=== PATIENT | female | born 1940 | race Caucasian/White ===

== ENCOUNTER 2017-03-16 00:07 | Inpatient (IN) | payer MEDICARE, OTHER ==
[2017-03-16] VITALS (23 sets, daily range): BP systolic 53–125; BP diastolic 32–85; PULSE 67–121; RESP 14–20; TEMP 97.7–101.7; O2SAT 92–100
[~2017-03-16] VITALS: Ht 157.5 cm; Wt 69.9 kg
[2017-03-16] MEDS ORDERED: ACETAMINOPHEN 325 MG TAB PO ONE ×2 (00:15)
[2017-03-16] MEDS ORDERED: IBUPROFEN 600 MG TAB PO ONE (00:15)
--- NOTE | 2017-03-16 00:16 | PD ---
HPI Chief Complaint: fever Time Seen by Provider: 00:09 Travel History International Travel<30 days: No Contact w/Intl Traveler<30days: No Traveled to known affect area: No History of Present Illness HPI This is a detention patient sent over for fever. Duration one day. Symptoms severity is moderate. She reports that she's got a cough productive of thick phlegm. Also had some runny nose and congestion. Denies shortness of breath or chest pain or vomiting or diarrhea or abdominal pains. Symptoms have no alleviating factors. PFSH Social History Alcohol Use: No Tobacco Use: No Substance Use: No Allergies-Medications (Allergen,Severity, Reaction): Coded Allergies: cephalexin (Verified Allergy, Unknown, 03/16/17) erythromycin base (Verified Allergy, Unknown, 03/16/17) shellfish derived (Verified Allergy, Unknown, 03/16/17) Reported Meds & Prescriptions Reported Meds & Active Scripts Active Reported Triamcinolone Acetonide (Triamcinolone Acetonide (Topic) 100 % Pow BID Tizanidine (Tizanidine HCl) 2 Mg Cap 2 Mg PO TID Sennosides 8.6 Mg Tab 8.6 Mg PO HS Protonix (Pantoprazole Sodium) 40 Mg Tab 40 Mg PO DAILY Nystatin Topical (Nystatin) 100,000 unit/gm Cream 1 Applic TOPICAL BID [place] (Hydrocodone-Acetaminophen) 10-325 Mg Tab 1 Tab PO Q6H PRN Multiple Vitamins For Women (Multivit with Calcium,Iron,Min) 1 Each Tablet Mirtazapine 15 Mg Tab 15 Mg PO HS Milk of Magnesia Liq (Magnesium Hydroxide) 400 Mg/5 Ml Susp 15 Ml PO DAILY PRN Lac-Hydrin Five (Lactic Acid (Ammonium Lactate)) 5 % Lot Mucus Relief ER (Guaifenesin) 600 Mg Tab 600 Mg PO BID PRN Gabapentin 400 Mg Cap 400 Cap PO HS Fluticasone Nasal [place] 50 Mcg/Act Naspr 50 Mcg EACH NARE BID 50 mcg/spray Ferrous Sulfate 325 Mg (65 Mg Iron) Tablet 325 Mg PO DAILY Enema Disposable (Sodium Phosphates) 19 Gram-7 Gram/118 Ml Daniella Dulcolax Supp (Bisacodyl) 10 Mg Supp 10 Mg RECTAL DAILY PRN Colace (Docusate Sodium) 100 Mg Capsule 100 Mg PO TID Clonidine (Clonidine HCl) 0.1 Mg Tab 0.1 Mg PO TID Magnesium Citrate Liq (Magnesium Citrate) 300 Ml Btl Aspercreme Heat Topical (Menthol Topical) 10 % Gel 1 Applic TOPICAL DIRECTED PRN Albuterol Neb (Albuterol Sulfate) 2.5 Mg/3 Ml Neb 2.5 Mg NEB Q4HR NEB While awake Review of Systems General / Constitutional: Positive: Fever, Chills Eyes: No: Visual changes HENT: Positive: Rhinorrhea, Congestion, No: Headaches Cardiovascular: No: Chest Pain or Discomfort Respiratory: Positive: Cough, No: Shortness of Breath Gastrointestinal: No: Abdominal Pain Genitourinary: No: Dysuria Musculoskeletal: No: Pain Skin: No Rash Neurologic: No: Weakness Psychiatric: No: Depression Endocrine: No: Polydipsia Hematologic/Lymphatic: No: Easy Bruising Physical Exam Narrative GENERAL: Well-nourished, well-developed patient with fever and chills . SKIN: Focused skin assessment reveals no rash and nodules. Skin is Warm and dry. HEAD: Atraumatic. Normocephalic. EYES: Pupils equal and round. No scleral icterus. No injection or drainage. ENT: No nasal bleeding or discharge. Mucous membranes pink and dry . Nares shows rhinorrhea which is thick and yellow NECK: Trachea midline. No JVD. No meningeal signs CARDIOVASCULAR: Regular rate and rhythm. No murmur appreciated. RESPIRATORY: No accessory muscle use. Clear to auscultation. Breath sounds equal bilaterally. GASTROINTESTINAL: Abdomen soft, non-tender, nondistended. Hepatic and splenic margins not palpable. MUSCULOSKELETAL: No obvious deformities. No clubbing. No cyanosis. No edema. NEUROLOGICAL: Awake and alert. No obvious cranial nerve deficits. Motor grossly within normal limits. Normal speech. PSYCHIATRIC: Appropriate mood and affect; insight and judgment normal. Data Data Last Documented VS Vital Signs Date Time Temp Pulse Resp B/P (MAP) Pulse Ox O2 Delivery O2 Flow Rate FiO2 03/16/17 01:40 100.7 108 20 115/57 (76) 98 Room Air Orders Orders Complete Blood Count With Diff (03/16/17 00:09) Comprehensive Metabolic Panel (03/16/17 00:09) Lactic Acid Sepsis Protocol (03/16/17 00:09) Urinalysis - C+S If Indicated (03/16/17 00:09) Influenzae A/B Antigen (03/16/17 00:09) Blood Culture (03/16/17 00:09) Chest, Single Ap (03/16/17 00:09) Ecg Monitoring (03/16/17 00:09) Iv Access Insert/Monitor (03/16/17 00:09) Oximetry (03/16/17 00:09) Acetaminophen (Tylenol) (03/16/17 00:15) Acetaminophen (Tylenol) (03/16/17 00:15) Ibuprofen (Motrin) (03/16/17 00:15) Sodium Chlor 0.9% 1000 Ml Inj (Ns 1000 M (03/16/17 00:15) Urine Culture (03/16/17 01:10) Labs Laboratory Tests Test 03/16/17 00:10 03/16/17 01:10 White Blood Count 6.0 TH/MM3 Red Blood Count 4.21 MIL/MM3 Hemoglobin 12.5 GM/DL Hematocrit 38.6 % Mean Corpuscular Volume 91.7 FL Mean Corpuscular Hemoglobin 29.6 PG Mean Corpuscular Hemoglobin Concent 32.3 % Red Cell Distribution Width 15.1 % Platelet Count 208 TH/MM3 Mean Platelet Volume 7.7 FL Neutrophils (%) (Auto) 94.2 % Lymphocytes (%) (Auto) 3.9 % Monocytes (%) (Auto) 0.7 % Eosinophils (%) (Auto) 1.1 % Basophils (%) (Auto) 0.1 % Neutrophils # (Auto) 5.7 TH/MM3 Lymphocytes # (Auto) 0.2 TH/MM3 Monocytes # (Auto) 0.0 TH/MM3 Eosinophils # (Auto) 0.1 TH/MM3 Basophils # (Auto) 0.0 TH/MM3 CBC Comment DIFF FINAL Differential Comment Blood Urea Nitrogen 48 MG/DL Creatinine 2.47 MG/DL Random Glucose 108 MG/DL Total Protein 7.6 GM/DL Albumin 3.2 GM/DL Calcium Level 8.6 MG/DL Alkaline Phosphatase 168 U/L Aspartate Amino Transf (AST/SGOT) 52 U/L Alanine Aminotransferase (ALT/SGPT) 48 U/L Total Bilirubin 0.3 MG/DL Sodium Level 137 MEQ/L Potassium Level 4.1 MEQ/L Chloride Level 100 MEQ/L Carbon Dioxide Level 24.0 MEQ/L Anion Gap 13 MEQ/L Estimat Glomerular Filtration Rate 19 ML/MIN Lactic Acid Level 3.9 mmol/L Urine Color YELLOW Urine Turbidity CLOUDY Urine pH 7.5 Urine Specific [place] 1.013 Urine Protein 100 mg/dL Urine Glucose (UA) NEG mg/dL Urine Ketones NEG mg/dL Urine Occult Blood MOD Urine Nitrite NEG Urine Bilirubin NEG Urine Urobilinogen LESS THAN 2.0 MG/DL Urine Leukocyte Esterase LARGE Urine RBC 14 /hpf Urine WBC /hpf Urine WBC Clumps MANY Urine Squamous Epithelial Cells 1 /hpf Urine Transitional Epithelial Cells <1 /hpf Urine Renal Epithelial Cells <1 /hpf Urine Bacteria MANY /hpf Microscopic Urinalysis Comment CATH-CULTURE IND MDM Medical Decision Making Medical Screen Exam Complete: Yes Emergency Medical Condition: Yes Medical Record Reviewed: Yes Differential Diagnosis Pneumonia, sepsis, URI, UTI Narrative Course I have reviewed the patient's electronic medical record. Patient has chronic indwelling Nagy catheter for urinary retention IV placed 2 blood culture sets obtained I gave her Tylenol and Motrin for fever CBC is normal Metabolic profile is reviewed LFTs are normal Urinalysis shows innumerable inflammatory cells and bacteria Lactate is quite elevated at 3.9 I reviewed her chest x-ray shows no infiltrate Influenza swab is negative I gave her 1 L normal saline IV bolus Giving her a second liter normal saline IV bolus. She looks very dry on exam Patient meets criteria for severe sepsis due to UTI with indwelling catheter. Starting her on some IV antibiotics. Will discuss with for admission Critical Care Narrative Aggregate critical care time was 36 minutes. Time to perform other separately billable procedures was not included in the critical care time. My time did not include minutes spent treating any other patients simultaneously or on activities that did not directly contribute to the patient's treatment. The services I provided to this patient were to treat and/or prevent clinically significant deterioration that could result in: Cardiopulmonary arrest, septic shock I provided critical care services requiring my management, as noted below: Chart data review, documentation time, medication orders and management, vital sign assessments/reviewing monitor data, ordering and reviewing lab tests, ordering and interpreting/reviewing x-rays and diagnostic studies, care of the patient and discussion of the patient with the admitting physicians. Sepsis Criteria SIRS Criteria (2 or more): Temp > 100.9 or < 96.8, Heart rate over 90 Sepsis Criteria (SIRS+source): Infect source susp/known Severe Sepsis (+one): Lactate >2 Criteria Outcome: Meets severe sepsis criteria Diagnosis Primary Impression: Severe sepsis Additional Impressions: Bronchitis UTI (urinary tract infection) Qualified Codes: T83.511A - Infection and inflammatory reaction due to indwelling urethral catheter, initial encounter; N39.0 - Urinary tract infection , site not specified Admitting Information Admitting Physician Requests: it Valeriy Phillips MD Mar 16, 2017 00:16
[2017-03-16 00:52] LABS: AUTOMATED NEUTROPHIL # 5.7 TH/MM3 (1.8-7.7); BASOPHIL % 0.1 % (0.0-2.0); EOSINOPHIL # 0.1 TH/MM3 (0-0.4); EOSINOPHIL % 1.1 % (0.0-4.0); HEMATOCRIT 38.6 % (35.0-46.0); HEMO FLAGS DIFF FINAL; LYMPH % 3.9 % (9.0-44.0); LYMPHOCYTE # 0.2 TH/MM3 (1.0-4.8); MEAN CELL VOLUME 91.7 FL (80.0-100.0); MEAN CORPUSCULAR HEMOGLOBIN 29.6 PG (27.0-34.0); MEAN CORPUSCULAR HGB CONC 32.3 % (32.0-36.0); MONO % 0.7 % (0.0-8.0); NEUT % 94.2 % (16.0-70.0); PLATELET COUNT 208 TH/MM3 (150-450); RED BLOOD COUNT 4.21 MIL/MM3 (4.00-5.30); RED CELL DISTRIBUTION WIDTH 15.1 % (11.6-17.2)
[2017-03-16] MEDS: SODIUM CHLOR 0.9% 1000 ML INJ 1,000 ML IV SCH ×13 (00:58→23:53)
--- NOTE | 2017-03-16 01:03 | RADRPT ---
EXAM DATE/TIME: 03/16/2017 00:41 [facility] COMPARISON: No previous studies available for comparison. INDICATIONS : New onset of fever and nausea. MEDICAL HISTORY : None. SURGICAL HISTORY : None. ENCOUNTER: Initial ACUITY: 1 day PAIN SCORE: 0/10 LOCATION: Bilateral chest FINDINGS: A single view of the chest demonstrates the lungs to be symmetrically aerated without evidence of mas s, infiltrate or effusion. The cardiomediastinal contours are unremarkable. Osseous structures are intact. CONCLUSION: No acute disease. Keith Ahuja MD on March 16, 2017 at 1:00 Board Certified Radiologist. This report was verified electronically.
[2017-03-16 01:09] LABS: ALT (GPT) 48 U/L (10-53); ANION GAP 13 MEQ/L (5-15); AST (GOT) 52 U/L (15-37); BLOOD UREA NITROGEN 48 MG/DL (7-18); CHLORIDE 100 MEQ/L (98-107); GLOMERULAR FILTRATION RATE 19 ML/MIN (>89); POTASSIUM 4.1 MEQ/L (3.5-5.1); SODIUM (NA) 137 MEQ/L (136-145)
[2017-03-16 01:11] LABS: ALKALINE PHOSPHATASE 168 U/L (45-117); TOTAL BILIRUBIN ADULT 0.3 MG/DL (0.2-1.0)
[2017-03-16] MEDS ORDERED: SENN8.6T81 PO (01:29)
[2017-03-16] MEDS ORDERED: ENEMENE5 (01:29)
[2017-03-16] MEDS ORDERED: DULC10SU3 RECTAL (01:29)
[2017-03-16] MEDS ORDERED: GUAI600T11 PO (01:29)
[2017-03-16] MEDS ORDERED: PROT40TA PO (01:29)
[2017-03-16] MEDS ORDERED: COLA100C PO (01:29)
[2017-03-16] MEDS ORDERED: TIZA2CAP3 PO (01:29)
[2017-03-16] MEDS ORDERED: MILKSUS PO (01:29)
[2017-03-16] MEDS ORDERED: MIRTA15 PO (01:29)
[2017-03-16] MEDS ORDERED: FLUT50SP EACH NARE (01:29)
[2017-03-16] MEDS ORDERED: GABA400C5 PO (01:29)
[2017-03-16] MEDS ORDERED: CLON0.1T PO (01:29)
[2017-03-16] MEDS ORDERED: MULT-177 (01:29)
[2017-03-16] MEDS ORDERED: MAGNSOL (01:29)
[2017-03-16] MEDS ORDERED: FERR325T8 PO (01:29)
[2017-03-16] MEDS ORDERED: NYST15T TOPICAL (01:29)
[2017-03-16] MEDS ORDERED: ASPE10GE TOPICAL (01:29)
[2017-03-16] MEDS ORDERED: ALBU0.08 NEB (01:29)
[2017-03-16] MEDS ORDERED: HYDR-3366 PO (01:29)
[2017-03-16] MEDS ORDERED: LAC-LOT2 (01:29)
[2017-03-16] MEDS ORDERED: TRIAPOW (01:29)
[2017-03-16 01:32] LABS: BACTERIA, URINE MANY /hpf; BLOOD, URINE MOD (NEG); COMMENT (UR) CATH-CULTURE IND; CULTURE IF INDICATED CATH CULTURE IND; GLUCOSE,URINE NEG (NEG); KETONE, URINE NEG (NEG); NITRITE,URINE NEG (NEG); PH, URINE 7.5 (5.0-8.5); RENAL EPITHELIAL CELLS <1 /hpf; SQUAMOUS EPITHELIAL CELL URINE 1 /hpf (0-5); TRANSITIONAL EPI CELLS, URINE <1 /hpf; URINE COLOR YELLOW (YELLW/STRAW)
[2017-03-16] MEDS ORDERED: GENTAMICIN INJ 325 MG in SODIUM CHLORIDE 0.9% INJ 100 ML IV ONE (02:00)
[2017-03-16] MEDS ORDERED: NALOXONE HCL 0.4 MG/ML AMP IV PRN (02:15)
[2017-03-16] MEDS ORDERED: SODIUM CHLORIDE 0.9% FLUSH 10 ML FLUSH IV FLUSH PRN (02:15)
[2017-03-16 02:44] LABS: LACTIC ACID GHOST NOT REPORTABLE
--- NOTE | 2017-03-16 04:22 | HHI.HP ---
[facility] Janes Sibley MD Admission Diagnosis severe sepsis from UTI Diagnoses: Chief Complaint: fever and lethargy Travel History International Travel<30 Days: No Contact w/Intl Traveler <30 Da: No Traveled to Known Affected Are: No Sepsis Criteria SIRS Criteria (2 or more): Temp > 100.9 or < 96.8, Heart rate over 90 Sepsis Criteria (SIRS+source): Infect source susp/known Severe Sepsis (+one): Lactate >2 Criteria Outcome: Meets severe sepsis criteria History of Present Illness Written by JIMY Howell acting as scribe for [Jonna] on 03/16/17 at 04: 20. 76 y/o female with a history of gerd, anemia, HTN, depression, hypothyroid, and urinary retention with a chronic catheter was brought to the ED from a SNF for fever. Patient states she started vomiting today, and does not know the last time her catheter was changed. Patient is lethargic and ROS is difficult to assess. She denies any chest pain or sob. She grimaces when abdomen is palpitated. She is very diaphoretic at this time. Most of patients history is obtained from long-term documentation. Review of Systems ROS Limitations: Other (Lethargic) Past Family Social History Past Medical History Gerd Anemia HTN Urinary retention Depression Hypothyroid Past Surgical History Left hip repair Reported Medications Reported Meds & Active Scripts Active Reported Triamcinolone Acetonide (Triamcinolone Acetonide (Topic) 100 % Pow BID Tizanidine (Tizanidine HCl) 2 Mg Cap 2 Mg PO TID Sennosides 8.6 Mg Tab 8.6 Mg PO HS Protonix (Pantoprazole Sodium) 40 Mg Tab 40 Mg PO DAILY Nystatin Topical (Nystatin) 100,000 unit/gm Cream 1 Applic TOPICAL BID [place] (Hydrocodone-Acetaminophen) 10-325 Mg Tab 1 Tab PO Q6H PRN Multiple Vitamins For Women (Multivit with Calcium,Iron,Min) 1 Each Tablet Mirtazapine 15 Mg Tab 15 Mg PO HS Milk of Magnesia Liq (Magnesium Hydroxide) 400 Mg/5 Ml Susp 15 Ml PO DAILY PRN Lac-Hydrin Five (Lactic Acid (Ammonium Lactate)) 5 % Lot Mucus Relief ER (Guaifenesin) 600 Mg Tab 600 Mg PO BID PRN Gabapentin 400 Mg Cap 400 Cap PO HS Fluticasone Nasal [place] 50 Mcg/Act Naspr 50 Mcg EACH NARE BID 50 mcg/spray Ferrous Sulfate 325 Mg (65 Mg Iron) Tablet 325 Mg PO DAILY Enema Disposable (Sodium Phosphates) 19 Gram-7 Gram/118 Ml Daniella Dulcolax Supp (Bisacodyl) 10 Mg Supp 10 Mg RECTAL DAILY PRN Colace (Docusate Sodium) 100 Mg Capsule 100 Mg PO TID Clonidine (Clonidine HCl) 0.1 Mg Tab 0.1 Mg PO TID Magnesium Citrate Liq (Magnesium Citrate) 300 Ml Btl Aspercreme Heat Topical (Menthol Topical) 10 % Gel 1 Applic TOPICAL DIRECTED PRN Albuterol Neb (Albuterol Sulfate) 2.5 Mg/3 Ml Neb 2.5 Mg NEB Q4HR NEB While awake Allergies: Coded Allergies: cephalexin (Verified Allergy, Unknown, 03/16/17) erythromycin base (Verified Allergy, Unknown, 03/16/17) shellfish derived (Verified Allergy, Unknown, 03/16/17) Active Ordered Medications Current Medications Medications (Trade) Dose Ordered Sig/Marni Route Start Time Stop Time Status Last Admin Sodium Chloride 1,000 ml @ 999 mls/hr Q1H1M IV 03/16/17 00:15 03/16/17 00:58 (NS Flush) 2 ml UNSCH PRN IV FLUSH 03/16/17 02:15 (NS Flush) 2 ml BID IV FLUSH 03/16/17 09:00 (Narcan Inj) 0.4 mg UNSCH PRN IV 03/16/17 02:15 Levofloxacin/ Dextrose 150 ml @ 100 mls/hr Q24H IV 03/16/17 09:00 Sodium Chloride 1,000 ml @ 100 mls/hr Q10H IV 03/16/17 04:30 Family History Family history is unknown Social History Patient does not smoke, drink or use illicit drugs. Physical Exam Vital Signs Vital Signs Date Time Temp Pulse Resp B/P (MAP) Pulse Ox O2 Delivery O2 Flow Rate FiO2 03/16/17 03:35 106 19 118/62 (80) 97 Room Air 03/16/17 01:40 100.7 108 20 115/57 (76) 98 Room Air 03/16/17 00:59 106 19 98 Room Air 03/16/17 00:11 101.7 121 20 124/84 (97) 93 03/16/17 00:10 20 93 Room Air Physical Exam GENERAL: This is a well-nourished, well-developed patient, in no apparent distress. SKIN: Diaphoretic HEAD: Atraumatic. Normocephalic. EYES: Pupils equal round and reactive. ENT: Nose without bleeding, purulent drainage or septal hematoma. Airway patent. NECK: Trachea midline. No JVD or lymphadenopathy. Supple, nontender, no meningeal signs. CARDIOVASCULAR: Regular rate and rhythm with a systolic murmurs, no gallops, or rubs. RESPIRATORY: Clear to auscultation. Breath sounds equal bilaterally. No wheezes , rales, or rhonchi. GASTROINTESTINAL: Abdomen soft, tender, nondistended. No hepato-splenomegaly, or palpable masses. No guarding. MUSCULOSKELETAL: Extremities without clubbing, cyanosis, or edema. No joint tenderness, effusion, or edema noted. No calf tenderness. NEUROLOGICAL: Sleepy and intermittently alert. Motor and sensory grossly within normal limits. Normal speech. Laboratory Laboratory Tests Test 03/16/17 00:10 03/16/17 01:10 03/16/17 03:00 White Blood Count 6.0 Red Blood Count 4.21 Hemoglobin 12.5 Hematocrit 38.6 Mean Corpuscular Volume 91.7 Mean Corpuscular Hemoglobin 29.6 Mean Corpuscular Hemoglobin Concent 32.3 Red Cell Distribution Width 15.1 Platelet Count 208 Mean Platelet Volume 7.7 Neutrophils (%) (Auto) 94.2 Lymphocytes (%) (Auto) 3.9 Monocytes (%) (Auto) 0.7 Eosinophils (%) (Auto) 1.1 Basophils (%) (Auto) 0.1 Neutrophils # (Auto) 5.7 Lymphocytes # (Auto) 0.2 Monocytes # (Auto) 0.0 Eosinophils # (Auto) 0.1 Basophils # (Auto) 0.0 CBC Comment DIFF FINAL Differential Comment Blood Urea Nitrogen 48 Creatinine 2.47 Random Glucose 108 Total Protein 7.6 Albumin 3.2 Calcium Level 8.6 Alkaline Phosphatase 168 Aspartate Amino Transf (AST/SGOT) 52 Alanine Aminotransferase (ALT/SGPT) 48 Total Bilirubin 0.3 Sodium Level 137 Potassium Level 4.1 Chloride Level 100 Carbon Dioxide Level 24.0 Anion Gap 13 Estimat Glomerular Filtration Rate 19 Lactic Acid Level 3.9 2.4 Urine Color YELLOW Urine Turbidity CLOUDY Urine pH 7.5 Urine Specific [place] 1.013 Urine Protein 100 Urine Glucose (UA) NEG Urine Ketones NEG Urine Occult Blood MOD Urine Nitrite NEG Urine Bilirubin NEG Urine Urobilinogen LESS THAN 2.0 Urine Leukocyte Esterase LARGE Urine RBC 14 Urine WBC Urine WBC Clumps MANY Urine Squamous Epithelial Cells 1 Urine Transitional Epithelial Cells <1 Urine Renal Epithelial Cells <1 Urine Bacteria MANY Microscopic Urinalysis Comment CATH-CULTURE IND Date/Time Source Procedure Growth Status 03/16/17 00:30 Blood Peripheral Aerobic Blood Culture Pending Received 03/16/17 00:30 Blood Peripheral Anaerobic Blood Culture Pending Received 03/16/17 00:20 Nasal Washing Influenza Types A,B Antigen (TRUDI) - Final NEGATIVE FOR FLU A AND B ANTIGEN.... Complete 03/16/17 01:10 Urine Catheterized Urine Urine Culture Pending Received Result Diagram: 03/16/17 0010 03/16/17 0010 Imaging Last Impressions Chest X-Ray 03/16/17 0009 Signed Impressions: Service Date/Time: February 00:41 - CONCLUSION: No acute disease. MD Destin Salgadoi VTE Risk Assessment Caprini VTE Risk Assessment: Mod/High Risk (score >= 2) Caprini Risk Assessment Model Point Value = 1 Point Value = 2 Point Value = 3 Point Value = 5 Age 41-60 Minor surgery BMI > 25 kg/m2 Swollen legs Varicose veins or History of unexplained or recurrent spontaneous Oral contraceptives or hormone replacement Sepsis (< 1 month) Serious lung disease, including pneumonia (< 1 month) Abnormal pulmonary function Acute myocardial infarction Congestive heart failure (< 1 month) History of inflammatory bowel disease Medical patient at bed rest Age 61-74 Arthroscopic surgery Major open surgery (> 45 min) Laparoscopic surgery (> 45 min) Malignancy Confined to bed (> 72 hours) Immobilizing plaster cast Central venous access Age >= 75 History of VTE Family history of VTE Factor V Leiden Prothrombin [id number] Lupus anticoagulant Anticardiolipin antibodies Elevated serum homocysteine Heparin-induced thrombocytopenia Other congenital or acquired thrombophilia Stroke (< 1 month) Elective arthroplasty Hip, pelvis, or leg fracture Acute spinal cord injury (< 1 month) Prophylaxis Regimen Total Risk Factor Score Risk Level Prophylaxis Regimen 0-1 Low Early ambulation 2 Moderate Order ONE of the following: *Sequential Compression Device (SCD) *Heparin 5000 units SQ BID 3-4 Higher Order ONE of the following medications: *Heparin 5000 units SQ TID *Enoxaparin/Lovenox 40 mg SQ daily (WT < 150 kg, CrCl > 30 mL/min) *Enoxaparin/Lovenox 30 mg SQ daily (WT < 150 kg, CrCl > 10-29 mL/min) *Enoxaparin/Lovenox 30 mg SQ BID (WT < 150 kg, CrCl > 30 mL/min) AND/OR *Sequential Compression Device (SCD) 5 or more Highest Order ONE of the following medications: *Heparin 5000 units SQ TID (Preferred with Epidurals) *Enoxaparin/Lovenox 40 mg SQ daily (WT < 150 kg, CrCl > 30 mL/min) *Enoxaparin/Lovenox 30 mg SQ daily (WT < 150 kg, CrCl > 10-29 mL/min) *Enoxaparin/Lovenox 30 mg SQ BID (WT < 150 kg, CrCl > 30 mL/min) AND *Sequential Compression Device (SCD) Assessment and Plan Problem List: (1) Severe sepsis ICD Code: A41.9 - Sepsis, unspecified organism; R65.20 - Severe sepsis without septic shock Status: Acute (2) Bronchitis ICD Code: J40 - Bronchitis, not specified as acute or chronic Status: Acute (3) UTI (urinary tract infection) ICD Code: N39.0 - Urinary tract infection, site not specified Status: Acute Assessment and Plan 76 y/o female with a history of gerd, anemia, HTN, depression, hypothyroid, and urinary retention with a chronic catheter was brought to the ED from a SNF for fever. Severe sepsis, HR 121, T Max 101.7, lactic acid 3.9, suspected due to UTI from chronic indwelling catheter Chest x ray reviewed and is unremarkable -IV antibiotics vancomycin, and Zosyn -2 L bolus given in ED -Trend lactic acid -IVF for hydration -Blood culture and urine culture pending Acute Kidney injury, creatine 2.4, unknown baseline, suspected dehydration -Cont IVF as above -Trend BMP Bronchitis, patient with cough Nasal washing negative for flu -Atrovent scheduled and PRN HTN, chronic -Cont home medication Catapres, monitor vitals DVT prophylaxis: SCDs and Heparin This note was transcribed by scribe [Brianna Robbins]. I, Dr. Bala Coyle personally performed the history, physical exam, and medical decision making; and confirmed the accuracy of the information in the transcribed note. Authenticated by Dr. Bala Coyle on 03/16/17 at 04:20. Discussed Condition With Patient, RN and Ed physician Physician Certification 2 Midnight Certification Type: Admission for Inpatient Services Order for Inpatient Services The services are ordered in accordance with Medicare regulations or non- Medicare payer requirements, as applicable. In the case of services not specified as inpatient-only, they are appropriately provided as inpatient services in accordance with the 2-midnight benchmark. Estimated LOS (days): 3 days is the estimated time the patient will need to remain in the hospital, assuming treatment plan goals are met and no additional complications. Post-Hospital Plan: SNF Problem Qualifiers (1) UTI (urinary tract infection): Qualified Codes: T83.511A - Infection and inflammatory reaction due to indwelling urethral catheter, initial encounter; N39.0 - Urinary tract infection , site not specified Brianna Robbins Mar 16, 2017 04:22 Bala Coyle MD Mar 17, 2017 09:21
[2017-03-16] MEDS ORDERED: RESP: IPRATROPIUM 0.5 MG/2.5 ML NEB NEB PRN (04:30)
[2017-03-16] MEDS ORDERED: Vancomycin Consult Pharmacy 1 EA OTHER SCH (04:45)
[2017-03-16] MEDS ORDERED: PIPERACIL-TAZO 4.5 GM PREMIX 100 ML IV SCH (04:45)
[2017-03-16] MEDS ORDERED: VANCOMYCIN 1,000 MG/NS 250 ML IV ONE ×2 (05:00)
[2017-03-16] MEDS: HEPARIN SODIUM - SQ 10,000 UNITS/ML VIAL SQ SCH ×3 (06:15→21:54)
[2017-03-16] MEDS: RESP: IPRATROPIUM 0.5 MG/2.5 ML NEB NEB SCH ×2 (08:38→22:47)
[2017-03-16] MEDS: PANTOPRAZOLE SOD 40 MG DELAYED RELEASE TAB PO SCH (09:00)
[2017-03-16] MEDS ORDERED: cloNIDine HCL 0.1 MG TAB PO SCH (09:00)
[2017-03-16] MEDS: FERROUS SULFATE 325 MG (65 MG ELEMENTAL IRON) TAB PO SCH (09:00)
[2017-03-16] MEDS: DOCUSATE SODIUM 100 MG CAP PO SCH ×3 (09:00→18:00)
[2017-03-16] MEDS: LEVOFLOXACIN 750 MG PREMIX INJ 150 ML IV SCH (09:43)
[2017-03-16] MEDS: SODIUM CHLORIDE 0.9% FLUSH 10 ML FLUSH IV FLUSH SCH ×2 (09:43→21:53)
--- NOTE | 2017-03-16 09:53 | HHI.PR ---
Subjective Remarks Follow-up UTI, sepsis. Patient is sleeping, but awakens and answers questions briefly before falling asleep again. Objective Vitals Vital Signs Date Time Temp Pulse Resp B/P (MAP) Pulse Ox O2 Delivery O2 Flow Rate FiO2 03/16/17 09:42 84/64 (71) 03/16/17 09:00 85 03/16/17 08:38 92 Nasal Cannula 4.00 03/16/17 08:00 97.7 91 14 89/51 (64) 03/16/17 07:00 88 03/16/17 05:00 98.1 98 18 125/78 (94) 94 03/16/17 04:19 03/16/17 03:35 106 19 118/62 (80) 97 Room Air 03/16/17 01:40 100.7 108 20 115/57 (76) 98 Room Air 03/16/17 00:59 106 19 98 Room Air 03/16/17 00:11 101.7 121 20 124/84 (97) 93 03/16/17 00:10 20 93 Room Air I/O 03/15/17 03/15/17 03/15/17 03/16/17 03/16/17 03/16/17 07:00 15:00 23:00 07:00 15:00 23:00 Intake Total 0 ml Balance 0 ml Intake Oral 0 ml Result Diagram: 03/16/17 0010 03/16/17 0010 Imaging Last Impressions Chest X-Ray 03/16/17 0009 Signed Impressions: Service Date/Time: February 00:41 - CONCLUSION: No acute disease. Keith Ahuja MD Objective Remarks General: Elderly female in no acute distress. Heart: Regular rate and rhythm. No murmur. Lungs: Clear to auscultation bilaterally. No wheezes, rales, or rhonchi. Breathing is nonlabored. Abdomen: Soft, nontender, nondistended. Extremities: No lower extremity edema. Psych: Sleeping. Awakens to verbal stimuli, but falls asleep again quickly. Procedures None Urinary Catheter: Yes Assessment to: Continue Mccarty insert reason: Obstruction/Retention Vascular Central Line Catheter: No A/P Problem List: (1) Severe sepsis ICD Code: A41.9 - Sepsis, unspecified organism; R65.20 - Severe sepsis without septic shock Status: Acute (2) Bronchitis ICD Code: J40 - Bronchitis, not specified as acute or chronic Status: Acute (3) UTI (urinary tract infection) ICD Code: N39.0 - Urinary tract infection, site not specified Status: Acute (4) Urinary retention ICD Code: R33.9 - Retention of urine, unspecified Assessment and Plan 1. Severe sepsis: Patient presented with tachycardia, fever, elevated lactic acid. Source suspected to be UTI. Patient has chronic indwelling Mccarty catheter. Continue IV antibiotics. Serum lactic acid trending down. Continue IV fluids. Blood and urine cultures are pending. Consult infectious disease. Replace mccarty catheter. 2. Acute kidney injury: Continue IV fluids. Repeat labs. 3. Bronchitis: Influenza negative. Atrovent scheduled and as needed. 4. Hypertension: Chronic. Continue clonidine. 5. DVT prophylaxis: SCDs, heparin. Problem Qualifiers (1) UTI (urinary tract infection): Qualified Codes: T83.511A - Infection and inflammatory reaction due to indwelling urethral catheter, initial encounter; N39.0 - Urinary tract infection , site not specified Valeriy Monique MD Mar 16, 2017 09:53
[2017-03-16 12:31] LABS: AUTOMATED NEUTROPHIL # 20.5 TH/MM3 (1.8-7.7); EOSINOPHIL % 0.1 % (0.0-4.0); HEMATOCRIT 33.5 % (35.0-46.0); HEMO FLAGS DIFF FINAL; LYMPH % 2.9 % (9.0-44.0); LYMPHOCYTE # 0.7 TH/MM3 (1.0-4.8); MEAN CELL VOLUME 92.5 FL (80.0-100.0); MEAN CORPUSCULAR HEMOGLOBIN 29.5 PG (27.0-34.0); MEAN CORPUSCULAR HGB CONC 31.9 % (32.0-36.0); MONO % 5.5 % (0.0-8.0); NEUT % 91.5 % (16.0-70.0); PLATELET COUNT 204 TH/MM3 (150-450); RED BLOOD COUNT 3.62 MIL/MM3 (4.00-5.30); RED CELL DISTRIBUTION WIDTH 15.8 % (11.6-17.2); WHITE BLOOD COUNT 22.4 TH/MM3 (4.0-11.0)
[2017-03-16 12:54] LABS: BICARBONATE 22.9 MEQ/L (21.0-32.0); POTASSIUM 3.9 MEQ/L (3.5-5.1)
--- NOTE | 2017-03-16 14:20 | PD.CONS ---
[facility] Service Critical Care Medicine Consult Requested By Dr. Monique Reason for Consult hypotension Primary Care Physician Janes Sibley MD History of Present Illness This is a 76-year-old female with a history of urinary retention with chronic Nagy catheter who was brought in on 03/15 from her care home facility with fever. She was per report lethargic in the emergency department. She was admitted to the hospital with a presumptive diagnosis of catheter associated urinary tract infection from her outside facility. In the emergency department she was given a dose of Zosyn IV, gentamicin IV, vancomycin IV. She was admitted in the hospitalist team placed her on vancomycin and Levaquin. Despite optimal therapy, she continued to be altered and became more hypotensive throughout the morning. She was rapid response for persistent hypotension and transferred to the intensive care unit for closer monitoring and management of her now presumed septic shock. Critical care medicine is consulted to evaluate and manage her shock as well as her multiorgan dysfunction including acute kidney injury and metabolic encephalopathy. Unfortunately, the patient is to encephalopathic to answer questions and no additional history can be obtained from the patient. Review of Systems ROS Limitations: Clinical Condition, Altered Mental Status Past Family Social History Allergies: Coded Allergies: cephalexin (Verified Allergy, Unknown, 03/16/17) erythromycin base (Verified Allergy, Unknown, 03/16/17) shellfish derived (Verified Allergy, Unknown, 03/16/17) Past Medical History Gerd Anemia HTN Urinary retention Depression Hypothyroid Past Surgical History Left hip repair Reported Medications Triamcinolone Acetonide (Triamcinolone Acetonide (Topic) 100 % Pow BID Tizanidine (Tizanidine HCl) 2 Mg Cap 2 Mg PO TID Sennosides 8.6 Mg Tab 8.6 Mg PO HS Protonix (Pantoprazole Sodium) 40 Mg Tab 40 Mg PO DAILY Nystatin Topical (Nystatin) 100,000 unit/gm Cream 1 Applic TOPICAL BID [place] (Hydrocodone-Acetaminophen) 10-325 Mg Tab 1 Tab PO Q6H PRN Multiple Vitamins For Women (Multivit with Calcium,Iron,Min) 1 Each Tablet Mirtazapine 15 Mg Tab 15 Mg PO HS Milk of Magnesia Liq (Magnesium Hydroxide) 400 Mg/5 Ml Susp 15 Ml PO DAILY PRN Lac-Hydrin Five (Lactic Acid (Ammonium Lactate)) 5 % Lot Mucus Relief ER (Guaifenesin) 600 Mg Tab 600 Mg PO BID PRN Gabapentin 400 Mg Cap 400 Cap PO HS Fluticasone Nasal [place] 50 Mcg/Act Naspr 50 Mcg EACH NARE BID 50 mcg/spray Ferrous Sulfate 325 Mg (65 Mg Iron) Tablet 325 Mg PO DAILY Enema Disposable (Sodium Phosphates) 19 Gram-7 Gram/118 Ml Daniella Dulcolax Supp (Bisacodyl) 10 Mg Supp 10 Mg RECTAL DAILY PRN Colace (Docusate Sodium) 100 Mg Capsule 100 Mg PO TID Clonidine (Clonidine HCl) 0.1 Mg Tab 0.1 Mg PO TID Magnesium Citrate Liq (Magnesium Citrate) 300 Ml Btl Aspercreme Heat Topical (Menthol Topical) 10 % Gel 1 Applic TOPICAL DIRECTED PRN Albuterol Neb (Albuterol Sulfate) 2.5 Mg/3 Ml Neb 2.5 Mg NEB Q4HR NEB While awake Active Ordered Medications See MAR Family History Unknown and unobtainable due to the clinical condition of the patient. Unlikely to be contributory to her acute illness Social History Patient does not smoke, drink or use illicit drugs. Physical Exam Vital Signs Vital Signs Date Time Temp Pulse Resp B/P (MAP) Pulse Ox O2 Delivery O2 Flow Rate FiO2 03/16/17 12:00 82 03/16/17 11:00 88 03/16/17 10:00 89 03/16/17 09:42 84/64 (71) 03/16/17 09:00 85 03/16/17 08:38 92 Nasal Cannula 4.00 03/16/17 08:00 97.7 91 14 89/51 (64) 03/16/17 07:00 88 03/16/17 05:00 98.1 98 18 125/78 (94) 94 03/16/17 04:19 03/16/17 03:35 106 19 118/62 (80) 97 Room Air 03/16/17 01:40 100.7 108 20 115/57 (76) 98 Room Air 03/16/17 00:59 106 19 98 Room Air 03/16/17 00:11 101.7 121 20 124/84 (97) 93 03/16/17 00:10 20 93 Room Air Physical Exam GENERAL: Elderly female, lying in bed, critically ill, somnolent HEENT: Normocephalic. Atraumatic. Pupils equal, round, reactive, conjugate. Mucous membranes are dry NECK: Trachea is midline. There is no JVD. CHEST: Equal chest rise. Clear to auscultation. On nasal cannula oxygen CARDIOVASCULAR: Normal rate, regular rhythm. Heart rate in the 80s. Sinus by telemetry. ABDOMEN: Soft, nontender, nondistended. No guarding. MUSCULOSKELETAL: Pulses 2+. No peripheral edema. GENITOURINARY: Outside facility Nagy catheter in place with cloudy urine with large amount of sediment in it NEUROLOGICAL: RASS -2. Awakens. Follows commands weakly. Not oriented. Moves all extremities. Nonfocal. Laboratory Laboratory Tests Test 03/16/17 00:10 03/16/17 01:10 03/16/17 03:00 03/16/17 11:39 White Blood Count 6.0 22.4 Red Blood Count 4.21 3.62 Hemoglobin 12.5 10.7 Hematocrit 38.6 33.5 Mean Corpuscular Volume 91.7 92.5 Mean Corpuscular Hemoglobin 29.6 29.5 Mean Corpuscular Hemoglobin Concent 32.3 31.9 Red Cell Distribution Width 15.1 15.8 Platelet Count 208 204 Mean Platelet Volume 7.7 8.3 Neutrophils (%) (Auto) 94.2 91.5 Lymphocytes (%) (Auto) 3.9 2.9 Monocytes (%) (Auto) 0.7 5.5 Eosinophils (%) (Auto) 1.1 0.1 Basophils (%) (Auto) 0.1 0.0 Neutrophils # (Auto) 5.7 20.5 Lymphocytes # (Auto) 0.2 0.7 Monocytes # (Auto) 0.0 1.2 Eosinophils # (Auto) 0.1 0.0 Basophils # (Auto) 0.0 0.0 CBC Comment DIFF FINAL DIFF FINAL Differential Comment Blood Urea Nitrogen 48 52 Creatinine 2.47 2.53 Random Glucose 108 84 Total Protein 7.6 Albumin 3.2 Calcium Level 8.6 8.0 Alkaline Phosphatase 168 Aspartate Amino Transf (AST/SGOT) 52 Alanine Aminotransferase (ALT/SGPT) 48 Total Bilirubin 0.3 Sodium Level 137 139 Potassium Level 4.1 3.9 Chloride Level 100 105 Carbon Dioxide Level 24.0 22.9 Anion Gap 13 11 Estimat Glomerular Filtration Rate 19 18 Lactic Acid Level 3.9 2.4 Urine Color YELLOW Urine Turbidity CLOUDY Urine pH 7.5 Urine Specific [place] 1.013 Urine Protein 100 Urine Glucose (UA) NEG Urine Ketones NEG Urine Occult Blood MOD Urine Nitrite NEG Urine Bilirubin NEG Urine Urobilinogen LESS THAN 2.0 Urine Leukocyte Esterase LARGE Urine RBC 14 Urine WBC Urine WBC Clumps MANY Urine Squamous Epithelial Cells 1 Urine Transitional Epithelial Cells <1 Urine Renal Epithelial Cells <1 Urine Bacteria MANY Microscopic Urinalysis Comment CATH-CULTURE IND Date/Time Source Procedure Growth Status 03/16/17 00:30 Blood Peripheral Aerobic Blood Culture Pending Received 03/16/17 00:30 Blood Peripheral Anaerobic Blood Culture Pending Received 03/16/17 00:20 Nasal Washing Influenza Types A,B Antigen (TRUDI) - Final NEGATIVE FOR FLU A AND B ANTIGEN.... Complete 03/16/17 01:10 Urine Catheterized Urine Urine Culture Pending Received Result Diagram: 03/16/17 1139 03/16/17 1139 Imaging Last Impressions Chest X-Ray 03/16/17 0009 Signed Impressions: Service Date/Time: , March 16, 2017 00:41 - CONCLUSION: No acute disease. Keith Ahuja MD Assessment and Plan Assessment and Plan Assessment: 76 year old female with history of urinary retention now presents with Septic shock secondary to outside facility catheter associated urinary tract infection. Agree with transfer to ICU as her hypotension is worrisome. Will continue ivf resuscitation. Patient has a history of cephalosporin allergy , so we will proceed with broad spectrum abx coverage to cover health-care associated bacteria, to include Vancomycin, Levaquin, Aztreonam, and Flagyl. Await urine culture results. may require vasopressors. currently protecting airway, although would have high concern for possible decompensation requiring intubation. critically ill at this time. Plan by systems: Neurologic: Metabolic encephalopathy - secondary to septic shock - avoid long-acting sedating meds - hold tizanidine Respiratory: Atelectasis - aggressive pulmonary toilet - wean o2 by il for goal spo2 > 90% Cardiovascular: Septic Shock - continue mivf @ 100cc/hr - NS bolus - trend lactates - watch uop closely - if hypotension does not rapidly resolve with additional resuscitation, will need vasopressors Renal: Acute kidney injury - secondary to septic shock - watch uop closely - ivf as above. -- Strict I/Os FEN/GI: Lactic acidosis Acute protein calorie malnutrition- moderate - NPO while in shock - swallow evaluation given altered mental status - trend lactates - mivf Heme/ID: Urinary tract infection Septic shock - f/u cultures - Vanc, Levaquin, Aztreonam, Flagyl - ID consult. Endocrine: Hyperglycemia of critical illness -- SSI, medium scale, every 6 Prophylaxis: GI Prophylaxis Protonix DVT Prophylaxis -- SCDs Subcutaneous heparin Lines: Peripheral IVs. May require central access We'll replace Nagy catheter Dispo: Admit to ICU. Remains critical illness This patient remains critically ill with one or more organ systems which are or may become a threat to life. I have spent in excess of 40 minutes discontinuously in the care and management of this patient. This time is exclusive of procedures, and includes, but is not limited to, evaluation of the patient, review of the medical record, discussions with family, consultants, nursing staff, or respiratory therapy, and documentation in the medical record. Tevin Mckeon MD Mar 16, 2017 14:20
[2017-03-16] MEDS ORDERED: AZTREONAM INJ 1,000 MG in SODIUM CHLORIDE 0.9% INJ 100 ML IV SCH (14:30)
[2017-03-16] MEDS ORDERED: MAGNESIUM OXIDE 400 MG TAB PO PRN (15:00)
[2017-03-16] MEDS ORDERED: POTASSIUM PHOSPHATE MONOBASIC 500 MG TAB PO PRN (15:00)
[2017-03-16] MEDS ORDERED: MAGNESIUM SULFATE INJ 4 GM in SODIUM CHLORIDE 0.9% INJ 92 ML IV PRN (15:00)
[2017-03-16] MEDS ORDERED: POTASSIUM PHOSPHATE MONOBASIC 500 MG TAB PO/TUBE PRN (15:00)
[2017-03-16] MEDS ORDERED: POTASSIUM PHOSPHATE INJ 30 MMOL in SODIUM CHLOR 0.9% 250 ML INJ 250 ML IV PRN (15:00)
[2017-03-16] MEDS ORDERED: MAGNESIUM SULFATE INJ 2 GM in SODIUM CHLORIDE 0.9% INJ 96 ML IV PRN (15:00)
[2017-03-16] MEDS ORDERED: SODIUM PHOSPHATE INJ 30 MMOL in SODIUM CHLOR 0.9% 250 ML INJ 240 ML IV PRN (15:00)
[2017-03-16] MEDS ORDERED: POTASSIUM CHLOR 40 MEQ PREMIX 100 ML IV PRN ×2 (15:00)
[2017-03-16] MEDS ORDERED: POTASSIUM CHLOR 20 MEQ PREMIX 100 ML IV PRN ×2 (15:00)
[2017-03-16] MEDS ORDERED: DEXTROSE 50% IN WATER 50 ML VIAL(D50) IV PUSH PRN (15:00)
--- NOTE | 2017-03-16 16:35 | PD.CONS ---
HPI Service Nephrology Consult Requested By Reason for Consult Acute Renal failure Primary Care Physician Janes Sibley MD History of Present Illness This is a 76 y/o [facility] with fever, suspected UTI. She has chronic indwelling Mccarty for urinary retention and neurogenic bladder. Earlier today she became hypotensive and was transferred to [facility]. Her blood pressure was as low a 50s systolic. Creatinine on arrival was 2.47, is 2.53 currently. Her WBC have increased from normal to 22K. She has received IVF, BP has improved. PMH listed below. She has been placed on antibiotics. Her BC are positive for GNR. She is a full code. Of note she informs us that she was admitted earlier this year at [facility] and required one dialysis treatment for renal failure, has not followed with nephrology since. (Erin Kam) Review of Systems Constitutional: COMPLAINS OF: Fatigue, Fever Cardiovascular: DENIES: Chest pain, Palpitations Gastrointestinal: COMPLAINS OF: Abdominal pain, DENIES: Constipation Musculoskeletal: DENIES: Joint pain (Erin Kam) Past Family Social History Allergies: Coded Allergies: cephalexin (Verified Allergy, Unknown, 03/16/17) erythromycin base (Verified Allergy, Unknown, 03/16/17) shellfish derived (Verified Allergy, Unknown, 03/16/17) Past Medical History Gerd Anemia HTN Urinary retention with chronic mccarty Depression Hypothyroid Bedbound with foot drop Hx WHIT in Jul or Aug 2016 needing HD x 1 Past Surgical History Left hip repair Reported Medications Triamcinolone Acetonide (Triamcinolone Acetonide (Topic) 100 % Pow BID Tizanidine (Tizanidine HCl) 2 Mg Cap 2 Mg PO TID Sennosides 8.6 Mg Tab 8.6 Mg PO HS Protonix (Pantoprazole Sodium) 40 Mg Tab 40 Mg PO DAILY Nystatin Topical (Nystatin) 100,000 unit/gm Cream 1 Applic TOPICAL BID [place] (Hydrocodone-Acetaminophen) 10-325 Mg Tab 1 Tab PO Q6H PRN Multiple Vitamins For Women (Multivit with Calcium,Iron,Min) 1 Each Tablet Mirtazapine 15 Mg Tab 15 Mg PO HS Milk of Magnesia Liq (Magnesium Hydroxide) 400 Mg/5 Ml Susp 15 Ml PO DAILY PRN Lac-Hydrin Five (Lactic Acid (Ammonium Lactate)) 5 % Lot Mucus Relief ER (Guaifenesin) 600 Mg Tab 600 Mg PO BID PRN Gabapentin 400 Mg Cap 400 Cap PO HS Fluticasone Nasal [place] 50 Mcg/Act Naspr 50 Mcg EACH NARE BID 50 mcg/spray Ferrous Sulfate 325 Mg (65 Mg Iron) Tablet 325 Mg PO DAILY Enema Disposable (Sodium Phosphates) 19 Gram-7 Gram/118 Ml Daniella Dulcolax Supp (Bisacodyl) 10 Mg Supp 10 Mg RECTAL DAILY PRN Colace (Docusate Sodium) 100 Mg Capsule 100 Mg PO TID Clonidine (Clonidine HCl) 0.1 Mg Tab 0.1 Mg PO TID Magnesium Citrate Liq (Magnesium Citrate) 300 Ml Btl Aspercreme Heat Topical (Menthol Topical) 10 % Gel 1 Applic TOPICAL DIRECTED PRN Albuterol Neb (Albuterol Sulfate) 2.5 Mg/3 Ml Neb 2.5 Mg NEB Q4HR NEB While awake Active Ordered Medications Current Medications Medications (Trade) Dose Ordered Sig/Marni Route Start Time Stop Time Status Last Admin (NS Flush) 2 ml UNSCH PRN IV FLUSH 03/16/17 02:15 (NS Flush) 2 ml BID IV FLUSH 03/16/17 09:00 03/16/17 09:43 (Narcan Inj) 0.4 mg UNSCH PRN IV 03/16/17 02:15 Levofloxacin/ Dextrose 150 ml @ 100 mls/hr Q24H IV 03/16/17 09:00 03/16/17 09:43 Sodium Chloride 1,000 ml @ 100 mls/hr Q10H IV 03/16/17 04:30 03/16/17 06:15 (Atrovent Neb) 0.5 mg Q6HR NEB NEB 03/16/17 10:00 03/16/17 08:38 (Atrovent Neb) 0.5 mg Q2HR NEB PRN NEB 03/16/17 04:30 (Colace) 100 mg TID PO 03/16/17 09:00 (Ferrous Sulfate) 325 mg DAILY PO 03/16/17 09:00 ([place] 10-325 Mg) 1 tab Q6H PRN PO 03/16/17 04:45 (Protonix) 40 mg DAILY PO 03/16/17 09:00 Pharmacy Profile Note 0 ml @ 0 mls/hr UNSCH OTHER 03/16/17 04:45 Piperacillin Sod/ Tazobactam Sod 100 ml @ 200 mls/hr Q6H IV 03/16/17 04:45 UNV (Heparin Inj) 5,000 units Q8HR SQ 03/16/17 06:00 03/16/17 06:15 Metronidazole 100 ml @ 100 mls/hr Q6H IV 03/16/17 14:30 UNV (Mag-Ox) 800 mg UNSCH PRN PO 03/16/17 15:00 UNV Magnesium Sulfate 4 gm/Sodium Chloride 100 ml @ 50 mls/hr UNSCH PRN IV 03/16/17 15:00 Magnesium Sulfate 2 gm/Sodium Chloride 100 ml @ 50 mls/hr UNSCH PRN IV 03/16/17 15:00 UNV Potassium Chloride 100 ml @ 50 mls/hr Q2H PRN IV 03/16/17 15:00 UNV Potassium Chloride 100 ml @ 50 mls/hr Q2H PRN IV 03/16/17 15:00 UNV Potassium Chloride 100 ml @ 50 mls/hr Q2H PRN IV 03/16/17 15:00 UNV Potassium Chloride 100 ml @ 25 mls/hr UNSCH PRN IV 03/16/17 15:00 UNV (K-Phos) 2,000 mg Q4H PRN PO 03/16/17 15:00 UNV (K-Phos) 2,000 mg UNSCH PRN PO/TUBE 03/16/17 15:00 UNV Potassium Phosphate 30 mmol/ Sodium Chloride 260 ml @ 42 mls/hr UNSCH PRN IV 03/16/17 15:00 UNV Sodium Phosphate 30 mmol/Sodium Chloride 250 ml @ 42 mls/hr UNSCH PRN IV 03/16/17 15:00 UNV (D50w (Vial) Inj) 25 ml UNSCH PRN IV PUSH 03/16/17 15:00 UNV (NovoLIN R SUPPLEMENTAL SCALE) 1 Q6HR SQ 03/16/17 18:00 UNV Aztreonam 1000 mg/ Sodium Chloride 100 ml @ 200 mls/hr Q8H IV 03/16/17 17:00 Family History unable to obtain Social History resides in nursing facility (Erin Kam) Physical Exam Vital Signs Vital Signs Date Time Temp Pulse Resp B/P (MAP) Pulse Ox O2 Delivery O2 Flow Rate FiO2 03/16/17 15:00 86 03/16/17 13:00 72 03/16/17 12:00 97.7 67 20 53/32 (39) 03/16/17 12:00 82 03/16/17 11:00 88 03/16/17 10:00 89 03/16/17 09:42 84/64 (71) 03/16/17 09:00 85 03/16/17 08:38 92 Nasal Cannula 4.00 03/16/17 08:00 97.7 91 14 89/51 (64) 03/16/17 07:00 88 03/16/17 05:00 98.1 98 18 125/78 (94) 94 03/16/17 04:19 03/16/17 03:35 106 19 118/62 (80) 97 Room Air 03/16/17 01:40 100.7 108 20 115/57 (76) 98 Room Air 03/16/17 00:59 106 19 98 Room Air 03/16/17 00:11 101.7 121 20 124/84 (97) 93 03/16/17 00:10 20 93 Room Air Physical Exam Young appearing female patient awake, alert/oriented x 3 S1/S2, RRR lungs clear abd soft, non tender extremities without edema; she has foot drop bilaterally mccarty in place, no sediment Laboratory Laboratory Tests Test 03/16/17 00:10 03/16/17 01:10 03/16/17 03:00 03/16/17 11:39 White Blood Count 6.0 22.4 Red Blood Count 4.21 3.62 Hemoglobin 12.5 10.7 Hematocrit 38.6 33.5 Mean Corpuscular Volume 91.7 92.5 Mean Corpuscular Hemoglobin 29.6 29.5 Mean Corpuscular Hemoglobin Concent 32.3 31.9 Red Cell Distribution Width 15.1 15.8 Platelet Count 208 204 Mean Platelet Volume 7.7 8.3 Neutrophils (%) (Auto) 94.2 91.5 Lymphocytes (%) (Auto) 3.9 2.9 Monocytes (%) (Auto) 0.7 5.5 Eosinophils (%) (Auto) 1.1 0.1 Basophils (%) (Auto) 0.1 0.0 Neutrophils # (Auto) 5.7 20.5 Lymphocytes # (Auto) 0.2 0.7 Monocytes # (Auto) 0.0 1.2 Eosinophils # (Auto) 0.1 0.0 Basophils # (Auto) 0.0 0.0 CBC Comment DIFF FINAL DIFF FINAL Differential Comment Blood Urea Nitrogen 48 52 Creatinine 2.47 2.53 Random Glucose 108 84 Total Protein 7.6 Albumin 3.2 Calcium Level 8.6 8.0 Alkaline Phosphatase 168 Aspartate Amino Transf (AST/SGOT) 52 Alanine Aminotransferase (ALT/SGPT) 48 Total Bilirubin 0.3 Sodium Level 137 139 Potassium Level 4.1 3.9 Chloride Level 100 105 Carbon Dioxide Level 24.0 22.9 Anion Gap 13 11 Estimat Glomerular Filtration Rate 19 18 Lactic Acid Level 3.9 2.4 Urine Color YELLOW Urine Turbidity CLOUDY Urine pH 7.5 Urine Specific [place] 1.013 Urine Protein 100 Urine Glucose (UA) NEG Urine Ketones NEG Urine Occult Blood MOD Urine Nitrite NEG Urine Bilirubin NEG Urine Urobilinogen LESS THAN 2.0 Urine Leukocyte Esterase LARGE Urine RBC 14 Urine WBC Urine WBC Clumps MANY Urine Squamous Epithelial Cells 1 Urine Transitional Epithelial Cells <1 Urine Renal Epithelial Cells <1 Urine Bacteria MANY Microscopic Urinalysis Comment CATH-CULTURE IND Date/Time Source Procedure Growth Status 03/16/17 00:30 Blood Peripheral Aerobic Blood Culture - Preliminary Gram Negative Jake Resulted 03/16/17 00:30 Anaerobic Blood Culture - Preliminary Gram Negative Jake Resulted 03/16/17 00:20 Nasal Washing Influenza Types A,B Antigen (TRUDI) - Final NEGATIVE FOR FLU A AND B ANTIGEN.... Complete 03/16/17 01:10 Urine Catheterized Urine Urine Culture Pending Received (Erin Kam) Result Diagram: 03/16/17 1139 03/16/17 1139 Imaging Last 72 hours Impressions Chest X-Ray 03/16/17 0009 Signed Impressions: Service Date/Time: February 00:41 - CONCLUSION: No acute disease. Keith Ahuja MD (Erin Kam) Assessment and Plan Problem List: (1) Acute renal failure ICD Codes: N17.9 - Acute kidney failure, unspecified Plan: No baseline labs for comparison WHIT likely due to septic shock (hypotension, decreased renal perfusion); may have progressed to ATN at this time her BP has improved continue IVF, use vasopressors if needed antibiotics as below to treat urosepsis monitor urine output, she is making some urine repeat labs in AM avoid nephrotoxins, she was given a dose of Ibuprofen (2) Severe sepsis ICD Codes: A41.9 - Sepsis, unspecified organism; R65.20 - Severe sepsis without septic shock Status: Acute Plan: BC + x 4, GNR, source UTI given levaquin and gentamicin, ordered aztreonam, vancomycin, ID to be consulted continue supportive care (Erin Kam) Assessment and Plan patient was seen and examined. Agree with above assessment and plan. WHIT due to sepsis, hypotension. Continue fluids and monitor. (Sloan Chau MD) Erin Kam Mar 16, 2017 16:34 Sloan Chau MD Mar 17, 2017 15:00
[2017-03-16] MEDS: AZTREONAM INJ 1,000 MG in SODIUM CHLORIDE 0.9% INJ 100 ML IV SCH (17:16)
[2017-03-16] MEDS: metroNIDAZOLE 500 MG INJ 100 ML IV SCH ×2 (17:52→22:12)
--- NOTE | 2017-03-16 17:56 | PD.ID.CON ---
History of Present Illness Service ID Consult Requested By Dr Villar Reason for Consult sepsis Primary Care Physician Janes Sibley MD Diagnoses: History of Present Illness 76 yo female with inability to walk 2/2 degerative joint disease , group home resident She has indwelling mccarty since September and she presents from her group home with fever and lethargy yday. She deterioraated this am, became obtunded, diffucult to arouse and her BP was noted to be in 60/40s She was transfereed to ICU, fluid resuscitated and her mccarty was changed Very abnorm,al UA with innumerable WBC Blood clx are 4/4 + bottles with GNR She is on broad spectruma bx (azactam, flagyl, levaquin, vancomycin) Pt wa fluid resuscitated and she is now fully awake and normotensive She has lactic acisodsis of 3.9 on presentation Review of Systems Constitutional: COMPLAINS OF: Fever, Chills Genitourinary: COMPLAINS OF: Urinary incontinence Musculoskeletal: COMPLAINS OF: Back pain Neurologic: COMPLAINS OF: Abnormal gait, Poor Balance Except as stated in HPI: all other systems reviewed are Neg Past Family Social History Allergies: Coded Allergies: cephalexin (Verified Allergy, Unknown, 03/16/17) erythromycin base (Verified Allergy, Unknown, 03/16/17) shellfish derived (Verified Allergy, Unknown, 03/16/17) Past Medical History Gerd Anemia HTN Urinary retention Depression Hypothyroid Past Surgical History Left hip repair Active Ordered Medications Medications where reviewed in EMR Antibiotics Include: azactam, flagyl, levaquine , vancomycin Family History reviewed non contributry Social History No Tobacco. No ETOH. No Illicit Drugs. Physical Exam Vital Signs Vital Signs Date Time Temp Pulse Resp B/P (MAP) Pulse Ox O2 Delivery O2 Flow Rate FiO2 03/16/17 16:49 100 Nasal Cannula 3.00 03/16/17 15:00 86 03/16/17 13:00 72 03/16/17 12:00 97.7 67 20 53/32 (39) 03/16/17 12:00 82 03/16/17 11:00 88 03/16/17 10:00 89 03/16/17 09:42 84/64 (71) 03/16/17 09:00 85 03/16/17 08:38 92 Nasal Cannula 4.00 03/16/17 08:00 97.7 91 14 89/51 (64) 03/16/17 07:00 88 03/16/17 05:00 98.1 98 18 125/78 (94) 94 03/16/17 04:19 03/16/17 03:35 106 19 118/62 (80) 97 Room Air 03/16/17 01:40 100.7 108 20 115/57 (76) 98 Room Air 03/16/17 00:59 106 19 98 Room Air 03/16/17 00:11 101.7 121 20 124/84 (97) 93 03/16/17 00:10 20 93 Room Air Physical Exam CONSTITUTIONAL/GENERAL: This is an adequately nourished patient, in no apparent distress. TUBES/LINES/DRAINS: SKIN: No jaundice, rashes, or lesions. Skin temperature appropriate. Not diaphoretic. HEAD: Atraumatic. Normocephalic. EYES: Pupils equal and round and reactive. Extraocular motions intact. No scleral icterus. No injection or drainage. Fundi not examined. ENT: Hearing grossly normal. Nose without bleeding or purulent drainage. Oral mucosae moist without visible erythema, exudates, masses, or lesions. NECK: Trachea midline. Supple, nontender. No palpable thyroid enlargement or nodularity. CARDIOVASCULAR: Regular rate and rhythm with harsh 1-2 /5 holosystolic murmur on the base, no gallops, or rubs. No JVD. Peripheral pulses symmetric. RESPIRATORY/CHEST: Symmetric, unlabored respirations. Clear to auscultation. Breath sounds equal bilaterally. No wheezes, rales, or rhonchi. GASTROINTESTINAL: Abdomen soft, quite tender, to palpation LLQ mildly distended. No hepato-splenomegaly, or palpable masses. No guarding. Bowel sounds present. GENITOURINARY: Without palpable bladder distension. Mccarty catheter in place with clear yellow urine MUSCULOSKELETAL: Extremities without clubbing, cyanosis, or edema. No joint tenderness or effusion noted. No calf tenderness. No mottling or clubbing. LYMPHATICS: No palpable cervical or supraclavicular adenopathy. NEUROLOGICAL: Awake and alert. Motor and sensory grossly within normal limits. Follows commands. Clear speech. Moves all extremities. PSYCHIATRIC: No obvious anxiety/depression. no apparent hallucinations or other psychotic thought process. Laboratory Laboratory Tests Test 03/16/17 00:10 03/16/17 01:10 03/16/17 03:00 03/16/17 11:39 White Blood Count 6.0 22.4 Red Blood Count 4.21 3.62 Hemoglobin 12.5 10.7 Hematocrit 38.6 33.5 Mean Corpuscular Volume 91.7 92.5 Mean Corpuscular Hemoglobin 29.6 29.5 Mean Corpuscular Hemoglobin Concent 32.3 31.9 Red Cell Distribution Width 15.1 15.8 Platelet Count 208 204 Mean Platelet Volume 7.7 8.3 Neutrophils (%) (Auto) 94.2 91.5 Lymphocytes (%) (Auto) 3.9 2.9 Monocytes (%) (Auto) 0.7 5.5 Eosinophils (%) (Auto) 1.1 0.1 Basophils (%) (Auto) 0.1 0.0 Neutrophils # (Auto) 5.7 20.5 Lymphocytes # (Auto) 0.2 0.7 Monocytes # (Auto) 0.0 1.2 Eosinophils # (Auto) 0.1 0.0 Basophils # (Auto) 0.0 0.0 CBC Comment DIFF FINAL DIFF FINAL Differential Comment Blood Urea Nitrogen 48 52 Creatinine 2.47 2.53 Random Glucose 108 84 Total Protein 7.6 Albumin 3.2 Calcium Level 8.6 8.0 Alkaline Phosphatase 168 Aspartate Amino Transf (AST/SGOT) 52 Alanine Aminotransferase (ALT/SGPT) 48 Total Bilirubin 0.3 Sodium Level 137 139 Potassium Level 4.1 3.9 Chloride Level 100 105 Carbon Dioxide Level 24.0 22.9 Anion Gap 13 11 Estimat Glomerular Filtration Rate 19 18 Lactic Acid Level 3.9 2.4 Urine Color YELLOW Urine Turbidity CLOUDY Urine pH 7.5 Urine Specific [place] 1.013 Urine Protein 100 Urine Glucose (UA) NEG Urine Ketones NEG Urine Occult Blood MOD Urine Nitrite NEG Urine Bilirubin NEG Urine Urobilinogen LESS THAN 2.0 Urine Leukocyte Esterase LARGE Urine RBC 14 Urine WBC Urine WBC Clumps MANY Urine Squamous Epithelial Cells 1 Urine Transitional Epithelial Cells <1 Urine Renal Epithelial Cells <1 Urine Bacteria MANY Microscopic Urinalysis Comment CATH-CULTURE IND Date/Time Source Procedure Growth Status 03/16/17 00:30 Blood Peripheral Aerobic Blood Culture - Preliminary Gram Negative Jake Resulted 03/16/17 00:30 Anaerobic Blood Culture - Preliminary Gram Negative Jake Resulted 03/16/17 00:20 Nasal Washing Influenza Types A,B Antigen (TRUDI) - Final NEGATIVE FOR FLU A AND B ANTIGEN.... Complete 03/16/17 01:10 Urine Catheterized Urine Urine Culture Pending Received Result Diagram: 03/16/17 1139 03/16/17 1139 Imaging Last Impressions Chest X-Ray 03/16/17 0009 Signed Impressions: Service Date/Time: , March 16, 2017 00:41 - CONCLUSION: No acute disease. Keith Ahuja MD Assessment and Plan Assessment and Plan Sepsis, Klebsiella vs GI - WBC> 20K, temp 101.7, lactic acidosis LLQ pain Hypotension 2/2 sepsis Leukocytosis 2/2 sepsis ARF -cont azactam, levaquin - cont flagyl for now ' - dc vancomycin - CT A/P (abd pain) Discussed Condition With Dr Jian De La Fuente,Anna Patel MD Mar 16, 2017 17:56
[2017-03-16] MEDS: INSULIN NovoLIN REGULAR SUPPLEMENTAL SCALE SQ SCH ×2 (18:00→23:52)
[2017-03-16] MEDS ORDERED: DIATRIZOATE MEGLUM/DIATRIZOATE SOD 9 ML CUP PO ONE (19:30)
[2017-03-16 20:58] LABS: BACTERIA, URINE MANY /hpf; BLOOD, URINE SMALL (NEG); GLUCOSE,URINE NEG (NEG); KETONE, URINE NEG (NEG); NITRITE,URINE NEG (NEG); URINE COLOR LIGHT-YELLOW (YELLW/STRAW)
[2017-03-16 20:59] LABS: COMMENT (UR) CATH-CULTURE IND; CULTURE IF INDICATED CATH CULTURE IND
[2017-03-16] MEDS ORDERED: CHLORHEXIDINE GLUCONATE 2 % 1 PACK (2 CLOTHS)(extra cloths) TOPICAL PRN (21:15)
[2017-03-16] MEDS: ACETAMINOPHEN/HYDROcodone 325 MG/10 MG TAB PO PRN (22:13)
--- NOTE | 2017-03-16 22:15 | RADRPT ---
EXAM DATE/TIME: 03/16/2017 20:38 [facility] COMPARISON: No previous studies available for comparison. INDICATIONS : Patient complains of left lower quadrant pain. ORAL CONTRAST: Prescribed oral contrast ingested. RADIATION DOSE: 14.40 CTDIvol (mGy) MEDICAL HISTORY : Renal calculi. Hypertension. Hyperthyroidism. SURGICAL HISTORY : None. ENCOUNTER: Initial ACUITY: 1 day PAIN SCALE: 3/10 LOCATION: Left lower quadrant TECHNIQUE: Volumetric scanning of the abdomen and pelvis was performed. Using automated exposure control and adjustment of the mA and/or kV according to patient size, radiation dose was kept as low as reasonably achievable to obtain optimal diagnostic quality images. DICOM format image data is av ailable electronically for review and comparison. FINDINGS: There are calcifications in the central collecting systems of the kidneys bilaterally. There is atrophy of the right kidney. The calcifications on the right side do extend into the renal pelvis. Significant dilatation of the right collecting system is not seen. There is some fullness of the left collecting system and left proximal ureter. There are two stones seen at the left upper ureter/UPJ region, the larger more distal stone measures 1 cm in diameter. The smaller more proximal stone measures 3 mm in diameter. A more distal ureteral stone is not seen. The right kidney has a s taghorn type of appearance. The right kidney demonstrates generalized atrophy measuring approximatel y 5 cm in length. The spleen, liver, and adrenal glands are normal. There is generalized atrophy of the pancreas. Ath erosclerotic calcifications are seen throughout the arterial system. No aneurysm is seen. There is a moderate amount of stool seen throughout the colon. There are colonic diverticula particu larly in the sigmoid region. Significant inflammatory change is not clearly seen. There is a small am ount of fluid in the left paracolic gutter region. The small bowel appears mildly distended measurin g up to 3.5 cm. A transition point to suggest obstruction is not clearly seen. There is a 1.5 cm area of calcification seen at the left side of the uterus likely related to a calci fied leiomyoma. A Nagy catheter is seen in the urinary bladder. The urinary bladder is decompresse d. There is degenerative change in the lumbar spine. There is chronic change at the proximal femurs chris aterally with fracturing and remodeling of the femoral heads and remodeling of the acetabular region. This is a longstanding issue. There is an area of consolidation seen at the left lower lobe. There is some atelectasis seen at the lung bases bilaterally. CONCLUSION: 1. Numerous calcifications seen in the kidneys bilaterally. On the left side there are calcification s seen at the left UPJ/proximal ureter concerning for some obstruction at the left collecting system. 2. Generalized atrophy at the right kidney with a prominent staghorn calculus seen at the right renal collecting system. 3. A moderate amount of stool seen throughout the colon. There are colonic diverticula. 4. Mild distension of much of the small bowel measuring up to 3.5 cm. This is nonspecific. 5. Normal free fluid in the left paracolic gutter region. The cause of this is not clearly identifie d. 6. Chronic change at the proximal femur and hip regions bilaterally. This is a longstanding issue. 7. Left lower lobe consolidation/pneumonia. Remberto Ashford MD on March 16, 2017 at 21:46 Board Certified Radiologist. This report was verified electronically.
[2017-03-17] VITALS (31 sets, daily range): BP systolic 84–165; BP diastolic 50–76; PULSE 83–105; RESP 14–30; TEMP 98.1–99.7; O2SAT 91–98
[2017-03-17] MEDS: AZTREONAM INJ 1,000 MG in SODIUM CHLORIDE 0.9% INJ 100 ML IV SCH ×3 (00:39→16:58)
[2017-03-17] MEDS: CHLORHEXIDINE GLUCONATE 2 % 1 PACK (2 CLOTHS)(taper/protocol) TOPICAL SCH (00:39)
[2017-03-17] MEDS ORDERED: SODIUM CHLOR 0.9% 1000 ML INJ 1,000 ML IV ONE ×2 (01:15)
[2017-03-17] MEDS ORDERED: NOREPINEPHRINE-DEXTROSE DRIP 250 ML IV PRN (02:30)
[2017-03-17] MEDS ORDERED: HYDROmorphone HCL PF 1 MG/ML VIAL IV PUSH ONE (02:30)
[2017-03-17] MEDS ORDERED: TERBUTALINE INJ 1 MG/ML AMP SQ PRN (02:30)
--- NOTE | 2017-03-17 03:07 | RADRPT ---
EXAM DATE/TIME: 03/17/2017 02:24 [facility] COMPARISON: CHEST SINGLE AP, March 16, 2017, 0:41. INDICATIONS : Central line placement MEDICAL HISTORY : None. SURGICAL HISTORY : None. ENCOUNTER: Subsequent ACUITY: 1 day PAIN SCORE: Non-responsive. LOCATION: Bilateral chest FINDINGS: Portable AP view of the chest demonstrates a normal-sized cardiac silhouette. Left IJ central line di stal tip is in the SVC near the cavoatrial junction. No pneumothorax is identified. There is atelecta sis at the left lung base. CONCLUSION: Left IJ central line distal tip in the SVC. No pneumothorax is visualized. Remberto Cooper MD on March 17, 2017 at 3:04 Board Certified Radiologist. This report was verified electronically.
[2017-03-17] MEDS: RESP: IPRATROPIUM 0.5 MG/2.5 ML NEB NEB SCH ×4 (03:45→21:00)
[2017-03-17 04:08] LABS: AUTOMATED NEUTROPHIL # 14.7 TH/MM3 (1.8-7.7); BASOPHIL % 0.2 % (0.0-2.0); EOSINOPHIL # 0.2 TH/MM3 (0-0.4); EOSINOPHIL % 1.3 % (0.0-4.0); HEMATOCRIT 26.1 % (35.0-46.0); HEMO FLAGS DIFF FINAL; LYMPH % 4.6 % (9.0-44.0); LYMPHOCYTE # 0.8 TH/MM3 (1.0-4.8); MEAN CELL VOLUME 92.7 FL (80.0-100.0); MEAN CORPUSCULAR HEMOGLOBIN 30.2 PG (27.0-34.0); MEAN CORPUSCULAR HGB CONC 32.5 % (32.0-36.0); NEUT % 89.9 % (16.0-70.0); PLATELET COUNT 138 TH/MM3 (150-450); RED BLOOD COUNT 2.82 MIL/MM3 (4.00-5.30); RED CELL DISTRIBUTION WIDTH 15.5 % (11.6-17.2); WHITE BLOOD COUNT 16.3 TH/MM3 (4.0-11.0)
--- NOTE | 2017-03-17 04:14 | PD.PROCEDR ---
Procedure Note Procedure Central line placement A time-out was completed verifying correct patient, procedure, site, positioning , and special equipment if applicable. The patient was placed in a dependent position appropriate for central line placement based on the vein to be cannulated. The patients right neck was prepped and draped in sterile fashion. 1% Lidocaine was used to anesthetize the surrounding skin area. A triple lumen 9 -M[place] Cordis catheter was introduced into the the internal jugular vein using the Seldinger technique and under ultrasound guidance. The catheter was threaded smoothly over the guide wire and appropriate blood return was obtained. Each lumen of the catheter was evacuated of air and flushed with sterile saline. The catheter was then sutured in place to the skin and a sterile dressing applied. Perfusion to the extremity distal to the point of catheter insertion was checked and found to be adequate. Estimated Blood Loss: 1ml The patient tolerated the procedure well and there were no complications. Regan Galvez MD Mar 17, 2017 4:14 am
[2017-03-17 04:42] LABS: BICARBONATE 22.3 MEQ/L (21.0-32.0); POTASSIUM 4.1 MEQ/L (3.5-5.1)
[2017-03-17] MEDS: metroNIDAZOLE 500 MG INJ 100 ML IV SCH ×4 (05:17→21:59)
[2017-03-17] MEDS: HEPARIN SODIUM - SQ 10,000 UNITS/ML VIAL SQ SCH ×3 (05:17→21:57)
[2017-03-17] MEDS: INSULIN NovoLIN REGULAR SUPPLEMENTAL SCALE SQ SCH ×3 (05:18→17:01)
--- NOTE | 2017-03-17 07:33 | HHI.CCPN ---
Subjective Remarks/Hospital Course This is a 76-year-old female with a history of urinary retention with chronic Nagy catheter who was brought in on 03/15 from her long term facility with fever. She was per report lethargic in the emergency department. She was admitted to the hospital with a presumptive diagnosis of catheter associated urinary tract infection from her outside facility. In the emergency department she was given a dose of Zosyn IV, gentamicin IV, vancomycin IV. She was admitted in the hospitalist team placed her on vancomycin and Levaquin. Despite optimal therapy, she continued to be altered and became more hypotensive throughout the morning. She was rapid response for persistent hypotension and transferred to the intensive care unit for closer monitoring and management of her now presumed septic shock. Critical care medicine is consulted to evaluate and manage her shock as well as her multiorgan dysfunction including acute kidney injury and metabolic encephalopathy. Unfortunately, the patient is to encephalopathic to answer questions and no additional history can be obtained from the patient. 03/17 Patient is lying in bed in NAD. Afebrile. Objective Vital Signs Date Time Temp Pulse Resp B/P (MAP) Pulse Ox O2 Delivery O2 Flow Rate FiO2 03/17/17 06:00 91 03/17/17 04:00 98.4 21 90/53 (65) 95 03/17/17 01:02 Venturi Mask 6.00 35 Intake and Output 03/17/17 03/17/17 03/18/17 08:00 16:00 00:00 Intake Total 3329 ml Output Total 2000 ml Balance 1329 ml Result Diagram: 03/17/17 0350 03/17/17 0350 Other Results Laboratory Tests Test 03/16/17 11:39 03/16/17 14:15 03/16/17 14:30 03/17/17 03:50 White Blood Count 22.4 TH/MM3 16.3 TH/MM3 Red Blood Count 3.62 MIL/MM3 2.82 MIL/MM3 Hemoglobin 10.7 GM/DL 8.5 GM/DL Hematocrit 33.5 % 26.1 % Mean Corpuscular Volume 92.5 FL 92.7 FL Mean Corpuscular Hemoglobin 29.5 PG 30.2 PG Mean Corpuscular Hemoglobin Concent 31.9 % 32.5 % Red Cell Distribution Width 15.8 % 15.5 % Platelet Count 204 TH/MM3 138 TH/MM3 Mean Platelet Volume 8.3 FL 8.3 FL Neutrophils (%) (Auto) 91.5 % 89.9 % Lymphocytes (%) (Auto) 2.9 % 4.6 % Monocytes (%) (Auto) 5.5 % 4.0 % Eosinophils (%) (Auto) 0.1 % 1.3 % Basophils (%) (Auto) 0.0 % 0.2 % Neutrophils # (Auto) 20.5 TH/MM3 14.7 TH/MM3 Lymphocytes # (Auto) 0.7 TH/MM3 0.8 TH/MM3 Monocytes # (Auto) 1.2 TH/MM3 0.7 TH/MM3 Eosinophils # (Auto) 0.0 TH/MM3 0.2 TH/MM3 Basophils # (Auto) 0.0 TH/MM3 0.0 TH/MM3 CBC Comment DIFF FINAL DIFF FINAL Differential Comment Blood Urea Nitrogen 52 MG/DL 49 MG/DL Creatinine 2.53 MG/DL 2.13 MG/DL Random Glucose 84 MG/DL 91 MG/DL Calcium Level 8.0 MG/DL 7.2 MG/DL Sodium Level 139 MEQ/L 140 MEQ/L Potassium Level 3.9 MEQ/L 4.1 MEQ/L Chloride Level 105 MEQ/L 110 MEQ/L Carbon Dioxide Level 22.9 MEQ/L 22.3 MEQ/L Anion Gap 11 MEQ/L 8 MEQ/L Estimat Glomerular Filtration Rate 18 ML/MIN 23 ML/MIN Nasal Screen MRSA (PCR) MRSA NOT DETECTED Urine Color LIGHT-YELLOW Urine Turbidity HAZY Urine pH 6.0 Urine Specific [place] 1.007 Urine Protein TRACE mg/dL Urine Glucose (UA) NEG mg/dL Urine Ketones NEG mg/dL Urine Occult Blood SMALL Urine Nitrite NEG Urine Bilirubin NEG Urine Urobilinogen LESS THAN 2.0 MG/DL Urine Leukocyte Esterase LARGE Urine RBC 6 /hpf Urine WBC 63 /hpf Urine Amorphous Sediment RARE Urine Bacteria MANY /hpf Microscopic Urinalysis Comment CATH-CULTURE IND Total Protein 5.6 GM/DL Protein Corrected Calcium 8.0 MG/DL Imaging Last Impressions Chest X-Ray 03/17/17 0000 Signed Impressions: Service Date/Time: Friday, March 17, 2017 02:24 - CONCLUSION: Left IJ central line distal tip in the SVC. No pneumothorax is visualized. Remberto Cooper MD Abdomen/Pelvis CT 03/16/17 0000 Signed Impressions: Service Date/Time: February 20:38 - CONCLUSION: 1. Numerous calcifications seen in the kidneys bilaterally. On the left side there are calcifications seen at the left UPJ/proximal ureter concerning for some obstruction at the left collecting system. 2. Generalized atrophy at the right kidney with a prominent staghorn calculus seen at the right renal collecting system. 3. A moderate amount of stool seen throughout the colon. There are colonic diverticula. 4. Mild distension of much of the small bowel measuring up to 3.5 cm. This is nonspecific. 5. Normal free fluid in the left paracolic gutter region. The cause of this is not clearly identified. 6. Chronic change at the proximal femur and hip regions bilaterally. This is a longstanding issue. 7. Left lower lobe consolidation/pneumonia. Remberto Ashford MD Objective Remarks GENERAL: Patient is lying in bed in NAD SKIN: Warm and dry. HEAD: Normocephalic. EYES: No scleral icterus. No injection or drainage. NECK: Supple, trachea midline. No JVD or lymphadenopathy. CARDIOVASCULAR: Regular rate and rhythm without murmurs, gallops, or rubs. RESPIRATORY: Breath sounds equal bilaterally. No accessory muscle use. GASTROINTESTINAL: Abdomen soft, non-tender, nondistended. MUSCULOSKELETAL: No cyanosis, or edema. Neuro: Awake and alert Procedures None A/P Assessment and Plan 1)Resp Insuff 2)Gram negative bacteremia 3)UTI 4)Leucocytosis 5)Metabolic encephalopathy..improved 6)Acute kidney injury 7)Lactic acidosis 8)Acute protein calorie malnutrition- moderate 9)Hyperglycemia of critical illness 10)Calcifications left UPJ/ureter Neuro: Awake and alert Pulm: Continue with oxygen keep sat >92% Bronchodilators CV: Monitor HR and BP keep MAP>65mmHg Serial lactic acid monitoring, continue with IVF NS@100ml/hr, Given 4L crystalloids : Monitor renal function, I/O's, avoid nephrotoxins Cr: 2.1 today from 2.53, UOP: 2360ml. Urology eval Renal is following, continue with NS@100ml/hr GI: On PO diet ID: Continue with abx ( Aztreonam, Levaquin, Flagyl) Monitor for signs of infections ( Fever, WBC) WBC is trending down BC 03/16 GCP 4 bottles, check BC x sets today, follow up on urine cx. ID is following Heme: Monitor CBC, on FESO4 325 mg daily Endo: SSI with accuchecks GI/DVT prophylaxis - on Protonix and Heparin SQ respectively Lines: Left IJ CVP placed 03/17 Level 3 Mike Mae MD Mar 17, 2017 07:33
[2017-03-17] MEDS: DOCUSATE SODIUM 100 MG CAP PO SCH ×3 (07:54→16:15)
[2017-03-17] MEDS: FERROUS SULFATE 325 MG (65 MG ELEMENTAL IRON) TAB PO SCH (07:54)
[2017-03-17] MEDS: SODIUM CHLORIDE 0.9% FLUSH 10 ML FLUSH IV FLUSH SCH (07:55)
[2017-03-17] MEDS: PANTOPRAZOLE SOD 40 MG DELAYED RELEASE TAB PO SCH (07:55)
[2017-03-17] MEDS: ACETAMINOPHEN/HYDROcodone 325 MG/10 MG TAB PO PRN ×2 (07:59→17:38)
[2017-03-17 08:17] LABS: AUTOMATED NEUTROPHIL # 13.7 TH/MM3 (1.8-7.7); BASOPHIL % 0.3 % (0.0-2.0); EOSINOPHIL # 0.3 TH/MM3 (0-0.4); HEMATOCRIT 26.8 % (35.0-46.0); HEMO FLAGS DIFF FINAL; LYMPH % 4.1 % (9.0-44.0); LYMPHOCYTE # 0.6 TH/MM3 (1.0-4.8); MEAN CELL VOLUME 92.6 FL (80.0-100.0); MEAN CORPUSCULAR HEMOGLOBIN 30.1 PG (27.0-34.0); MEAN CORPUSCULAR HGB CONC 32.5 % (32.0-36.0); NEUT % 89.6 % (16.0-70.0); PLATELET COUNT 147 TH/MM3 (150-450); RED BLOOD COUNT 2.89 MIL/MM3 (4.00-5.30); RED CELL DISTRIBUTION WIDTH 15.8 % (11.6-17.2); WHITE BLOOD COUNT 15.3 TH/MM3 (4.0-11.0)
[2017-03-17] MEDS: LEVOFLOXACIN 750 MG PREMIX INJ 150 ML IV SCH (08:28)
--- NOTE | 2017-03-17 10:01 | PD.CONS ---
HPI Service Urology Consult Requested By Reason for Consult Obstructing left ureteral calculi Primary Care Physician Janes Sibley MD Diagnosis: (1) Severe sepsis ICD Code: A41.9 - Sepsis, unspecified organism; R65.20 - Severe sepsis without septic shock (2) Bronchitis ICD Code: J40 - Bronchitis, not specified as acute or chronic (3) UTI (urinary tract infection) ICD Code: N39.0 - Urinary tract infection, site not specified (4) Urinary retention ICD Code: R33.9 - Retention of urine, unspecified History of Present Illness 76-year-old female with history chronic urinary retention managed with indwelling Nagy who was transferred from her halfway facility to the emergency room for fever and altered mental status. During the course of patient's workup a CT scan of the abdomen and pelvis was performed that demonstrated left hydronephrosis secondary to obstructing left proximal ureteral calculi measuring 10 mm and 3 mm respectively. Also noted were multiple left renal calculi and an atrophic right kidney containing a staghorn calculus. At the time of consultation, the patient was more coherent and she described pain involving the left midabdomen. She denies a history of any right sided flank pain. She denies a history of prior knowledge of renal calculi in the past. She denies knowledge of having a shrunken atrophic right kidney. Review of Systems ROS Limitations: Altered Mental Status Except as stated in HPI: all other systems reviewed are Neg Past Family Social History Past Medical History Hypertension Anemia GERD Hypothyroidism Chronic urinary retention Depression Past Surgical History Status post left hip repair Reported Medications Refer to EMR Allergies: Coded Allergies: cephalexin (Verified Allergy, Unknown, 03/16/17) erythromycin base (Verified Allergy, Unknown, 03/16/17) shellfish derived (Verified Allergy, Unknown, 03/16/17) Active Ordered Medications Refer to EMR Family History Family history is unknown Social History No history tobacco, alcohol or illicit drug use Physical Exam Vital Signs Date Time Temp Pulse Resp B/P (MAP) Pulse Ox O2 Delivery O2 Flow Rate FiO2 03/17/17 07:34 96 Nasal Cannula 1.00 03/17/17 06:00 91 03/17/17 04:00 86 03/17/17 04:00 98.4 86 21 90/53 (65) 95 03/17/17 02:00 91 03/17/17 01:02 96 Venturi Mask 6.00 35 03/17/17 00:00 83 03/17/17 00:00 98.1 83 18 84/50 (61) 98 03/16/17 22:47 96 Nasal Cannula 2.00 03/16/17 22:00 91 03/16/17 20:00 98.5 86 19 125/85 (98) 97 03/16/17 20:00 85 03/16/17 19:00 90 03/16/17 18:00 79 03/16/17 17:00 80 03/16/17 16:49 100 Nasal Cannula 3.00 03/16/17 16:00 83 03/16/17 16:00 98.5 83 15 117/57 (77) 99 03/16/17 15:00 86 03/16/17 13:00 72 03/16/17 12:00 97.7 67 20 53/32 (39) 03/16/17 12:00 82 03/16/17 11:00 88 Physical Exam GENERAL: This is a well-nourished, well-developed patient, in no apparent distress. SKIN: No rashes, ecchymoses or lesions. Cool and dry. HEAD: Atraumatic. Normocephalic. No temporal or scalp tenderness. EYES: Pupils equal round and reactive. Extraocular motions intact. No scleral icterus. No injection or drainage. ENT: Nose without bleeding, purulent drainage or septal hematoma. Throat without erythema, tonsillar hypertrophy or exudate. Uvula midline. Airway patent. NECK: Trachea midline. No JVD or lymphadenopathy. Supple, nontender, no meningeal signs. GASTROINTESTINAL: Abdomen soft, non-tender, nondistended. No hepato-splenomegaly , or palpable masses. No guarding. GENITOURINARY: No CVA tenderness. Indwelling Nagy draining cloudy yellow urine. MUSCULOSKELETAL: Extremities without clubbing, cyanosis, or edema. No joint tenderness, effusion, or edema noted. No calf tenderness. Negative Homans sign bilaterally. NEUROLOGICAL: Awake and alert. Cranial nerves II through XII intact. Motor and sensory grossly within normal limits. Five out of 5 muscle strength in all muscle groups. Normal speech. Lab results reviewed: Yes Laboratory Tests Test 03/16/17 11:39 03/16/17 14:15 03/16/17 14:30 03/17/17 03:50 White Blood Count 22.4 16.3 Red Blood Count 3.62 2.82 Hemoglobin 10.7 8.5 Hematocrit 33.5 26.1 Mean Corpuscular Volume 92.5 92.7 Mean Corpuscular Hemoglobin 29.5 30.2 Mean Corpuscular Hemoglobin Concent 31.9 32.5 Red Cell Distribution Width 15.8 15.5 Platelet Count 204 138 Mean Platelet Volume 8.3 8.3 Neutrophils (%) (Auto) 91.5 89.9 Lymphocytes (%) (Auto) 2.9 4.6 Monocytes (%) (Auto) 5.5 4.0 Eosinophils (%) (Auto) 0.1 1.3 Basophils (%) (Auto) 0.0 0.2 Neutrophils # (Auto) 20.5 14.7 Lymphocytes # (Auto) 0.7 0.8 Monocytes # (Auto) 1.2 0.7 Eosinophils # (Auto) 0.0 0.2 Basophils # (Auto) 0.0 0.0 CBC Comment DIFF FINAL DIFF FINAL Differential Comment Blood Urea Nitrogen 52 49 Creatinine 2.53 2.13 Random Glucose 84 91 Calcium Level 8.0 7.2 Sodium Level 139 140 Potassium Level 3.9 4.1 Chloride Level 105 110 Carbon Dioxide Level 22.9 22.3 Anion Gap 11 8 Estimat Glomerular Filtration Rate 18 23 Nasal Screen MRSA (PCR) MRSA NOT DETECTED Urine Color LIGHT-YELLOW Urine Turbidity HAZY Urine pH 6.0 Urine Specific [place] 1.007 Urine Protein TRACE Urine Glucose (UA) NEG Urine Ketones NEG Urine Occult Blood SMALL Urine Nitrite NEG Urine Bilirubin NEG Urine Urobilinogen LESS THAN 2.0 Urine Leukocyte Esterase LARGE Urine RBC 6 Urine WBC 63 Urine Amorphous Sediment RARE Urine Bacteria MANY Microscopic Urinalysis Comment CATH-CULTURE IND Total Protein 5.6 Protein Corrected Calcium 8.0 Test 03/17/17 07:51 White Blood Count 15.3 Red Blood Count 2.89 Hemoglobin 8.7 Hematocrit 26.8 Mean Corpuscular Volume 92.6 Mean Corpuscular Hemoglobin 30.1 Mean Corpuscular Hemoglobin Concent 32.5 Red Cell Distribution Width 15.8 Platelet Count 147 Mean Platelet Volume 7.9 Neutrophils (%) (Auto) 89.6 Lymphocytes (%) (Auto) 4.1 Monocytes (%) (Auto) 4.0 Eosinophils (%) (Auto) 2.0 Basophils (%) (Auto) 0.3 Neutrophils # (Auto) 13.7 Lymphocytes # (Auto) 0.6 Monocytes # (Auto) 0.6 Eosinophils # (Auto) 0.3 Basophils # (Auto) 0.0 CBC Comment DIFF FINAL Differential Comment Lactic Acid Level 0.7 Date/Time Source Procedure Growth Status 03/16/17 00:30 Blood Peripheral Aerobic Blood Culture - Preliminary Gram Negative Jake Resulted 03/16/17 00:30 Anaerobic Blood Culture - Preliminary Gram Negative Jake Resulted 03/16/17 00:20 Nasal Washing Influenza Types A,B Antigen (TRUDI) - Final NEGATIVE FOR FLU A AND B ANTIGEN.... Complete 03/16/17 14:30 Urine Catheterized Urine Urine Culture Pending Received Result Diagram: 03/17/17 0751 03/17/17 0350 Personally reviewed images: Yes Imaging Last Impressions Chest X-Ray 03/17/17 0000 Signed Impressions: Service Date/Time: Friday, March 17, 2017 02:24 - CONCLUSION: Left IJ central line distal tip in the SVC. No pneumothorax is visualized. Remberto Cooper MD Abdomen/Pelvis CT 03/16/17 0000 Signed Impressions: Service Date/Time: February 20:38 - CONCLUSION: 1. Numerous calcifications seen in the kidneys bilaterally. On the left side there are calcifications seen at the left UPJ/proximal ureter concerning for some obstruction at the left collecting system. 2. Generalized atrophy at the right kidney with a prominent staghorn calculus seen at the right renal collecting system. 3. A moderate amount of stool seen throughout the colon. There are colonic diverticula. 4. Mild distension of much of the small bowel measuring up to 3.5 cm. This is nonspecific. 5. Normal free fluid in the left paracolic gutter region. The cause of this is not clearly identified. 6. Chronic change at the proximal femur and hip regions bilaterally. This is a longstanding issue. 7. Left lower lobe consolidation/pneumonia. Remberto Ashford MD Assessment and Plan Assessment and Plan Urologic impression: #1 obstructing left proximal ureteral calculi causing left hydronephrosis #2 multiple left renal calculi #3 atrophic right kidney containing staghorn calculus #4 recent development of ordered mental status related to urosepsis secondary to left sided obstructive uropathy Plan: #[address] patient on nothing by mouth except meds #2 tentatively scheduled for cystoscopy with left manager application development stent placement later today #3 will eventually require outpatient shockwave lithotripsy of the multiple left sided calculi #4 will manage atrophic right kidney containing staghorn calculus conservatively Problem Qualifiers (1) UTI (urinary tract infection): Qualified Codes: T83.511A - Infection and inflammatory reaction due to indwelling urethral catheter, initial encounter; N39.0 - Urinary tract infection , site not specified Christiano Marquez MD Mar 17, 2017 10:01
[2017-03-17] MEDS: SODIUM CHLOR 0.9% 1000 ML INJ 1,000 ML IV SCH (10:30)
--- NOTE | 2017-03-17 10:34 | HHI.NPPN ---
Subjective Renal Failure: Chronic, Acute Interval History Awake, alert. Did not sleep much last night. Renal function is better. Imaging shows obstructing caliculi on left. She has been evaluated by urology and due for cystoscopy today. (Erin Kam) Review of Systems General Constitutional: Fatigue (Erin Kam) Objective Data Data Vital Signs Date Time Temp Pulse Resp B/P (MAP) Pulse Ox O2 Delivery O2 Flow Rate FiO2 03/17/17 07:34 96 Nasal Cannula 1.00 03/17/17 06:00 91 03/17/17 04:00 86 03/17/17 04:00 98.4 86 21 90/53 (65) 95 03/17/17 02:00 91 03/17/17 01:02 96 Venturi Mask 6.00 35 03/17/17 00:00 83 03/17/17 00:00 98.1 83 18 84/50 (61) 98 03/16/17 22:47 96 Nasal Cannula 2.00 03/16/17 22:00 91 03/16/17 20:00 98.5 86 19 125/85 (98) 97 03/16/17 20:00 85 03/16/17 19:00 90 03/16/17 18:00 79 03/16/17 17:00 80 03/16/17 16:49 100 Nasal Cannula 3.00 03/16/17 16:00 83 03/16/17 16:00 98.5 83 15 117/57 (77) 99 03/16/17 15:00 86 03/16/17 13:00 72 03/16/17 12:00 97.7 67 20 53/32 (39) 03/16/17 12:00 82 03/16/17 11:00 88 (Erin Kam) -: 03/17/17 0751 03/17/17 0350 Microbiology 03/16/17 Urine Culture, Received Pending Imaging Last 72 hours Impressions Chest X-Ray 03/17/17 0000 Signed Impressions: Service Date/Time: Friday, March 17, 2017 02:24 - CONCLUSION: Left IJ central line distal tip in the SVC. No pneumothorax is visualized. Remberto Cooper MD Chest X-Ray 03/16/17 0009 Signed Impressions: Service Date/Time: February 00:41 - CONCLUSION: No acute disease. Keith Ahuja MD Abdomen/Pelvis CT 03/16/17 0000 Signed Impressions: Service Date/Time: February 20:38 - CONCLUSION: 1. Numerous calcifications seen in the kidneys bilaterally. On the left side there are calcifications seen at the left UPJ/proximal ureter concerning for some obstruction at the left collecting system. 2. Generalized atrophy at the right kidney with a prominent staghorn calculus seen at the right renal collecting system. 3. A moderate amount of stool seen throughout the colon. There are colonic diverticula. 4. Mild distension of much of the small bowel measuring up to 3.5 cm. This is nonspecific. 5. Normal free fluid in the left paracolic gutter region. The cause of this is not clearly identified. 6. Chronic change at the proximal femur and hip regions bilaterally. This is a longstanding issue. 7. Left lower lobe consolidation/pneumonia. Remberto Ashford MD Tubes & Lines: Nagy Tubes & Lines Comment TLC left IJ (Negin,Erin B. DRYWALL INSTALLER) Physical Exam General Appearance: Well Developed, Well Nourished, No Acute Distress, Comfortable (NeginErin B. DRYWALL INSTALLER) Eyes Eye Exam: Pupils Equal (NeginErin B. DRYWALL INSTALLER) Throat Throat Exam: Oral Mucosa Annabella & Moist (NeginErin B. DRYWALL INSTALLER) Pulmonary Resp Exam: Clear Bilaterally, Breath Sounds Equal (NeginErin B. DRYWALL INSTALLER) Cardiology CV Exam: Regular, Normal Sinus Rhythm (NeginErin B. DRYWALL INSTALLER) Gastrointestinal/Abdomen GI Exam: Soft, Non-Tender (NeginErin B. DRYWALL INSTALLER) Genitourinary Exam: Clear Urine (NeginErin B. DRYWALL INSTALLER) Musculoskeletal MS Exam: Joints Intact, Atrophy, Unable to Ambulate MS Remarks foot drop bilaterally (NeginErin B. DRYWALL INSTALLER) Integumentary Skin Exam: Clear, Warm, Dry, Intact (NeginErin B. DRYWALL INSTALLER) Extremeties Extremities Exam: No Edema, Pedal Pulses Palpable (NeginErin B. DRYWALL INSTALLER) Neurologic Neuro Exam: Alert, Awake, Oriented, Speech Clear, Moving All Extremities (Erin Kam) Psychiatric Psych Exam: Appropriate Responses (Erin Kam) Assessment/Plan Discussed Condition With: Patient Assessment Summary: WHIT/Acute Renal Failure Problem List: (1) Acute renal failure ICD Codes: N17.9 - Acute kidney failure, unspecified Plan: No baseline labs for comparison WHIT likely due to septic shock (hypotension, decreased renal perfusion); may have progressed to ATN she also has left side occluding renal stones; urology has evaluated and due for cystoscopy today at this time her BP has improved without pressor support continue IVF, NS @ 100 cc/hr oral intake encouraged antibiotics as below to treat urosepsis monitor urine output, she is non oliguric daily renal panel avoid nephrotoxins, she was given a dose of Ibuprofen (2) Severe sepsis ICD Codes: A41.9 - Sepsis, unspecified organism; R65.20 - Severe sepsis without septic shock Status: Acute Plan: BC + x 4, GNR, source UTI ([place]) has been evaluated by ID on Flagyl, Azactam, Levaquin ; given gentamicin, and vancomycin but they were not continued continue supportive care (Erin Kam) Problem List: (1) Acute renal failure ICD Codes: N17.9 - Acute kidney failure, unspecified Plan: No baseline labs for comparison WHIT likely due to septic shock (hypotension, decreased renal perfusion); may have progressed to ATN she also has left side occluding renal stones; urology has evaluated and due for cystoscopy today at this time her BP has improved without pressor support continue IVF, NS @ 100 cc/hr oral intake encouraged antibiotics as below to treat urosepsis monitor urine output, she is non oliguric daily renal panel avoid nephrotoxins, she was given a dose of Ibuprofen (2) Severe sepsis ICD Codes: A41.9 - Sepsis, unspecified organism; R65.20 - Severe sepsis without septic shock Status: Acute Plan: BC + x 4, GNR, source UTI ([place]) has been evaluated by ID on Flagyl, Azactam, Levaquin ; given gentamicin, and vancomycin but they were not continued continue supportive care Plan patient was seen and examined. Agree with above assessment and plan. WHIT due to sepsis, hypotension as well as obstruction from stone. (left side). Has a staghorn calculus on the right. (Sloan Chau MD) Erin Kam Mar 17, 2017 10:34 Sloan Chau MD Mar 17, 2017 15:08
[2017-03-17] MEDS ORDERED: PROPOFOL 200 MG/20 ML AMP IV ONE (12:00)
[2017-03-17] MEDS ORDERED: PHENYLEPH/NS 1000 MCG/10 ML SYR IV ONE (12:00)
[2017-03-17] MEDS ORDERED: NEOSTIGMINE 3 MG/3 ML SYR IV ONE (12:00)
[2017-03-17] MEDS ORDERED: ONDANSETRON HCL 4 MG/2 ML VIAL IV PUSH ONE (12:00)
--- NOTE | 2017-03-17 15:50 | PD.OP ---
Operative Report Date of Surgery: Mar 17, 2017 Preoperative Diagnosis: (1) Hydronephrosis, left (2) Ureteral calculus, left Postoperative Diagnosis: (1) Hydronephrosis, left (2) Ureteral calculus, left Procedure: Cystoscopy and insertion of manager terminal left ureteral stent Anesthesia: General Surgeon: Christiano Marquez Social Work Faculty Member(s): None Operation and Findings: Indication for procedure: Case of a pleasant 76-year-old female with left hydronephrosis secondary to obstructing left proximal ureteral stones who presents now for cystoscopy and left stent insertion. Operative procedure in detail: Patient was brought to the operating suite and placed supine on the OR table. She was then placed under general anesthesia. She was then repositioned in the dorsal lithotomy position and prepped and draped in normal sterile fashion. After appropriate timeout was undertaken I proceeded with cystoscopic evaluation utilizing the rigid cystoscope with the 20 Persian sheath and the 30 lens. Both right and left ureteral orifices were in correct anatomic position. No reflux of urine was noted from either ureteral orifice. I next proceeded with placing a sensor 0.035 wire up the patient's left ureter and was able to negotiated around the proximal ureteral stones under fluoroscopic guidance and further advance the wire into the left renal pelvis. I then placed a optimal group home 6 Persian / 24 cm double-J stent over the wire under both fluoroscopic and cystoscopic guidance without difficulty. Once the stent was in proper position the trailing string was removed. A 16 Persian 10 cc Nagy catheter was next placed and connected to gravity drainage. The patient tolerated the procedures without complications and was transferred to the PACU in satisfactory condition. Christiano Marquez MD Mar 17, 2017 15:50
[2017-03-17] MEDS ORDERED: MEPERIDINE HCL 25 MG/ML VIAL ONE (16:01)
[2017-03-17] MEDS ORDERED: DO NOT ADM ANY ANTICOAGULANT DRUGS PRN (16:04)
[2017-03-17] MEDS ORDERED: *LABETALOL HCL 100 MG/20 ML VIAL PERIprocedural Use ONLY ONE (16:34)
[2017-03-18] VITALS (21 sets, daily range): BP systolic 127–201; BP diastolic 58–95; PULSE 83–100; RESP 14–22; TEMP 98.4–99.5; O2SAT 92–98
[2017-03-18] MEDS: AZTREONAM INJ 1,000 MG in SODIUM CHLORIDE 0.9% INJ 100 ML IV SCH ×3 (00:28→17:52)
[2017-03-18] MEDS: RESP: IPRATROPIUM 0.5 MG/2.5 ML NEB NEB SCH ×4 (03:34→20:54)
[2017-03-18] MEDS: CHLORHEXIDINE GLUCONATE 2 % 1 PACK (2 CLOTHS)(taper/protocol) TOPICAL SCH (04:00)
[2017-03-18 05:32] LABS: AUTOMATED NEUTROPHIL # 11.4 TH/MM3 (1.8-7.7); BASOPHIL # 0.1 TH/MM3 (0-0.2); BASOPHIL % 0.5 % (0.0-2.0); EOSINOPHIL # 0.2 TH/MM3 (0-0.4); EOSINOPHIL % 1.5 % (0.0-4.0); HEMATOCRIT 25.4 % (35.0-46.0); HEMO FLAGS DIFF FINAL; LYMPH % 6.5 % (9.0-44.0); LYMPHOCYTE # 0.9 TH/MM3 (1.0-4.8); MEAN CELL VOLUME 93.9 FL (80.0-100.0); MEAN CORPUSCULAR HEMOGLOBIN 30.4 PG (27.0-34.0); MEAN CORPUSCULAR HGB CONC 32.4 % (32.0-36.0); MONO % 4.1 % (0.0-8.0); NEUT % 87.4 % (16.0-70.0); PLATELET COUNT 156 TH/MM3 (150-450); RED BLOOD COUNT 2.71 MIL/MM3 (4.00-5.30); RED CELL DISTRIBUTION WIDTH 15.7 % (11.6-17.2); WHITE BLOOD COUNT 13.1 TH/MM3 (4.0-11.0)
[2017-03-18] MEDS: INSULIN NovoLIN REGULAR SUPPLEMENTAL SCALE SQ SCH ×4 (06:00→17:54)
[2017-03-18] MEDS: metroNIDAZOLE 500 MG INJ 100 ML IV SCH ×2 (06:09→09:56)
[2017-03-18] MEDS: HEPARIN SODIUM - SQ 10,000 UNITS/ML VIAL SQ SCH ×3 (06:10→22:57)
[2017-03-18 07:02] LABS: CALCIUM-PROTEIN CORRECTED 7.7 MG/DL (8.5-10.1); POTASSIUM 4.1 MEQ/L (3.5-5.1); TOTAL BILIRUBIN ADULT 0.2 MG/DL (0.2-1.0)
--- NOTE | 2017-03-18 08:58 | HHI.CCPN ---
Subjective Remarks/Hospital Course This is a 76-year-old female with a history of urinary retention with chronic Nagy catheter who was brought in on 03/15 from her residential facility with fever. She was per report lethargic in the emergency department. She was admitted to the hospital with a presumptive diagnosis of catheter associated urinary tract infection from her outside facility. In the emergency department she was given a dose of Zosyn IV, gentamicin IV, vancomycin IV. She was admitted in the hospitalist team placed her on vancomycin and Levaquin. Despite optimal therapy, she continued to be altered and became more hypotensive throughout the morning. She was rapid response for persistent hypotension and transferred to the intensive care unit for closer monitoring and management of her now presumed septic shock. Critical care medicine is consulted to evaluate and manage her shock as well as her multiorgan dysfunction including acute kidney injury and metabolic encephalopathy. Unfortunately, the patient is to encephalopathic to answer questions and no additional history can be obtained from the patient. 03/17 Patient is lying in bed in NAD. Afebrile. 03/18 No events overnight. Awake and alert. s/p cystoscopy and left ureteral stent placement yesterday. Afebrile. Objective Vital Signs Date Time Temp Pulse Resp B/P (MAP) Pulse Ox O2 Delivery O2 Flow Rate FiO2 03/18/17 04:00 90 03/18/17 03:34 98 Nasal Cannula 2.00 03/18/17 01:30 15 03/18/17 01:00 127/58 (81) 03/18/17 00:00 99.5 03/17/17 01:02 35 Intake and Output 03/18/17 03/18/17 03/19/17 08:00 16:00 00:00 Intake Total 240 ml Output Total 1550 ml Balance -1310 ml Result Diagram: 03/18/17 0420 03/18/17 0420 Other Results Laboratory Tests Test 03/18/17 04:20 White Blood Count 13.1 TH/MM3 Red Blood Count 2.71 MIL/MM3 Hemoglobin 8.2 GM/DL Hematocrit 25.4 % Mean Corpuscular Volume 93.9 FL Mean Corpuscular Hemoglobin 30.4 PG Mean Corpuscular Hemoglobin Concent 32.4 % Red Cell Distribution Width 15.7 % Platelet Count 156 TH/MM3 Mean Platelet Volume 8.7 FL Neutrophils (%) (Auto) 87.4 % Lymphocytes (%) (Auto) 6.5 % Monocytes (%) (Auto) 4.1 % Eosinophils (%) (Auto) 1.5 % Basophils (%) (Auto) 0.5 % Neutrophils # (Auto) 11.4 TH/MM3 Lymphocytes # (Auto) 0.9 TH/MM3 Monocytes # (Auto) 0.5 TH/MM3 Eosinophils # (Auto) 0.2 TH/MM3 Basophils # (Auto) 0.1 TH/MM3 CBC Comment DIFF FINAL Differential Comment Blood Urea Nitrogen 43 MG/DL Creatinine 2.26 MG/DL Random Glucose 86 MG/DL Total Protein 5.7 GM/DL Albumin 2.1 GM/DL Calcium Level 7.0 MG/DL Alkaline Phosphatase 131 U/L Aspartate Amino Transf (AST/SGOT) 13 U/L Alanine Aminotransferase (ALT/SGPT) 18 U/L Total Bilirubin 0.2 MG/DL Sodium Level 146 MEQ/L Potassium Level 4.1 MEQ/L Chloride Level 115 MEQ/L Carbon Dioxide Level 20.0 MEQ/L Anion Gap 11 MEQ/L Estimat Glomerular Filtration Rate 21 ML/MIN Protein Corrected Calcium 7.7 MG/DL Imaging Last Impressions Chest X-Ray 03/17/17 0000 Signed Impressions: Service Date/Time: Friday, March 17, 2017 02:24 - CONCLUSION: Left IJ central line distal tip in the SVC. No pneumothorax is visualized. Remberto Cooper MD Abdomen/Pelvis CT 03/16/17 0000 Signed Impressions: Service Date/Time: February 20:38 - CONCLUSION: 1. Numerous calcifications seen in the kidneys bilaterally. On the left side there are calcifications seen at the left UPJ/proximal ureter concerning for some obstruction at the left collecting system. 2. Generalized atrophy at the right kidney with a prominent staghorn calculus seen at the right renal collecting system. 3. A moderate amount of stool seen throughout the colon. There are colonic diverticula. 4. Mild distension of much of the small bowel measuring up to 3.5 cm. This is nonspecific. 5. Normal free fluid in the left paracolic gutter region. The cause of this is not clearly identified. 6. Chronic change at the proximal femur and hip regions bilaterally. This is a longstanding issue. 7. Left lower lobe consolidation/pneumonia. Remberto Ashford MD Objective Remarks GENERAL: Patient is lying in bed in NAD SKIN: Warm and dry. HEAD: Normocephalic. EYES: No scleral icterus. No injection or drainage. NECK: Supple, trachea midline. No JVD or lymphadenopathy. CARDIOVASCULAR: Regular rate and rhythm without murmurs, gallops, or rubs. RESPIRATORY: Breath sounds equal bilaterally. No accessory muscle use. GASTROINTESTINAL: Abdomen soft, non-tender, nondistended. MUSCULOSKELETAL: No cyanosis, or edema. Neuro: Awake and alert Procedures None A/P Assessment and Plan 1)Resp Insuff 2)Gram negative bacteremia 3)UTI- Pseudomonas 4)Leucocytosis 5)Metabolic encephalopathy..improved 6)Acute kidney injury 7)Lactic acidosis- Resolved 8)Acute protein calorie malnutrition- moderate 9)Hyperglycemia of critical illness 10)Calcifications left UPJ/ureter Neuro: Awake and alert Pulm: Continue with oxygen keep sat >92% Bronchodilators CV: Monitor HR and BP keep MAP>65mmHg Lactic acid cleared 0.7 on 03/17 : Monitor renal function, I/O's, avoid nephrotoxins Cr: 2.26 today, UOP: 3500 ml. Renal is following, change IVF 1/2NS@75ml/hr s/p cystoscopy and left ureteral stent placement 03/17 GI: On PO diet ID: Continue with abx ( Aztreonam, Levaquin, Flagyl) Monitor for signs of infections ( Fever, WBC) WBC is trending down BC 03/16 GNR, BC 03/17: NGTD UC 03/16: GNR, pseudomonas ID is following Heme: Monitor CBC, on FESO4 325 mg daily Endo: SSI with accuchecks GI/DVT prophylaxis - on Protonix and Heparin SQ respectively Lines: Left IJ CVP placed 03/17, Will sign off and transfer care to [facility] Level 3 Mike Mae MD Mar 18, 2017 08:58
[2017-03-18] MEDS: SODIUM CHLOR 0.45% 1000 ML INJ 1,000 ML IV SCH (09:18)
[2017-03-18] MEDS: DOCUSATE SODIUM 100 MG CAP PO SCH ×3 (09:19→17:52)
[2017-03-18] MEDS: PANTOPRAZOLE SOD 40 MG DELAYED RELEASE TAB PO SCH (09:19)
[2017-03-18] MEDS: FERROUS SULFATE 325 MG (65 MG ELEMENTAL IRON) TAB PO SCH (09:19)
[2017-03-18] MEDS: SODIUM CHLORIDE 0.9% FLUSH 10 ML FLUSH IV FLUSH SCH ×2 (09:20→22:58)
[2017-03-18] MEDS: ACETAMINOPHEN/HYDROcodone 325 MG/10 MG TAB PO PRN ×2 (09:56→23:09)
--- NOTE | 2017-03-18 09:56 | EKG ---
Date Performed: 03/17/2017 Time Performed: 14:49:42 PTAGE: 76 years EKG: Sinus rhythm ANTEROSEPTAL MYOCARDIAL INFARCTION , OF INDETERMINATE AGE ABNORMAL ECG NO PREVIOUS TRACING DOCTOR: Chris Potter Interpretating Date/Time 03/18/2017 09:54:31
--- NOTE | 2017-03-18 13:02 | HHI.IDPN ---
Subjective Subjective Remarks CT showed obstructive stone in L ureter sp Cystoscopy and insertion of long term care administrator left ureteral stent on 03/[address] Marquez doing well afebrile creatinine slighlty improved Antibiotics azzactam levaqiuinw Allergies: Coded Allergies: cephalexin (Verified Allergy, Unknown, 03/16/17) erythromycin base (Verified Allergy, Unknown, 03/16/17) shellfish derived (Verified Allergy, Unknown, 03/16/17) Objective . Vital Signs Date Time Temp Pulse Resp B/P (MAP) Pulse Ox O2 Delivery O2 Flow Rate FiO2 03/18/17 10:56 16 03/18/17 10:15 94 03/18/17 10:00 100 03/18/17 08:00 98.9 93 22 165/80 (108) 98 03/18/17 08:00 93 03/18/17 04:00 90 03/18/17 03:34 98 Nasal Cannula 2.00 03/18/17 02:00 91 03/18/17 01:30 92 15 96 03/18/17 01:15 95 19 97 03/18/17 01:00 94 18 127/58 (81) 96 03/18/17 00:45 92 17 97 03/18/17 00:30 91 17 97 03/18/17 00:23 95 14 136/61 (86) 97 03/18/17 00:15 95 14 97 03/18/17 00:00 98 22 96 03/18/17 00:00 99.5 03/18/17 00:00 98 03/17/17 23:45 96 19 03/17/17 23:30 96 18 95 03/17/17 23:15 99 20 96 03/17/17 23:00 101 21 158/70 (99) 96 03/17/17 22:45 97 20 95 03/17/17 22:30 96 15 95 03/17/17 22:15 98 16 95 03/17/17 22:00 99 03/17/17 22:00 99 16 147/74 (98) 96 03/17/17 21:45 97 15 95 03/17/17 21:30 97 15 95 03/17/17 21:15 98 14 96 03/17/17 21:09 105 19 130/61 (84) 96 03/17/17 21:00 101 26 96 03/17/17 20:45 97 30 96 03/17/17 20:30 98 20 96 03/17/17 20:15 96 22 165/70 (101) 96 03/17/17 20:00 98 03/17/17 20:00 99.7 21 03/17/17 19:45 95 15 95 03/17/17 19:30 97 19 95 03/17/17 19:15 94 15 96 03/17/17 18:00 97 03/17/17 17:00 87 03/17/17 17:00 98.8 87 18 139/76 (97) 96 03/17/17 16:40 97.4 95 14 153/74 (100) 96 Nasal Cannula 2 03/17/17 16:30 113 14 196/101 (132) 96 Nasal Cannula 2 03/17/17 16:15 118 14 155/86 (109) 96 Nasal Cannula 2 03/17/17 16:02 97.4 127 14 118/89 (99) 96 Nasal Cannula 4 03/17/17 14:00 90 03/18/17 03/18/17 03/19/17 15:00 23:00 07:00 Intake Total 100 ml Balance 100 ml IV Total 100 ml . Laboratory Tests Test 03/17/17 03:50 03/17/17 07:51 03/18/17 04:20 White Blood Count 16.3 TH/MM3 15.3 TH/MM3 13.1 TH/MM3 Red Blood Count 2.82 MIL/MM3 2.89 MIL/MM3 2.71 MIL/MM3 Hemoglobin 8.5 GM/DL 8.7 GM/DL 8.2 GM/DL Hematocrit 26.1 % 26.8 % 25.4 % Mean Corpuscular Volume 92.7 FL 92.6 FL 93.9 FL Mean Corpuscular Hemoglobin 30.2 PG 30.1 PG 30.4 PG Mean Corpuscular Hemoglobin Concent 32.5 % 32.5 % 32.4 % Red Cell Distribution Width 15.5 % 15.8 % 15.7 % Platelet Count 138 TH/MM3 147 TH/MM3 156 TH/MM3 Mean Platelet Volume 8.3 FL 7.9 FL 8.7 FL Neutrophils (%) (Auto) 89.9 % 89.6 % 87.4 % Lymphocytes (%) (Auto) 4.6 % 4.1 % 6.5 % Monocytes (%) (Auto) 4.0 % 4.0 % 4.1 % Eosinophils (%) (Auto) 1.3 % 2.0 % 1.5 % Basophils (%) (Auto) 0.2 % 0.3 % 0.5 % Neutrophils # (Auto) 14.7 TH/MM3 13.7 TH/MM3 11.4 TH/MM3 Lymphocytes # (Auto) 0.8 TH/MM3 0.6 TH/MM3 0.9 TH/MM3 Monocytes # (Auto) 0.7 TH/MM3 0.6 TH/MM3 0.5 TH/MM3 Eosinophils # (Auto) 0.2 TH/MM3 0.3 TH/MM3 0.2 TH/MM3 Basophils # (Auto) 0.0 TH/MM3 0.0 TH/MM3 0.1 TH/MM3 CBC Comment DIFF FINAL DIFF FINAL DIFF FINAL Differential Comment Laboratory Tests Test 03/17/17 03:50 03/17/17 07:51 03/18/17 04:20 Blood Urea Nitrogen 49 MG/DL 43 MG/DL Creatinine 2.13 MG/DL 2.26 MG/DL Random Glucose 91 MG/DL 86 MG/DL Total Protein 5.6 GM/DL 5.7 GM/DL Calcium Level 7.2 MG/DL 7.0 MG/DL Sodium Level 140 MEQ/L 146 MEQ/L Potassium Level 4.1 MEQ/L 4.1 MEQ/L Chloride Level 110 MEQ/L 115 MEQ/L Carbon Dioxide Level 22.3 MEQ/L 20.0 MEQ/L Anion Gap 8 MEQ/L 11 MEQ/L Estimat Glomerular Filtration Rate 23 ML/MIN 21 ML/MIN Protein Corrected Calcium 8.0 MG/DL 7.7 MG/DL Lactic Acid Level 0.7 mmol/L Albumin 2.1 GM/DL Alkaline Phosphatase 131 U/L Aspartate Amino Transf (AST/SGOT) 13 U/L Alanine Aminotransferase (ALT/SGPT) 18 U/L Total Bilirubin 0.2 MG/DL Microbiology Date/Time Source Procedure Growth Status 03/17/17 10:46 Blood Peripheral Aerobic Blood Culture - Preliminary NO GROWTH IN 1 DAY Resulted 03/17/17 10:46 Blood Peripheral Anaerobic Blood Culture - Preliminary NO GROWTH IN 1 DAY Resulted 03/17/17 10:42 Blood Peripheral Aerobic Blood Culture - Preliminary NO GROWTH IN 1 DAY Resulted 03/17/17 10:42 Blood Peripheral Anaerobic Blood Culture - Preliminary NO GROWTH IN 1 DAY Resulted 8/31/17 00:30 Blood Peripheral Aerobic Blood Culture - Final Escherichia Coli Complete 03/16/17 00:30 Anaerobic Blood Culture - Final Escherichia Coli Complete 03/16/17 00:10 Blood Peripheral Aerobic Blood Culture - Final Escherichia Coli Complete 03/16/17 00:10 Anaerobic Blood Culture - Final Escherichia Coli Complete 03/16/17 00:20 Nasal Washing Influenza Types A,B Antigen (TRUDI) - Final NEGATIVE FOR FLU A AND B ANTIGEN.... Complete 03/16/17 14:30 Urine Catheterized Urine Urine Culture - Final NO GROWTH IN 48 HOURS. Complete 03/16/17 01:10 Urine Catheterized Urine Urine Culture - Preliminary Pseudomonas Aeruginosa Gram Negative Jake Resulted Imaging Last Impressions Chest X-Ray 03/17/17 0000 Signed Impressions: Service Date/Time: Friday, March 17, 2017 02:24 - CONCLUSION: Left IJ central line distal tip in the SVC. No pneumothorax is visualized. Remberto Cooper MD Abdomen/Pelvis CT 03/16/17 0000 Signed Impressions: Service Date/Time: February 20:38 - CONCLUSION: 1. Numerous calcifications seen in the kidneys bilaterally. On the left side there are calcifications seen at the left UPJ/proximal ureter concerning for some obstruction at the left collecting system. 2. Generalized atrophy at the right kidney with a prominent staghorn calculus seen at the right renal collecting system. 3. A moderate amount of stool seen throughout the colon. There are colonic diverticula. 4. Mild distension of much of the small bowel measuring up to 3.5 cm. This is nonspecific. 5. Normal free fluid in the left paracolic gutter region. The cause of this is not clearly identified. 6. Chronic change at the proximal femur and hip regions bilaterally. This is a longstanding issue. 7. Left lower lobe consolidation/pneumonia. Remberto Ashford MD Physical Exam CONSTITUTIONAL/GENERAL: This is an adequately nourished patient, in no apparent distress. TUBES/LINES/DRAINS: SKIN: No jaundice, rashes, or lesions. CARDIOVASCULAR: Regular rate and rhythm with harsh 1-2 /5 holosystolic murmur on the base, no gallops, or rubs. No JVD. Peripheral pulses symmetric. RESPIRATORY/CHEST: Symmetric, unlabored respirations. Clear to auscultation. Breath sounds equal bilaterally. No wheezes, rales, or rhonchi. GASTROINTESTINAL: Abdomen soft, less tender to palpation LLQ mildly distended. No hepato-splenomegaly, or palpable masses. No guarding. Bowel sounds present. GENITOURINARY: Without palpable bladder distension. Nagy catheter in place with clear yellow urine MUSCULOSKELETAL: Extremities without clubbing, cyanosis, or edema. NEUROLOGICAL: Awake and alert. Non focal PSYCHIATRIC: No obvious anxiety/depression. no apparent hallucinations or other psychotic thought process. Assessment & Plan Remarks (1) Hydronephrosis, left (2) Ureteral calculus, left sp Cystoscopy and insertion of long term care administrator left ureteral stent UTI , complicated in the settings of obstruction Kleb pneumo. PSAE in urine Sepsis, Klebsiella 2/2 UTI R levaquine vs GI - WBC> 20K, temp 101.7, lactic acidosis Hypotension 2/2 sepsis -resolved Leukocytosis 2/2 sepsis - improving ARF slightly better -cont azactam, dc levaquin dc Anna Lennon MD Mar 18, 2017 13:02
--- NOTE | 2017-03-18 13:32 | HHI.NPPN ---
Subjective Renal Failure: Chronic, Acute History of Present Illness 76 y/[facility] with fever, suspected UTI. She has chronic indwelling Nagy for urinary retention and neurogenic bladder. Earlier today she became hypotensive and was transferred to [facility]. Her blood pressure was as low a 50s systolic. Creatinine on arrival was 2.47. Additional Remarks Patient is alert, no SOB, on room air. Review of Systems General Constitutional: Fatigue Objective Data Data 03/18/17 03/19/17 19:00 07:00 Intake Total 100 ml Balance 100 ml IV Total 100 ml Vital Signs Date Time Temp Pulse Resp B/P (MAP) Pulse Ox O2 Delivery O2 Flow Rate FiO2 03/18/17 12:00 88 03/18/17 10:56 16 03/18/17 10:15 94 03/18/17 10:00 100 03/18/17 08:00 98.9 93 22 165/80 (108) 98 03/18/17 08:00 93 03/18/17 04:00 90 03/18/17 03:34 98 Nasal Cannula 2.00 03/18/17 02:00 91 03/18/17 01:30 92 15 96 03/18/17 01:15 95 19 97 03/18/17 01:00 94 18 127/58 (81) 96 03/18/17 00:45 92 17 97 03/18/17 00:30 91 17 97 03/18/17 00:23 95 14 136/61 (86) 97 03/18/17 00:15 95 14 97 03/18/17 00:00 98 22 96 03/18/17 00:00 99.5 03/18/17 00:00 98 03/17/17 23:45 96 19 03/17/17 23:30 96 18 95 03/17/17 23:15 99 20 96 03/17/17 23:00 101 21 158/70 (99) 96 03/17/17 22:45 97 20 95 03/17/17 22:30 96 15 95 03/17/17 22:15 98 16 95 03/17/17 22:00 99 03/17/17 22:00 99 16 147/74 (98) 96 03/17/17 21:45 97 15 95 03/17/17 21:30 97 15 95 03/17/17 21:15 98 14 96 03/17/17 21:09 105 19 130/61 (84) 96 03/17/17 21:00 101 26 96 03/17/17 20:45 97 30 96 03/17/17 20:30 98 20 96 03/17/17 20:15 96 22 165/70 (101) 96 03/17/17 20:00 98 03/17/17 20:00 99.7 21 03/17/17 19:45 95 15 95 03/17/17 19:30 97 19 95 03/17/17 19:15 94 15 96 03/17/17 18:00 97 03/17/17 17:00 87 03/17/17 17:00 98.8 87 18 139/76 (97) 96 03/17/17 16:40 97.4 95 14 153/74 (100) 96 Nasal Cannula 2 03/17/17 16:30 113 14 196/101 (132) 96 Nasal Cannula 2 03/17/17 16:15 118 14 155/86 (109) 96 Nasal Cannula 2 03/17/17 16:02 97.4 127 14 118/89 (99) 96 Nasal Cannula 4 03/17/17 14:00 90 -: 03/18/17 0420 03/18/17 0420 Tubes & Lines: Nagy Tubes & Lines Comment TLC left IJ Physical Exam General Appearance: Well Nourished, No Acute Distress, Comfortable Eyes Eye Exam: Pupils Equal Throat Throat Exam: Oral Mucosa [place] & Moist Pulmonary Resp Exam: Clear Bilaterally, Breath Sounds Equal Cardiology CV Exam: Regular, Normal Sinus Rhythm Gastrointestinal/Abdomen GI Exam: Soft, Non-Tender Genitourinary Exam: Clear Urine Musculoskeletal MS Exam: Joints Intact, Atrophy, Unable to Ambulate Integumentary Skin Exam: Clear, Warm, Dry, Intact Extremeties Extremities Exam: Trace Edema Neurologic Neuro Exam: Alert, Awake, Oriented, Speech Clear Psychiatric Psych Exam: Appropriate Responses Assessment/Plan Discussed Condition With: Patient Assessment Summary: WHIT/Acute Renal Failure Problem List: (1) Acute renal failure ICD Codes: N17.9 - Acute kidney failure, unspecified Plan: No baseline labs for comparison WHIT likely due to septic shock (hypotension, decreased renal perfusion); may have progressed to ATN she also has left side occluding renal stones; urology has evaluated and due for cystoscopy today at this time her BP has improved without pressor support continue IVF, NS @ 100 cc/hr oral intake encouraged antibiotics as below to treat urosepsis monitor urine output, she is non oliguric avoid nephrotoxins. Creatinine is slightly increased, now 2.2. Continue antibiotics and IVF. (2) Severe sepsis ICD Codes: A41.9 - Sepsis, unspecified organism; R65.20 - Severe sepsis without septic shock Status: Acute Plan: BC + x 4, GNR, source UTI ([place]) has been evaluated by ID on Flagyl, Azactam, Levaquin ; given gentamicin, and vancomycin but they were not continued continue supportive care Jackie Gamboa MD Mar 18, 2017 13:32
[2017-03-19] VITALS (14 sets, daily range): BP systolic 129–180; BP diastolic 76–106; PULSE 74–100; RESP 17–24; TEMP 97.6–99.1; O2SAT 92–98
[2017-03-19] MEDS: AZTREONAM INJ 1,000 MG in SODIUM CHLORIDE 0.9% INJ 100 ML IV SCH ×3 (01:14→16:11)
[2017-03-19] MEDS: METOPROLOL TARTRATE 25 MG TAB PO SCH ×3 (01:14→21:15)
[2017-03-19] MEDS: RESP: IPRATROPIUM 0.5 MG/2.5 ML NEB NEB SCH ×4 (03:39→20:21)
[2017-03-19] MEDS: CHLORHEXIDINE GLUCONATE 2 % 1 PACK (2 CLOTHS)(taper/protocol) TOPICAL SCH (04:00)
[2017-03-19 05:02] LABS: AUTOMATED NEUTROPHIL # 6.9 TH/MM3 (1.8-7.7); BASOPHIL % 0.4 % (0.0-2.0); EOSINOPHIL # 0.4 TH/MM3 (0-0.4); EOSINOPHIL % 4.5 % (0.0-4.0); HEMATOCRIT 26.7 % (35.0-46.0); HEMO FLAGS DIFF FINAL; LYMPH % 10.4 % (9.0-44.0); LYMPHOCYTE # 0.9 TH/MM3 (1.0-4.8); MEAN CELL VOLUME 93.6 FL (80.0-100.0); MEAN CORPUSCULAR HEMOGLOBIN 30.2 PG (27.0-34.0); MEAN CORPUSCULAR HGB CONC 32.3 % (32.0-36.0); MONO % 5.1 % (0.0-8.0); NEUT % 79.6 % (16.0-70.0); PLATELET COUNT 154 TH/MM3 (150-450); RED BLOOD COUNT 2.85 MIL/MM3 (4.00-5.30); RED CELL DISTRIBUTION WIDTH 15.6 % (11.6-17.2); WHITE BLOOD COUNT 8.7 TH/MM3 (4.0-11.0)
[2017-03-19 05:31] LABS: BICARBONATE 22.9 MEQ/L (21.0-32.0); POTASSIUM 4.2 MEQ/L (3.5-5.1)
[2017-03-19] MEDS: INSULIN NovoLIN REGULAR SUPPLEMENTAL SCALE SQ SCH ×4 (06:00→18:00)
[2017-03-19] MEDS: SODIUM CHLOR 0.45% 1000 ML INJ 1,000 ML IV SCH ×2 (06:35→10:57)
[2017-03-19] MEDS: HEPARIN SODIUM - SQ 10,000 UNITS/ML VIAL SQ SCH ×3 (06:35→21:15)
[2017-03-19] MEDS: PANTOPRAZOLE SOD 40 MG DELAYED RELEASE TAB PO SCH (09:00)
[2017-03-19] MEDS: SODIUM CHLORIDE 0.9% FLUSH 10 ML FLUSH IV FLUSH SCH (09:00)
[2017-03-19] MEDS ORDERED: LEVOFLOXACIN 500 MG PREMIX INJ 100 ML IV SCH (09:00)
[2017-03-19] MEDS: FERROUS SULFATE 325 MG (65 MG ELEMENTAL IRON) TAB PO SCH (09:00)
[2017-03-19] MEDS: DOCUSATE SODIUM 100 MG CAP PO SCH ×3 (09:00→18:20)
--- NOTE | 2017-03-19 09:09 | HHI.PR ---
Subjective Remarks sap specialist Notes: This is a 76-year-old female with a history of urinary retention with chronic Nagy catheter who was brought in on 03/15 from her intermediate facility with fever. She was per report lethargic in the emergency department. She was admitted to the hospital with a presumptive diagnosis of catheter associated urinary tract infection from her outside facility. In the emergency department she was given a dose of Zosyn IV, gentamicin IV, vancomycin IV. She was admitted in the hospitalist team placed her on vancomycin and Levaquin. Despite optimal therapy, she continued to be altered and became more hypotensive throughout the morning. She was rapid response for persistent hypotension and transferred to the intensive care unit for closer monitoring and management of her now presumed septic shock. Critical care medicine is consulted to evaluate and manage her shock as well as her multiorgan dysfunction including acute kidney injury and metabolic encephalopathy. Unfortunately, the patient is to encephalopathic to answer questions and no additional history can be obtained from the patient. 03/17 Patient is lying in bed in NAD. Afebrile. 03/18 No events overnight. Awake and alert. s/p cystoscopy and left ureteral stent placement yesterday. Afebrile. 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 Patient stable in her bedroom discussed with nurse and with patient, complaint of Nausea, but no vomit or diarrhea. Objective Vital Signs Date Time Temp Pulse Resp B/P (MAP) Pulse Ox O2 Delivery O2 Flow Rate FiO2 03/19/17 06:00 92 03/19/17 04:00 92 03/19/17 04:00 98.6 92 17 133/94 (107) 97 03/19/17 02:00 99 03/19/17 00:00 98.8 100 20 170/106 (127) 92 03/19/17 00:00 100 03/18/17 22:00 99 03/18/17 20:55 92 21 03/18/17 20:00 98.6 97 20 201/95 (130) 93 03/18/17 20:00 100 9/2/17 19:30 6 03/18/17 18:00 99 03/18/17 16:00 83 03/18/17 16:00 98.5 83 15 161/75 (103) 95 03/18/17 14:00 88 03/18/17 12:00 98.4 88 14 138/66 (90) 92 03/18/17 12:00 88 03/18/17 10:15 94 03/18/17 10:00 100 I/O 03/18/17 03/18/17 03/18/17 03/19/17 03/19/17 03/19/17 07:00 15:00 23:00 07:00 15:00 23:00 Intake Total 240 ml 200 ml 1624 ml 1200 ml Output Total 1550 ml 2050 ml 2300 ml Balance -1310 ml 200 ml -426 ml -1100 ml Intake Oral 240 ml 680 ml 250 ml IV Total 200 ml 944 ml 950 ml Output Urine Total 1550 ml 2050 ml 2300 ml # Bowel Movements 0 Result Diagram: 03/19/17 0400 03/19/17 0400 Imaging Last Impressions Chest X-Ray 03/17/17 0000 Signed Impressions: Service Date/Time: Friday, March 17, 2017 02:24 - CONCLUSION: Left IJ central line distal tip in the SVC. No pneumothorax is visualized. Remberto Cooper MD Abdomen/Pelvis CT 03/16/17 0000 Signed Impressions: Service Date/Time: February 20:38 - CONCLUSION: 1. Numerous calcifications seen in the kidneys bilaterally. On the left side there are calcifications seen at the left UPJ/proximal ureter concerning for some obstruction at the left collecting system. 2. Generalized atrophy at the right kidney with a prominent staghorn calculus seen at the right renal collecting system. 3. A moderate amount of stool seen throughout the colon. There are colonic diverticula. 4. Mild distension of much of the small bowel measuring up to 3.5 cm. This is nonspecific. 5. Normal free fluid in the left paracolic gutter region. The cause of this is not clearly identified. 6. Chronic change at the proximal femur and hip regions bilaterally. This is a longstanding issue. 7. Left lower lobe consolidation/pneumonia. Remberto Ashford MD Procedures s/p cystoscopy and left ureteral stent placement 03/17 Other Results Laboratory Tests Test 03/16/17 01:10 03/16/17 14:15 03/16/17 14:30 03/17/17 07:51 Urine WBC Clumps MANY Urine Squamous Epithelial Cells 1 /hpf Urine Transitional Epithelial Cells <1 /hpf Urine Renal Epithelial Cells <1 /hpf Nasal Screen MRSA (PCR) MRSA NOT DETECTED Urine Color LIGHT-YELLOW Urine Turbidity HAZY Urine pH 6.0 Urine Specific [place] 1.007 Urine Protein TRACE mg/dL Urine Glucose (UA) NEG mg/dL Urine Ketones NEG mg/dL Urine Occult Blood SMALL Urine Nitrite NEG Urine Bilirubin NEG Urine Urobilinogen LESS THAN 2.0 MG/DL Urine Leukocyte Esterase LARGE Urine RBC 6 /hpf Urine WBC 63 /hpf Urine Amorphous Sediment RARE Urine Bacteria MANY /hpf Microscopic Urinalysis Comment CATH-CULTURE IND Lactic Acid Level 0.7 mmol/L Test 03/18/17 04:20 03/19/17 04:00 Protein Corrected Calcium 7.7 MG/DL Blood Urea Nitrogen 43 MG/DL 40 MG/DL Creatinine 2.26 MG/DL 2.46 MG/DL Random Glucose 86 MG/DL 105 MG/DL Total Protein 5.7 GM/DL Albumin 2.1 GM/DL Calcium Level 7.0 MG/DL 8.0 MG/DL Alkaline Phosphatase 131 U/L Aspartate Amino Transf (AST/SGOT) 13 U/L Alanine Aminotransferase (ALT/SGPT) 18 U/L Total Bilirubin 0.2 MG/DL Sodium Level 146 MEQ/L 143 MEQ/L Potassium Level 4.1 MEQ/L 4.2 MEQ/L Chloride Level 115 MEQ/L 111 MEQ/L Carbon Dioxide Level 20.0 MEQ/L 22.9 MEQ/L White Blood Count 8.7 TH/MM3 Red Blood Count 2.85 MIL/MM3 Hemoglobin 8.6 GM/DL Hematocrit 26.7 % Mean Corpuscular Volume 93.6 FL Mean Corpuscular Hemoglobin 30.2 PG Mean Corpuscular Hemoglobin Concent 32.3 % Red Cell Distribution Width 15.6 % Platelet Count 154 TH/MM3 Mean Platelet Volume 8.3 FL Neutrophils (%) (Auto) 79.6 % Lymphocytes (%) (Auto) 10.4 % Monocytes (%) (Auto) 5.1 % Eosinophils (%) (Auto) 4.5 % Basophils (%) (Auto) 0.4 % Neutrophils # (Auto) 6.9 TH/MM3 Lymphocytes # (Auto) 0.9 TH/MM3 Monocytes # (Auto) 0.4 TH/MM3 Eosinophils # (Auto) 0.4 TH/MM3 Basophils # (Auto) 0.0 TH/MM3 CBC Comment DIFF FINAL Differential Comment Anion Gap 9 MEQ/L Estimat Glomerular Filtration Rate 19 ML/MIN Objective Remarks GENERAL: Obesity SKIN: Warm and dry. HEAD: Normocephalic. EYES: No scleral icterus. No injection or drainage. NECK: Supple, trachea midline. No JVD or lymphadenopathy. CARDIOVASCULAR: Regular rate and rhythm without murmurs, gallops, or rubs. RESPIRATORY: Breath sounds equal bilaterally. No accessory muscle use. GASTROINTESTINAL: Abdomen soft, non-tender, nondistended. MUSCULOSKELETAL: No cyanosis, or edema. Neuro: Awake and alert Medications and IVs Current Medications Medications (Trade) Dose Ordered Sig/Marni Route Start Time Stop Time Status Last Admin (NS Flush) 2 ml UNSCH PRN IV FLUSH 03/16/17 02:15 (NS Flush) 2 ml BID IV FLUSH 03/16/17 09:00 03/19/17 09:00 (Narcan Inj) 0.4 mg UNSCH PRN IV 03/16/17 02:15 (Atrovent Neb) 0.5 mg Q6HR NEB NEB 03/16/17 10:00 03/18/17 20:54 (Atrovent Neb) 0.5 mg Q2HR NEB PRN NEB 03/16/17 04:30 (Colace) 100 mg TID PO 03/16/17 09:00 03/19/17 09:00 (Ferrous Sulfate) 325 mg DAILY PO 03/16/17 09:00 03/19/17 09:00 ([place] 10-325 Mg) 1 tab Q6H PRN PO 03/16/17 04:45 03/18/17 23:09 (Protonix) 40 mg DAILY PO 03/16/17 09:00 03/19/17 09:00 (Heparin Inj) 5,000 units Q8HR SQ 03/16/17 06:00 03/19/17 06:35 (D50w (Vial) Inj) 25 ml UNSCH PRN IV PUSH 03/16/17 15:00 (NovoLIN R SUPPLEMENTAL SCALE) 1 Q6HR SQ 03/16/17 18:00 Aztreonam 1000 mg/ Sodium Chloride 100 ml @ 200 mls/hr Q8H IV 03/16/17 17:00 03/19/17 09:00 Miscellaneous Information Patient in critical care unit? Ass... [id number] .XX 03/16/17 21:15 03/16/17 21:15 (Chlorhexidine 2% Cloth) 3 pack DAILY@04 TOPICAL 03/17/17 04:00 03/21/17 04:01 03/17/17 00:39 (Chlorhexidine 2% Cloth) 3 pack UNSCH PRN TOPICAL 03/16/17 21:15 03/21/17 21:01 (Brethine Inj) 1 mg UNSCH PRN SQ 03/17/17 02:30 Sodium Chloride 1,000 ml @ 75 mls/hr [id number] IV 03/18/17 09:00 03/19/17 06:35 (Lopressor) 25 mg Q12HR PO 03/19/17 01:00 03/19/17 09:00 A/P Assessment and Plan 1. Respiratory Insufficiency Bronchodilator and oxygen to keep oxygen saturation over 92%. 2. Septic Shock/Severe Sepsis/Gram Negative Bacteremia/Leukocytosis BC 03/16 GNR, BC 03/17: NGTD UC 03/16: GNR, pseudomonas ID is following 3. Calcifications left UPJ/ureter 4. Metabolic encephalopathy Improved. 5. Acute Kidney injury Nephrology specialist following. Status post Cystoscopy and left ureteral stent placement 03/17 patient with Hydronephrosis, has Klebsiella UTI resistant to Levaquin, Sepsis Shock resolved, On Azactam, Discontinued Levaquin and Flagyl by ID specialist. worsening Creatinine probable ATN GI/DVT prophylaxis - on Protonix and Heparin SQ respectively Lines: Left IJ CVP placed 03/17, Discharge Planning Once cleared by Specialists. Michael Garcia MD Mar 19, 2017 09:09
--- NOTE | 2017-03-19 15:19 | HHI.NPPN ---
Subjective Renal Failure: Chronic, Acute History of Present Illness 76 y/o female admitted from [facility] for AMS with fever, suspected UTI. She has chronic indwelling Nagy for urinary retention and neurogenic bladder. Earlier today she became hypotensive and was transferred to [facility]. Her blood pressure was as low a 50s systolic. Creatinine on arrival was 2.47. Additional Remarks Patient is alert, no SOB, on room air, clinically same, not in distress. Review of Systems General Constitutional: Fatigue Objective Data Data Vital Signs Date Time Temp Pulse Resp B/P (MAP) Pulse Ox O2 Delivery O2 Flow Rate FiO2 03/19/17 12:00 78 03/19/17 12:00 99.1 78 18 180/82 (114) 95 03/19/17 10:00 81 03/19/17 10:00 93 03/19/17 09:23 94 03/19/17 08:00 98.9 93 22 163/81 (108) 96 03/19/17 08:00 93 03/19/17 06:00 92 03/19/17 04:00 92 03/19/17 04:00 98.6 92 17 133/94 (107) 97 03/19/17 02:00 99 03/19/17 00:00 98.8 100 20 170/106 (127) 92 03/19/17 00:00 100 03/18/17 22:00 99 03/18/17 20:55 92 21 03/18/17 20:00 98.6 97 20 201/95 (130) 93 03/18/17 20:00 100 03/18/17 19:30 6 03/18/17 18:00 99 03/18/17 16:00 83 03/18/17 16:00 98.5 83 15 161/75 (103) 95 -: 03/19/17 0400 03/19/17 0400 Tubes & Lines: Nagy Tubes & Lines Comment TLC left IJ Physical Exam General Appearance: Well Nourished, No Acute Distress, Comfortable Eyes Eye Exam: Pupils Equal Throat Throat Exam: Oral Mucosa [place] & Moist Pulmonary Resp Exam: Clear Bilaterally, Breath Sounds Equal Cardiology CV Exam: Regular, Normal Sinus Rhythm Gastrointestinal/Abdomen GI Exam: Soft, Non-Tender Genitourinary Exam: Clear Urine Musculoskeletal MS Exam: Joints Intact, Atrophy, Unable to Ambulate Integumentary Skin Exam: Clear, Warm, Dry, Intact Extremeties Extremities Exam: Trace Edema Neurologic Neuro Exam: Alert, Awake, Oriented, Speech Clear Psychiatric Psych Exam: Appropriate Responses Assessment/Plan Discussed Condition With: Patient Assessment Summary: WHIT/Acute Renal Failure Problem List: (1) Acute renal failure ICD Codes: N17.9 - Acute kidney failure, unspecified Plan: No baseline labs for comparison WHIT likely due to septic shock (hypotension, decreased renal perfusion); may have progressed to ATN she also has left side occluding renal stones; urology has evaluated and due for cystoscopy today at this time her BP has improved without pressor support continue IVF, NS @ 100 cc/hr oral intake encouraged antibiotics as below to treat urosepsis monitor urine output, she is non oliguric avoid nephrotoxins. Creatinine is slightly increased, now it is 2.4. Continue antibiotics and IVF. Remain non oliguric, possibly has ATN. (2) Severe sepsis ICD Codes: A41.9 - Sepsis, unspecified organism; R65.20 - Severe sepsis without septic shock Status: Acute Plan: BC + x 4, GNR, source UTI ([place]) has been evaluated by ID on Flagyl, Azactam, Levaquin ; given gentamicin, and vancomycin but they were not continued continue supportive care Jackie Gamboa MD Mar 19, 2017 15:19
[2017-03-19] MEDS: cloNIDine HCL 0.1 MG TAB PO PRN (16:11)
[2017-03-19] MEDS: ONDANSETRON HCL 4 MG/2 ML VIAL IV PUSH PRN (18:20)
[2017-03-19] MEDS: ACETAMINOPHEN/HYDROcodone 325 MG/10 MG TAB PO PRN (21:15)
[2017-03-20] VITALS (20 sets, daily range): BP systolic 122–193; BP diastolic 59–90; PULSE 71–99; RESP 15–26; TEMP 97.7–99.2; O2SAT 90–98
[2017-03-20] MEDS: AZTREONAM INJ 1,000 MG in SODIUM CHLORIDE 0.9% INJ 100 ML IV SCH ×3 (01:00→16:51)
[2017-03-20] MEDS: RESP: IPRATROPIUM 0.5 MG/2.5 ML NEB NEB SCH ×4 (03:15→22:26)
[2017-03-20] MEDS: CHLORHEXIDINE GLUCONATE 2 % 1 PACK (2 CLOTHS)(taper/protocol) TOPICAL SCH (04:00)
[2017-03-20] MEDS: INSULIN NovoLIN REGULAR SUPPLEMENTAL SCALE SQ SCH ×4 (06:00→17:58)
[2017-03-20] MEDS: HEPARIN SODIUM - SQ 10,000 UNITS/ML VIAL SQ SCH ×3 (06:14→22:01)
[2017-03-20] MEDS: SODIUM CHLORIDE 0.9% FLUSH 10 ML FLUSH IV FLUSH SCH ×2 (08:38→22:01)
[2017-03-20] MEDS: ONDANSETRON HCL 4 MG/2 ML VIAL IV PUSH PRN (08:39)
[2017-03-20] MEDS: METOPROLOL TARTRATE 25 MG TAB PO SCH ×2 (08:39→22:01)
[2017-03-20] MEDS: DOCUSATE SODIUM 100 MG CAP PO SCH ×3 (08:39→17:36)
[2017-03-20] MEDS: PANTOPRAZOLE SOD 40 MG DELAYED RELEASE TAB PO SCH (08:39)
[2017-03-20] MEDS: FERROUS SULFATE 325 MG (65 MG ELEMENTAL IRON) TAB PO SCH (08:39)
[2017-03-20] MEDS: ACETAMINOPHEN/HYDROcodone 325 MG/10 MG TAB PO PRN ×3 (09:01→22:01)
[2017-03-20] MEDS: SODIUM CHLOR 0.45% 1000 ML INJ 1,000 ML IV SCH (09:02)
[2017-03-20] MEDS ORDERED: SODIUM CHLOR 0.45% 1000 ML INJ 1,000 ML IV SCH (09:30)
--- NOTE | 2017-03-20 10:57 | HHI.PR ---
Subjective Remarks front end alignment specialist Notes: This is a 76-year-old female with a history of urinary retention with chronic Nagy catheter who [facility] with [facility]. She was per report lethargic in the emergency department. She was admitted to the hospital with a presumptive diagnosis of catheter associated urinary tract infection from her outside facility. In the emergency department she was given a dose of Zosyn IV, gentamicin IV, vancomycin IV. She was admitted in the hospitalist team placed her on vancomycin and Levaquin. Despite optimal therapy, she continued to be altered and became more hypotensive throughout the morning. She was rapid response for persistent hypotension and transferred to the intensive care unit for closer monitoring and management of her now presumed septic shock. Critical care medicine is consulted to evaluate and manage her shock as well as her multiorgan dysfunction including acute kidney injury and metabolic encephalopathy. Unfortunately, the patient is to encephalopathic to answer questions and no additional history can be obtained from the patient. 03/17 Patient is lying in bed in NAD. Afebrile. 03/18 No events overnight. Awake and alert. s/p cystoscopy and left ureteral stent placement yesterday. Afebrile. Hospitalist Notes: 03/19: Patient transferred to Hospitalist Group she has Hydronephrosis left with Ureteral Calculus left, status post Cystoscopy and insertion of intermediate card tender left ureteral stent, has UTI complicated due to Obstruction, has Klebsiella Pneumonia, Pseudomonas Aeruginosa, Sepsis secondary to Klebsiella UTI resistant to Levaquin, Sepsis Shock resolved, On Azactam, Discontinued Levaquin and Flagyl by ID specialist. 03/20: Seen in her bedroom in the presence of nurse Miss Adamsie teodora, patient stable, no complaint okay from nephrology specialist standpoint for transfer to Medical floor, she may had suffered ATN due to sepsis, Discontinued IV fluids, no nausea, vomit or diarrhea. Objective Vital Signs Date Time Temp Pulse Resp B/P (MAP) Pulse Ox O2 Delivery O2 Flow Rate FiO2 03/20/17 10:01 15 03/20/17 10:00 80 03/20/17 09:02 79 18 122/79 (93) 96 03/20/17 09:00 82 25 95 03/20/17 08:48 96 21 03/20/17 08:01 81 18 128/69 (88) 94 03/20/17 08:00 98.0 80 22 95 03/20/17 08:00 80 03/20/17 07:01 75 18 122/59 (80) 94 03/20/17 07:00 77 18 94 03/20/17 06:00 75 21 150/60 (90) 94 03/20/17 06:00 76 03/20/17 05:00 73 19 136/61 (86) 93 03/20/17 04:00 79 03/20/17 04:00 97.8 71 16 147/60 (89) 96 03/20/17 02:00 84 03/20/17 00:00 84 03/20/17 00:00 97.7 89 22 157/76 (103) 93 03/19/17 22:00 77 03/19/17 20:23 96 21 03/19/17 20:00 77 03/19/17 20:00 97.6 74 24 129/76 (93) 98 03/19/17 18:00 77 03/19/17 16:00 76 03/19/17 16:00 99.1 76 21 170/77 (108) 93 03/19/17 14:00 77 03/19/17 12:00 78 03/19/17 12:00 99.1 78 18 180/82 (114) 95 I/O 03/19/17 03/19/17 03/19/17 03/20/17 03/20/17 03/20/17 07:00 15:00 23:00 07:00 15:00 23:00 Intake Total 1200 ml 1291 ml 1100 ml 367 ml Output Total 2300 ml 3225 ml 1650 ml 1000 ml Balance -1100 ml -1934 ml -550 ml -633 ml Intake Oral 250 ml 300 ml 250 ml IV Total 950 ml 991 ml 850 ml 367 ml Output Urine Total 2300 ml 3225 ml 1650 ml 1000 ml Result Diagram: 03/19/17 0400 03/19/17 0400 Imaging Last Impressions Chest X-Ray 03/17/17 0000 Signed Impressions: Service Date/Time: Friday, March 17, 2017 02:24 - CONCLUSION: Left IJ central line distal tip in the SVC. No pneumothorax is visualized. Remberto Cooper MD Abdomen/Pelvis CT 03/16/17 0000 Signed Impressions: Service Date/Time: February 20:38 - CONCLUSION: 1. Numerous calcifications seen in the kidneys bilaterally. On the left side there are calcifications seen at the left UPJ/proximal ureter concerning for some obstruction at the left collecting system. 2. Generalized atrophy at the right kidney with a prominent staghorn calculus seen at the right renal collecting system. 3. A moderate amount of stool seen throughout the colon. There are colonic diverticula. 4. Mild distension of much of the small bowel measuring up to 3.5 cm. This is nonspecific. 5. Normal free fluid in the left paracolic gutter region. The cause of this is not clearly identified. 6. Chronic change at the proximal femur and hip regions bilaterally. This is a longstanding issue. 7. Left lower lobe consolidation/pneumonia. Remberto Ashford MD Procedures s/p cystoscopy and left ureteral stent placement 03/17 Other Results Laboratory Tests Test 03/16/17 01:10 03/16/17 14:15 03/16/17 14:30 03/17/17 07:51 Urine WBC Clumps MANY Urine Squamous Epithelial Cells 1 /hpf Urine Transitional Epithelial Cells <1 /hpf Urine Renal Epithelial Cells <1 /hpf Nasal Screen MRSA (PCR) MRSA NOT DETECTED Urine Color LIGHT-YELLOW Urine Turbidity HAZY Urine pH 6.0 Urine Specific [place] 1.007 Urine Protein TRACE mg/dL Urine Glucose (UA) NEG mg/dL Urine Ketones NEG mg/dL Urine Occult Blood SMALL Urine Nitrite NEG Urine Bilirubin NEG Urine Urobilinogen LESS THAN 2.0 MG/DL Urine Leukocyte Esterase LARGE Urine RBC 6 /hpf Urine WBC 63 /hpf Urine Amorphous Sediment RARE Urine Bacteria MANY /hpf Microscopic Urinalysis Comment CATH-CULTURE IND Lactic Acid Level 0.7 mmol/L Test 03/18/17 04:20 03/19/17 04:00 Protein Corrected Calcium 7.7 MG/DL Blood Urea Nitrogen 43 MG/DL 40 MG/DL Creatinine 2.26 MG/DL 2.46 MG/DL Random Glucose 86 MG/DL 105 MG/DL Total Protein 5.7 GM/DL Albumin 2.1 GM/DL Calcium Level 7.0 MG/DL 8.0 MG/DL Alkaline Phosphatase 131 U/L Aspartate Amino Transf (AST/SGOT) 13 U/L Alanine Aminotransferase (ALT/SGPT) 18 U/L Total Bilirubin 0.2 MG/DL Sodium Level 146 MEQ/L 143 MEQ/L Potassium Level 4.1 MEQ/L 4.2 MEQ/L Chloride Level 115 MEQ/L 111 MEQ/L Carbon Dioxide Level 20.0 MEQ/L 22.9 MEQ/L White Blood Count 8.7 TH/MM3 Red Blood Count 2.85 MIL/MM3 Hemoglobin 8.6 GM/DL Hematocrit 26.7 % Mean Corpuscular Volume 93.6 FL Mean Corpuscular Hemoglobin 30.2 PG Mean Corpuscular Hemoglobin Concent 32.3 % Red Cell Distribution Width 15.6 % Platelet Count 154 TH/MM3 Mean Platelet Volume 8.3 FL Neutrophils (%) (Auto) 79.6 % Lymphocytes (%) (Auto) 10.4 % Monocytes (%) (Auto) 5.1 % Eosinophils (%) (Auto) 4.5 % Basophils (%) (Auto) 0.4 % Neutrophils # (Auto) 6.9 TH/MM3 Lymphocytes # (Auto) 0.9 TH/MM3 Monocytes # (Auto) 0.4 TH/MM3 Eosinophils # (Auto) 0.4 TH/MM3 Basophils # (Auto) 0.0 TH/MM3 CBC Comment DIFF FINAL Differential Comment Anion Gap 9 MEQ/L Estimat Glomerular Filtration Rate 19 ML/MIN Objective Remarks GENERAL: Obesity SKIN: Warm and dry. HEAD: Normocephalic. EYES: No scleral icterus. No injection or drainage. NECK: Supple, trachea midline. No JVD or lymphadenopathy. CARDIOVASCULAR: Regular rate and rhythm without murmurs, gallops, or rubs. RESPIRATORY: Breath sounds equal bilaterally. No accessory muscle use. GASTROINTESTINAL: Abdomen soft, non-tender, nondistended. MUSCULOSKELETAL: No cyanosis, or edema. Neuro: Awake and alert Medications and IVs Current Medications Medications (Trade) Dose Ordered Sig/Marni Route Start Time Stop Time Status Last Admin (NS Flush) 2 ml UNSCH PRN IV FLUSH 03/16/17 02:15 (NS Flush) 2 ml BID IV FLUSH 03/16/17 09:00 03/20/17 08:38 (Narcan Inj) 0.4 mg UNSCH PRN IV 03/16/17 02:15 (Atrovent Neb) 0.5 mg Q6HR NEB NEB 03/16/17 10:00 03/20/17 08:46 (Atrovent Neb) 0.5 mg Q2HR NEB PRN NEB 03/16/17 04:30 (Colace) 100 mg TID PO 03/16/17 09:00 03/20/17 08:39 (Ferrous Sulfate) 325 mg DAILY PO 03/16/17 09:00 03/20/17 08:39 ([place] 10-325 Mg) 1 tab Q6H PRN PO 03/16/17 04:45 03/20/17 09:01 (Protonix) 40 mg DAILY PO 03/16/17 09:00 03/20/17 08:39 (Heparin Inj) 5,000 units Q8HR SQ 03/16/17 06:00 03/20/17 06:14 (D50w (Vial) Inj) 25 ml UNSCH PRN IV PUSH 03/16/17 15:00 (NovoLIN R SUPPLEMENTAL SCALE) 1 Q6HR SQ 03/16/17 18:00 Aztreonam 1000 mg/ Sodium Chloride 100 ml @ 200 mls/hr Q8H IV 03/16/17 17:00 03/20/17 08:39 Miscellaneous Information Patient in critical care unit? Ass... Q361D .XX 03/16/17 21:15 03/16/17 21:15 (Chlorhexidine 2% Cloth) 3 pack DAILY@04 TOPICAL 03/17/17 04:00 03/21/17 04:01 03/17/17 00:39 (Chlorhexidine 2% Cloth) 3 pack UNSCH PRN TOPICAL 03/16/17 21:15 03/21/17 21:01 (Brethine Inj) 1 mg UNSCH PRN SQ 03/17/17 02:30 (Lopressor) 25 mg Q12HR PO 03/19/17 01:00 03/20/17 08:39 (Catapres) 0.1 mg Q6H PRN PO 03/19/17 13:00 03/19/17 16:11 (Zofran Inj) 4 mg Q4HR PRN IV PUSH 03/19/17 17:00 03/20/17 08:39 A/P Assessment and Plan 1. Respiratory Insufficiency Bronchodilator and oxygen to keep oxygen saturation over 92%. Stable 2. Septic Shock/Severe Sepsis/Gram Negative Bacteremia/Leukocytosis BC 03/16 GNR, BC 03/17: NGTD UC 03/16: GNR, pseudomonas ID is following 3. Calcifications left UPJ/ureter, 4. Metabolic encephalopathy Improved. 5. Acute Kidney injury Nephrology specialist following. Status post Cystoscopy and left ureteral stent placement 03/17 patient with Hydronephrosis, has Klebsiella UTI resistant to Levaquin, Sepsis Shock resolved, On Azactam, Discontinued Levaquin and Flagyl by ID specialist. worsening Creatinine probable ATN. GI/DVT prophylaxis - on Protonix and Heparin SQ respectively Lines: Left IJ CVP placed 03/17, Discussed with patient and nurse Miss Rosie lou to transfer to medical floor. Discharge Planning Once cleared by Specialists. Michael Garcia MD Mar 20, 2017 10:57
--- NOTE | 2017-03-20 10:58 | HHI.NPPN ---
Subjective Renal Failure: Chronic, Acute Interval History she is non oliguric. Good oral intake. Creatinine is higher. Review of Systems General Constitutional: Fatigue Objective Data Data 03/20/17 03/21/17 19:00 07:00 Intake Total 367 ml Output Total 1000 ml Balance -633 ml IV Total 367 ml Output Urine Total 1000 ml Vital Signs Date Time Temp Pulse Resp B/P (MAP) Pulse Ox O2 Delivery O2 Flow Rate FiO2 03/20/17 10:01 15 03/20/17 10:00 80 03/20/17 09:02 79 18 122/79 (93) 96 03/20/17 09:00 82 25 95 03/20/17 08:48 96 21 03/20/17 08:01 81 18 128/69 (88) 94 03/20/17 08:00 98.0 80 22 95 03/20/17 08:00 80 03/20/17 07:01 75 18 122/59 (80) 94 03/20/17 07:00 77 18 94 03/20/17 06:00 75 21 150/60 (90) 94 03/20/17 06:00 76 03/20/17 05:00 73 19 136/61 (86) 93 03/20/17 04:00 79 03/20/17 04:00 97.8 71 16 147/60 (89) 96 03/20/17 02:00 84 03/20/17 00:00 84 03/20/17 00:00 97.7 89 22 157/76 (103) 93 03/19/17 22:00 77 03/19/17 20:23 96 21 03/19/17 20:00 77 03/19/17 20:00 97.6 74 24 129/76 (93) 98 03/19/17 18:00 77 03/19/17 16:00 76 03/19/17 16:00 99.1 76 21 170/77 (108) 93 03/19/17 14:00 77 03/19/17 12:00 78 03/19/17 12:00 99.1 78 18 180/82 (114) 95 -: 03/19/17 0400 03/19/17 0400 Tubes & Lines: Nagy Tubes & Lines Comment TLC left IJ Physical Exam General Appearance: Well Nourished, No Acute Distress, Comfortable Eyes Eye Exam: Pupils Equal Throat Throat Exam: Oral Mucosa [place] & Moist Pulmonary Resp Exam: Clear Bilaterally, Breath Sounds Equal Cardiology CV Exam: Regular, Normal Sinus Rhythm Gastrointestinal/Abdomen GI Exam: Soft, Non-Tender Genitourinary Exam: Clear Urine Musculoskeletal MS Exam: Joints Intact, Atrophy, Unable to Ambulate Integumentary Skin Exam: Clear, Warm, Dry, Intact Neurologic Neuro Exam: Alert, Awake, Oriented, Speech Clear Psychiatric Psych Exam: Appropriate Responses Assessment/Plan Discussed Condition With: Patient Assessment Summary: WHIT/Acute Renal Failure Problem List: (1) Acute renal failure ICD Codes: N17.9 - Acute kidney failure, unspecified Plan: Likely suffered ATN due to sepsis, also had stone causing left sided hydronephrosis. s/p left ureteral stent placement. Discontinue IVF. Avoid nephrotoxic agents. Encourage oral intake. Monitor urine output and renal function. (2) Severe sepsis ICD Codes: A41.9 - Sepsis, unspecified organism; R65.20 - Severe sepsis without septic shock Status: Acute Plan: BC + x 4, GNR, source UTI (Klebsiella) has been evaluated by ID Patient is on Aztreonam. Sloan Chau MD Mar 20, 2017 10:58
[2017-03-21] VITALS (10 sets, daily range): BP systolic 151–190; BP diastolic 71–84; PULSE 73–92; RESP 16–20; TEMP 97.6–99; O2SAT 92–97
[2017-03-21] MEDS: AZTREONAM INJ 1,000 MG in SODIUM CHLORIDE 0.9% INJ 100 ML IV SCH ×3 (01:48→17:57)
[2017-03-21] MEDS: RESP: IPRATROPIUM 0.5 MG/2.5 ML NEB NEB SCH ×4 (03:05→21:03)
[2017-03-21] MEDS: CHLORHEXIDINE GLUCONATE 2 % 1 PACK (2 CLOTHS)(taper/protocol) TOPICAL SCH (03:37)
[2017-03-21] MEDS: INSULIN NovoLIN REGULAR SUPPLEMENTAL SCALE SQ SCH ×5 (04:48→23:06)
[2017-03-21] MEDS: ACETAMINOPHEN/HYDROcodone 325 MG/10 MG TAB PO PRN ×3 (04:48→21:15)
[2017-03-21] MEDS: HEPARIN SODIUM - SQ 10,000 UNITS/ML VIAL SQ SCH ×3 (04:48→21:15)
[2017-03-21] MEDS: FERROUS SULFATE 325 MG (65 MG ELEMENTAL IRON) TAB PO SCH (09:04)
[2017-03-21] MEDS: DOCUSATE SODIUM 100 MG CAP PO SCH ×3 (09:04→17:57)
[2017-03-21] MEDS: SODIUM CHLORIDE 0.9% FLUSH 10 ML FLUSH IV FLUSH SCH ×2 (09:05→21:00)
[2017-03-21] MEDS: PANTOPRAZOLE SOD 40 MG DELAYED RELEASE TAB PO SCH (09:05)
[2017-03-21] MEDS: METOPROLOL TARTRATE 25 MG TAB PO SCH ×2 (09:05→21:15)
--- NOTE | 2017-03-21 09:48 | HHI.NPPN ---
Subjective Renal Failure: Chronic, Acute Interval History patient is doing well. No specific complaints. Labs are pending today. Review of Systems General Constitutional: Fatigue Objective Data Data Vital Signs Date Time Temp Pulse Resp B/P (MAP) Pulse Ox O2 Delivery O2 Flow Rate FiO2 03/21/17 09:32 97 03/21/17 08:00 97.6 87 18 151/82 (105) 94 03/21/17 04:42 98.9 73 16 165/79 (107) 93 03/21/17 00:18 99.0 92 16 162/77 (105) 95 03/20/17 22:28 94 03/20/17 19:22 Room Air 03/20/17 19:12 98.6 74 16 148/80 (102) 93 03/20/17 18:04 16 03/20/17 16:00 71 03/20/17 16:00 99.0 71 15 183/90 (121) 93 03/20/17 12:00 73 03/20/17 12:00 99.2 76 16 155/72 (99) 90 03/20/17 11:00 99 26 03/20/17 10:03 81 18 175/82 (113) 97 03/20/17 10:01 85 20 193/86 (121) 98 03/20/17 10:00 80 03/20/17 10:00 80 19 95 -: 03/19/17 0400 03/19/17 0400 Tubes & Lines: Nagy Tubes & Lines Comment TLC left IJ Physical Exam General Appearance: Well Nourished, No Acute Distress, Comfortable Eyes Eye Exam: Pupils Equal Throat Throat Exam: Oral Mucosa [place] & Moist Pulmonary Resp Exam: Clear Bilaterally, Breath Sounds Equal Cardiology CV Exam: Regular, Normal Sinus Rhythm Gastrointestinal/Abdomen GI Exam: Soft, Non-Tender Genitourinary Exam: Clear Urine Musculoskeletal MS Exam: Joints Intact, Atrophy Integumentary Skin Exam: Clear, Warm, Dry, Intact Neurologic Neuro Exam: Alert, Awake, Oriented, Speech Clear Psychiatric Psych Exam: Appropriate Responses Assessment/Plan Discussed Condition With: Patient Assessment Summary: WHIT/Acute Renal Failure Problem List: (1) Acute renal failure ICD Codes: N17.9 - Acute kidney failure, unspecified Plan: Likely suffered ATN due to sepsis, also had stone causing left sided hydronephrosis. s/p left ureteral stent placement. Avoid nephrotoxic agents. Encourage oral intake. Monitor urine output and renal function. (2) Severe sepsis ICD Codes: A41.9 - Sepsis, unspecified organism; R65.20 - Severe sepsis without septic shock Status: Acute Plan: BC + x 4, GNR, source UTI (Klebsiella) has been evaluated by ID Patient is on Aztreonam. Sloan Chau MD Mar 21, 2017 09:48
[2017-03-21 09:50] LABS: BICARBONATE 25.2 MEQ/L (21.0-32.0); POTASSIUM 3.7 MEQ/L (3.5-5.1)
--- NOTE | 2017-03-21 10:13 | HHI.PR ---
Subjective Remarks animal control specialist Notes: This is a 76-year-old female with a history of urinary retention with chronic Nagy catheter who was brought in on 03/15 from her [facility] facility with fever. She was per report lethargic in the emergency department. She was admitted to the hospital with a presumptive diagnosis of catheter associated urinary tract infection from her outside facility. In the emergency department she was given a dose of Zosyn IV, gentamicin IV, vancomycin IV. She was admitted in the hospitalist team placed her on vancomycin and Levaquin. Despite optimal therapy, she continued to be altered and became more hypotensive throughout the morning. She was rapid response for persistent hypotension and transferred to the intensive care unit for closer monitoring and management of her now presumed septic shock. Critical care medicine is consulted to evaluate and manage her shock as well as her multiorgan dysfunction including acute kidney injury and metabolic encephalopathy. Unfortunately, the patient is to encephalopathic to answer questions and no additional history can be obtained from the patient. 03/17 Patient is lying in bed in NAD. Afebrile. 03/18 No events overnight. Awake and alert. s/p cystoscopy and left ureteral stent placement yesterday. Afebrile. Hospitalist Notes: 03/19: Patient transferred to Hospitalist Group she has Hydronephrosis left with Ureteral Calculus left, status post Cystoscopy and insertion of terminal carman left ureteral stent, has UTI complicated due to Obstruction, has Klebsiella Pneumonia, Pseudomonas Aeruginosa, Sepsis secondary to Klebsiella UTI resistant to Levaquin, Sepsis Shock resolved, On Azactam, Discontinued Levaquin and Flagyl by ID specialist. 03/20: Seen in her bedroom in the presence of nurse Miss Adamsie teodora, patient stable, no complaint okay from nephrology specialist standpoint for transfer to Medical floor, she may had suffered ATN due to sepsis, Discontinued IV fluids. 03/21: Patient stable no complaint at this time, no nausea, vomit or diarrhea. not yet cleared for discharge. Objective Vital Signs Date Time Temp Pulse Resp B/P (MAP) Pulse Ox O2 Delivery O2 Flow Rate FiO2 03/21/17 09:32 97 03/21/17 08:00 97.6 87 18 151/82 (105) 94 03/21/17 04:42 98.9 73 16 165/79 (107) 93 03/21/17 00:18 99.0 92 16 162/77 (105) 95 03/20/17 22:28 94 03/20/17 19:22 Room Air 03/20/17 19:12 98.6 74 16 148/80 (102) 93 03/20/17 18:04 16 03/20/17 16:00 71 03/20/17 16:00 99.0 71 15 183/90 (121) 93 03/20/17 12:00 73 03/20/17 12:00 99.2 76 16 155/72 (99) 90 03/20/17 11:00 99 26 I/O 03/20/17 03/20/17 03/20/17 03/21/17 03/21/17 03/21/17 07:00 15:00 23:00 07:00 15:00 23:00 Intake Total 1100 ml 767 ml 400 ml 460 ml Output Total 1650 ml 1925 ml 800 ml 1850 ml Balance -550 ml -1158 ml -400 ml -1390 ml Intake Oral 250 ml 400 ml 300 ml 360 ml IV Total 850 ml 367 ml 100 ml 100 ml Output Urine Total 1650 ml 1925 ml 800 ml 1850 ml # Bowel Movements 0 Result Diagram: 03/19/17 0400 03/21/17 0805 Imaging Last Impressions Chest X-Ray 03/17/17 0000 Signed Impressions: Service Date/Time: Friday, March 17, 2017 02:24 - CONCLUSION: Left IJ central line distal tip in the SVC. No pneumothorax is visualized. Remberto Cooper MD Abdomen/Pelvis CT 03/16/17 0000 Signed Impressions: Service Date/Time: February 20:38 - CONCLUSION: 1. Numerous calcifications seen in the kidneys bilaterally. On the left side there are calcifications seen at the left UPJ/proximal ureter concerning for some obstruction at the left collecting system. 2. Generalized atrophy at the right kidney with a prominent staghorn calculus seen at the right renal collecting system. 3. A moderate amount of stool seen throughout the colon. There are colonic diverticula. 4. Mild distension of much of the small bowel measuring up to 3.5 cm. This is nonspecific. 5. Normal free fluid in the left paracolic gutter region. The cause of this is not clearly identified. 6. Chronic change at the proximal femur and hip regions bilaterally. This is a longstanding issue. 7. Left lower lobe consolidation/pneumonia. Remberto Ashford MD Procedures s/p cystoscopy and left ureteral stent placement 03/17 Other Results Laboratory Tests Test 03/16/17 01:10 03/16/17 14:15 03/16/17 14:30 03/17/17 07:51 Urine WBC Clumps MANY Urine Squamous Epithelial Cells 1 /hpf Urine Transitional Epithelial Cells <1 /hpf Urine Renal Epithelial Cells <1 /hpf Nasal Screen MRSA (PCR) MRSA NOT DETECTED Urine Color LIGHT-YELLOW Urine Turbidity HAZY Urine pH 6.0 Urine Specific [place] 1.007 Urine Protein TRACE mg/dL Urine Glucose (UA) NEG mg/dL Urine Ketones NEG mg/dL Urine Occult Blood SMALL Urine Nitrite NEG Urine Bilirubin NEG Urine Urobilinogen LESS THAN 2.0 MG/DL Urine Leukocyte Esterase LARGE Urine RBC 6 /hpf Urine WBC 63 /hpf Urine Amorphous Sediment RARE Urine Bacteria MANY /hpf Microscopic Urinalysis Comment CATH-CULTURE IND Lactic Acid Level 0.7 mmol/L Test 03/18/17 04:20 03/19/17 04:00 03/21/17 08:05 Protein Corrected Calcium 7.7 MG/DL Blood Urea Nitrogen 43 MG/DL 36 MG/DL Creatinine 2.26 MG/DL 2.60 MG/DL Random Glucose 86 MG/DL 106 MG/DL Total Protein 5.7 GM/DL Albumin 2.1 GM/DL 2.2 GM/DL Calcium Level 7.0 MG/DL 8.6 MG/DL Alkaline Phosphatase 131 U/L Aspartate Amino Transf (AST/SGOT) 13 U/L Alanine Aminotransferase (ALT/SGPT) 18 U/L Total Bilirubin 0.2 MG/DL Sodium Level 146 MEQ/L 140 MEQ/L Potassium Level 4.1 MEQ/L 3.7 MEQ/L Chloride Level 115 MEQ/L 109 MEQ/L Carbon Dioxide Level 20.0 MEQ/L 25.2 MEQ/L White Blood Count 8.7 TH/MM3 Red Blood Count 2.85 MIL/MM3 Hemoglobin 8.6 GM/DL Hematocrit 26.7 % Mean Corpuscular Volume 93.6 FL Mean Corpuscular Hemoglobin 30.2 PG Mean Corpuscular Hemoglobin Concent 32.3 % Red Cell Distribution Width 15.6 % Platelet Count 154 TH/MM3 Mean Platelet Volume 8.3 FL Neutrophils (%) (Auto) 79.6 % Lymphocytes (%) (Auto) 10.4 % Monocytes (%) (Auto) 5.1 % Eosinophils (%) (Auto) 4.5 % Basophils (%) (Auto) 0.4 % Neutrophils # (Auto) 6.9 TH/MM3 Lymphocytes # (Auto) 0.9 TH/MM3 Monocytes # (Auto) 0.4 TH/MM3 Eosinophils # (Auto) 0.4 TH/MM3 Basophils # (Auto) 0.0 TH/MM3 CBC Comment DIFF FINAL Differential Comment Phosphorus Level 3.5 MG/DL Anion Gap 6 MEQ/L Estimat Glomerular Filtration Rate 18 ML/MIN Objective Remarks GENERAL: Obesity SKIN: Warm and dry. HEAD: Normocephalic. EYES: No scleral icterus. No injection or drainage. NECK: Supple, trachea midline. No JVD or lymphadenopathy. CARDIOVASCULAR: Regular rate and rhythm without murmurs, gallops, or rubs. RESPIRATORY: Breath sounds equal bilaterally. No accessory muscle use. GASTROINTESTINAL: Abdomen soft, non-tender, nondistended. MUSCULOSKELETAL: No cyanosis, or edema. Neuro: Awake and alert Medications and IVs Current Medications Medications (Trade) Dose Ordered Sig/Marni Route Start Time Stop Time Status Last Admin (NS Flush) 2 ml UNSCH PRN IV FLUSH 03/16/17 02:15 (NS Flush) 2 ml BID IV FLUSH 03/16/17 09:00 03/21/17 09:05 (Narcan Inj) 0.4 mg UNSCH PRN IV 03/16/17 02:15 (Atrovent Neb) 0.5 mg Q6HR NEB NEB 03/16/17 10:00 03/21/17 09:31 (Atrovent Neb) 0.5 mg Q2HR NEB PRN NEB 03/16/17 04:30 (Colace) 100 mg TID PO 03/16/17 09:00 03/21/17 09:04 (Ferrous Sulfate) 325 mg DAILY PO 03/16/17 09:00 03/21/17 09:04 ([place] 10-325 Mg) 1 tab Q6H PRN PO 03/16/17 04:45 03/21/17 04:48 (Protonix) 40 mg DAILY PO 03/16/17 09:00 03/21/17 09:05 (Heparin Inj) 5,000 units Q8HR SQ 03/16/17 06:00 03/21/17 04:48 (D50w (Vial) Inj) 25 ml UNSCH PRN IV PUSH 03/16/17 15:00 (NovoLIN R SUPPLEMENTAL SCALE) 1 Q6HR SQ 03/16/17 18:00 Aztreonam 1000 mg/ Sodium Chloride 100 ml @ 200 mls/hr Q8H IV 03/16/17 17:00 03/21/17 09:05 Miscellaneous Information Patient in critical care unit? Ass... Q361D .XX 03/16/17 21:15 03/16/17 21:15 (Chlorhexidine 2% Cloth) 3 pack UNSCH PRN TOPICAL 03/16/17 21:15 03/21/17 21:01 (Brethine Inj) 1 mg UNSCH PRN SQ 03/17/17 02:30 (Lopressor) 25 mg Q12HR PO 03/19/17 01:00 03/21/17 09:05 (Catapres) 0.1 mg Q6H PRN PO 03/19/17 13:00 03/19/17 16:11 (Zofran Inj) 4 mg Q4HR PRN IV PUSH 03/19/17 17:00 03/20/17 08:39 A/P Assessment and Plan 1. Respiratory Insufficiency Bronchodilator and oxygen to keep oxygen saturation over 92%. Stable 2. Septic Shock/Severe Sepsis/Gram Negative Bacteremia/Leukocytosis BC 03/16 GNR, BC 03/17: NGTD UC 03/16: GNR, pseudomonas ID is following and continue on Aztreonam. 3. Calcifications left UPJ/ureter, 4. Metabolic encephalopathy Improved. 5. Acute Kidney injury Nephrology specialist following. Status post Cystoscopy and left ureteral stent placement 03/17 patient with Hydronephrosis, has Klebsiella UTI resistant to Levaquin, Sepsis Shock resolved, On Azactam, Discontinued Levaquin and Flagyl by ID specialist. worsening Creatinine probable ATN. GI/DVT prophylaxis - on Protonix and Heparin SQ respectively Lines: Left IJ CVP placed 03/17, Discussed with patient no new concerns, wants to go home, all questions answered to the best of my abilities. Discharge Planning Once cleared by Specialists. Michael Garcia MD Mar 21, 2017 10:13
[2017-03-21] MEDS: cloNIDine HCL 0.1 MG TAB PO PRN (23:10)
[2017-03-22] VITALS (8 sets, daily range): BP systolic 126–186; BP diastolic 63–86; PULSE 65–86; RESP 16–19; TEMP 97.8–98.8; O2SAT 93–96
[2017-03-22] MEDS: AZTREONAM INJ 1,000 MG in SODIUM CHLORIDE 0.9% INJ 100 ML IV SCH ×3 (01:29→17:54)
[2017-03-22] MEDS: RESP: IPRATROPIUM 0.5 MG/2.5 ML NEB NEB SCH ×4 (05:11→21:04)
[2017-03-22] MEDS: HEPARIN SODIUM - SQ 10,000 UNITS/ML VIAL SQ SCH ×3 (06:00→21:03)
[2017-03-22] MEDS: INSULIN NovoLIN REGULAR SUPPLEMENTAL SCALE SQ SCH ×3 (06:00→18:00)
[2017-03-22 07:40] LABS: BICARBONATE 24.5 MEQ/L (21.0-32.0); POTASSIUM 3.7 MEQ/L (3.5-5.1)
--- NOTE | 2017-03-22 08:35 | HHI.PR ---
Subjective Remarks applications support specialist Notes: This is a 76-year-old female with a history of urinary retention with chronic Nagy catheter who was brought in on 03/15 from her alf facility with fever. She was per report lethargic in the emergency department. She was admitted to the hospital with a presumptive diagnosis of catheter associated urinary tract infection from her outside facility. In the emergency department she was given a dose of Zosyn IV, gentamicin IV, vancomycin IV. She was admitted in the hospitalist team placed her on vancomycin and Levaquin. Despite optimal therapy, she continued to be altered and became more hypotensive throughout the morning. She was rapid response for persistent hypotension and transferred to the intensive care unit for closer monitoring and management of her now presumed septic shock. Critical care medicine is consulted to evaluate and manage her shock as well as her multiorgan dysfunction including acute kidney injury and metabolic encephalopathy. Unfortunately, the patient is to encephalopathic to answer questions and no additional history can be obtained from the patient. 03/17 Patient is lying in bed in NAD. Afebrile. 03/18 No events overnight. Awake and alert. s/p cystoscopy and left ureteral stent placement yesterday. Afebrile. Hospitalist Notes: 03/19: Patient transferred to Hospitalist Group she has Hydronephrosis left with Ureteral Calculus left, status post Cystoscopy and insertion of oil heaterman left ureteral stent, has UTI complicated due to Obstruction, has Klebsiella Pneumonia, Pseudomonas Aeruginosa, Sepsis secondary to Klebsiella UTI resistant to Levaquin, Sepsis Shock resolved, On Azactam, Discontinued Levaquin and Flagyl by ID specialist. 03/20: Seen in her bedroom in the presence of nurse Miss Adamsie teodora, patient stable, no complaint okay from nephrology specialist standpoint for transfer to Medical floor, she may had suffered ATN due to sepsis, Discontinued IV fluids. 03/21: Stable not yet cleared by discharge by specialists 03/22: Nephrology specialist following, patient states she is eating and drinking well, encourage to continue to continue Azactam as per ID specialist. Objective Vital Signs Date Time Temp Pulse Resp B/P (MAP) Pulse Ox O2 Delivery O2 Flow Rate FiO2 03/22/17 05:11 93 03/22/17 04:42 98.2 71 16 169/81 (110) 96 03/21/17 23:07 98.8 83 16 190/71 (110) 92 03/21/17 21:35 Room Air 03/21/17 20:45 98.5 89 16 177/72 (107) 95 03/21/17 20:28 83 03/21/17 16:30 96 03/21/17 16:00 99.0 79 20 158/76 (103) 96 03/21/17 12:00 98.3 76 18 173/84 (113) 95 03/21/17 09:32 97 I/O 03/21/17 03/21/17 03/21/17 03/22/17 03/22/17 03/22/17 07:00 15:00 23:00 07:00 15:00 23:00 Intake Total 460 ml 820 ml 580 ml Output Total 1850 ml 2425 ml 1300 ml Balance -1390 ml -1605 ml -720 ml Intake Oral 360 ml 720 ml 480 ml IV Total 100 ml 100 ml 100 ml Output Urine Total 1850 ml 2425 ml 1300 ml # Bowel Movements 0 0 0 Result Diagram: 03/19/17 0400 03/22/17 0657 Imaging Last Impressions Chest X-Ray 03/17/17 0000 Signed Impressions: Service Date/Time: Friday, March 17, 2017 02:24 - CONCLUSION: Left IJ central line distal tip in the SVC. No pneumothorax is visualized. Remberto Cooper MD Abdomen/Pelvis CT 03/16/17 0000 Signed Impressions: Service Date/Time: February 20:38 - CONCLUSION: 1. Numerous calcifications seen in the kidneys bilaterally. On the left side there are calcifications seen at the left UPJ/proximal ureter concerning for some obstruction at the left collecting system. 2. Generalized atrophy at the right kidney with a prominent staghorn calculus seen at the right renal collecting system. 3. A moderate amount of stool seen throughout the colon. There are colonic diverticula. 4. Mild distension of much of the small bowel measuring up to 3.5 cm. This is nonspecific. 5. Normal free fluid in the left paracolic gutter region. The cause of this is not clearly identified. 6. Chronic change at the proximal femur and hip regions bilaterally. This is a longstanding issue. 7. Left lower lobe consolidation/pneumonia. Remberto Ashford MD Procedures s/p cystoscopy and left ureteral stent placement 03/17 Other Results Laboratory Tests Test 03/16/17 01:10 03/16/17 14:15 03/16/17 14:30 03/17/17 07:51 Urine WBC Clumps MANY Urine Squamous Epithelial Cells 1 /hpf Urine Transitional Epithelial Cells <1 /hpf Urine Renal Epithelial Cells <1 /hpf Nasal Screen MRSA (PCR) MRSA NOT DETECTED Urine Color LIGHT-YELLOW Urine Turbidity HAZY Urine pH 6.0 Urine Specific [place] 1.007 Urine Protein TRACE mg/dL Urine Glucose (UA) NEG mg/dL Urine Ketones NEG mg/dL Urine Occult Blood SMALL Urine Nitrite NEG Urine Bilirubin NEG Urine Urobilinogen LESS THAN 2.0 MG/DL Urine Leukocyte Esterase LARGE Urine RBC 6 /hpf Urine WBC 63 /hpf Urine Amorphous Sediment RARE Urine Bacteria MANY /hpf Microscopic Urinalysis Comment CATH-CULTURE IND Lactic Acid Level 0.7 mmol/L Test 03/18/17 04:20 03/19/17 04:00 03/22/17 06:57 Protein Corrected Calcium 7.7 MG/DL Blood Urea Nitrogen 43 MG/DL 34 MG/DL Creatinine 2.26 MG/DL 2.52 MG/DL Random Glucose 86 MG/DL 112 MG/DL Total Protein 5.7 GM/DL Albumin 2.1 GM/DL 2.4 GM/DL Calcium Level 7.0 MG/DL 9.1 MG/DL Alkaline Phosphatase 131 U/L Aspartate Amino Transf (AST/SGOT) 13 U/L Alanine Aminotransferase (ALT/SGPT) 18 U/L Total Bilirubin 0.2 MG/DL Sodium Level 146 MEQ/L 141 MEQ/L Potassium Level 4.1 MEQ/L 3.7 MEQ/L Chloride Level 115 MEQ/L 108 MEQ/L Carbon Dioxide Level 20.0 MEQ/L 24.5 MEQ/L White Blood Count 8.7 TH/MM3 Red Blood Count 2.85 MIL/MM3 Hemoglobin 8.6 GM/DL Hematocrit 26.7 % Mean Corpuscular Volume 93.6 FL Mean Corpuscular Hemoglobin 30.2 PG Mean Corpuscular Hemoglobin Concent 32.3 % Red Cell Distribution Width 15.6 % Platelet Count 154 TH/MM3 Mean Platelet Volume 8.3 FL Neutrophils (%) (Auto) 79.6 % Lymphocytes (%) (Auto) 10.4 % Monocytes (%) (Auto) 5.1 % Eosinophils (%) (Auto) 4.5 % Basophils (%) (Auto) 0.4 % Neutrophils # (Auto) 6.9 TH/MM3 Lymphocytes # (Auto) 0.9 TH/MM3 Monocytes # (Auto) 0.4 TH/MM3 Eosinophils # (Auto) 0.4 TH/MM3 Basophils # (Auto) 0.0 TH/MM3 CBC Comment DIFF FINAL Differential Comment Phosphorus Level 3.3 MG/DL Anion Gap 9 MEQ/L Estimat Glomerular Filtration Rate 19 ML/MIN Objective Remarks GENERAL: Obesity SKIN: Warm and dry. HEAD: Normocephalic. EYES: No scleral icterus. No injection or drainage. NECK: Supple, trachea midline. No JVD or lymphadenopathy. CARDIOVASCULAR: Regular rate and rhythm without murmurs, gallops, or rubs. RESPIRATORY: Breath sounds equal bilaterally. No accessory muscle use. GASTROINTESTINAL: Abdomen soft, non-tender, nondistended. MUSCULOSKELETAL: No cyanosis, or edema. Neuro: Awake and alert Medications and IVs Current Medications Medications (Trade) Dose Ordered Sig/Marni Route Start Time Stop Time Status Last Admin (NS Flush) 2 ml UNSCH PRN IV FLUSH 03/16/17 02:15 (NS Flush) 2 ml BID IV FLUSH 03/16/17 09:00 03/21/17 21:00 (Narcan Inj) 0.4 mg UNSCH PRN IV 03/16/17 02:15 (Atrovent Neb) 0.5 mg Q6HR NEB NEB 03/16/17 10:00 03/22/17 05:11 (Atrovent Neb) 0.5 mg Q2HR NEB PRN NEB 03/16/17 04:30 (Colace) 100 mg TID PO 03/16/17 09:00 03/21/17 17:57 (Ferrous Sulfate) 325 mg DAILY PO 03/16/17 09:00 03/21/17 09:04 ([place] 10-325 Mg) 1 tab Q6H PRN PO 03/16/17 04:45 03/21/17 21:15 (Protonix) 40 mg DAILY PO 03/16/17 09:00 03/21/17 09:05 (Heparin Inj) 5,000 units Q8HR SQ 03/16/17 06:00 03/22/17 06:00 (D50w (Vial) Inj) 25 ml UNSCH PRN IV PUSH 03/16/17 15:00 (NovoLIN R SUPPLEMENTAL SCALE) 1 Q6HR SQ 03/16/17 18:00 Aztreonam 1000 mg/ Sodium Chloride 100 ml @ 200 mls/hr Q8H IV 03/16/17 17:00 03/22/17 01:29 Miscellaneous Information Patient in critical care unit? Ass... Q361D .XX 03/16/17 21:15 03/16/17 21:15 (Brethine Inj) 1 mg UNSCH PRN SQ 03/17/17 02:30 (Lopressor) 25 mg Q12HR PO 03/19/17 01:00 03/21/17 21:15 (Catapres) 0.1 mg Q6H PRN PO 03/19/17 13:00 03/21/17 23:10 (Zofran Inj) 4 mg Q4HR PRN IV PUSH 03/19/17 17:00 03/20/17 08:39 A/P Assessment and Plan 1. Respiratory Insufficiency Bronchodilator and oxygen to keep oxygen saturation over 92%. Stable 2. Septic Shock/Severe Sepsis/Gram Negative Bacteremia/Leukocytosis BC 03/16 GNR, BC 03/17: NGTD UC 03/16: GNR, pseudomonas ID is following and continue on Aztreonam. 3. Calcifications left UPJ/ureter, 4. Metabolic encephalopathy Improved. 5. Acute Kidney injury Nephrology specialist following. Status post Cystoscopy and left ureteral stent placement 03/17 patient with Hydronephrosis, has Klebsiella UTI resistant to Levaquin, Sepsis Shock resolved, On Azactam, Discontinued Levaquin and Flagyl by ID specialist. probable ATN has been stable since admission. GI/DVT prophylaxis - on Protonix and Heparin SQ respectively Lines: Left IJ CVP placed 03/17, Discussed with patient no new concerns, wants to go home, all questions answered to the best of my abilities. Discharge Planning Once cleared by Specialists. Michael Garcia MD Mar 22, 2017 08:35
[2017-03-22] MEDS: ACETAMINOPHEN/HYDROcodone 325 MG/10 MG TAB PO PRN ×2 (09:23→15:43)
[2017-03-22] MEDS: PANTOPRAZOLE SOD 40 MG DELAYED RELEASE TAB PO SCH (09:23)
[2017-03-22] MEDS: METOPROLOL TARTRATE 25 MG TAB PO SCH ×2 (09:23→21:04)
[2017-03-22] MEDS: DOCUSATE SODIUM 100 MG CAP PO SCH ×3 (09:23→18:00)
[2017-03-22] MEDS: FERROUS SULFATE 325 MG (65 MG ELEMENTAL IRON) TAB PO SCH (09:23)
[2017-03-22] MEDS: SODIUM CHLORIDE 0.9% FLUSH 10 ML FLUSH IV FLUSH SCH ×2 (09:24→21:04)
--- NOTE | 2017-03-22 15:31 | HHI.NPPN ---
Subjective Renal Failure: Chronic, Acute Interval History She is feeling well. Eating/drinking without difficulty. Renal function is better. (Erin Kam) Review of Systems General Constitutional: Fatigue (Erin Kam) Objective Data Data Vital Signs Date Time Temp Pulse Resp B/P (MAP) Pulse Ox O2 Delivery O2 Flow Rate FiO2 03/22/17 12:00 97.9 65 19 179/82 (114) 95 03/22/17 08:00 98.8 78 19 158/76 (103) 94 03/22/17 05:11 93 03/22/17 04:42 98.2 71 16 169/81 (110) 96 03/21/17 23:07 98.8 83 16 190/71 (110) 92 03/21/17 21:35 Room Air 03/21/17 20:45 98.5 89 16 177/72 (107) 95 03/21/17 20:28 83 03/21/17 16:30 96 03/21/17 16:00 99.0 79 20 158/76 (103) 96 (Erin Kam) -: 03/19/17 0400 03/22/17 0657 Imaging Last Impressions Chest X-Ray 03/17/17 0000 Signed Impressions: Service Date/Time: Friday, March 17, 2017 02:24 - CONCLUSION: Left IJ central line distal tip in the SVC. No pneumothorax is visualized. Remberto Cooper MD Abdomen/Pelvis CT 03/16/17 0000 Signed Impressions: Service Date/Time: February 20:38 - CONCLUSION: 1. Numerous calcifications seen in the kidneys bilaterally. On the left side there are calcifications seen at the left UPJ/proximal ureter concerning for some obstruction at the left collecting system. 2. Generalized atrophy at the right kidney with a prominent staghorn calculus seen at the right renal collecting system. 3. A moderate amount of stool seen throughout the colon. There are colonic diverticula. 4. Mild distension of much of the small bowel measuring up to 3.5 cm. This is nonspecific. 5. Normal free fluid in the left paracolic gutter region. The cause of this is not clearly identified. 6. Chronic change at the proximal femur and hip regions bilaterally. This is a longstanding issue. 7. Left lower lobe consolidation/pneumonia. Remberto Ashford MD Tubes & Lines: Mccarty Tubes & Lines Comment TLC left IJ (NeginErin B. DRAFTER MARINE) Physical Exam General Appearance: Well Developed, Well Nourished, No Acute Distress, Comfortable (NeginErin B. DRAFTER MARINE) Eyes Eye Exam: Pupils Equal (Negin,Erin B. DRAFTER MARINE) Throat Throat Exam: Oral Mucosa [place] & Moist (Negin,Erin B. DRAFTER MARINE) Pulmonary Resp Exam: Clear Bilaterally, Breath Sounds Equal (Negin,Erin B. DRAFTER MARINE) Cardiology CV Exam: Regular, Normal Sinus Rhythm (Negin,Erin B. DRAFTER MARINE) Gastrointestinal/Abdomen GI Exam: Soft, Non-Tender (NeginErin B. DRAFTER MARINE) Genitourinary Exam: Clear Urine (NeginErin B. DRAFTER MARINE) Musculoskeletal MS Exam: Joints Intact, Atrophy MS Remarks foot drop bilaterally (NeginErin B. DRAFTER MARINE) Integumentary Skin Exam: Clear, Warm, Dry, Intact (Negin,Erin B. DRAFTER MARINE) Extremeties Extremities Exam: No Edema, Pedal Pulses Palpable (Negin,Erin B. DRAFTER MARINE) Neurologic Neuro Exam: Alert, Awake, Oriented, Speech Clear (NeginErin B. DRAFTER MARINE) Psychiatric Psych Exam: Appropriate Responses (NeginErin B. DRAFTER MARINE) Assessment/Plan Discussed Condition With: Patient Assessment Summary: WHIT/Acute Renal Failure, Acute Tubular Necrosis Problem List: (1) Acute renal failure ICD Codes: N17.9 - Acute kidney failure, unspecified Plan: Likely suffered ATN due to sepsis, also had stone causing left sided hydronephrosis. s/p left ureteral stent placement with urology renal function has improved excellent urine output tolerating oral fluids, IVF not required Monitor urine output and renal function daily. avoid nephrotoxins (2) Severe sepsis ICD Codes: A41.9 - Sepsis, unspecified organism; R65.20 - Severe sepsis without septic shock Status: Acute Plan: BC + x 4, GNR, source UTI (Klebsiella) has been evaluated by ID Patient is on Aztreonam. she is afebrile, clinically improved of note she has a chronic mccarty catheter due to neurogenic bladder, immobility, previous retention (Erin Kam) Plan patient was seen and examined. Renal function has improved. Avoid nephrotoxic agents. Agree with above assessment and plan. (Sloan Chau MD) Erin Kam Mar 22, 2017 15:30 Sloan Chau MD Mar 22, 2017 22:34
--- NOTE | 2017-03-22 18:21 | HHI.IDPN ---
Subjective Subjective Remarks sp Cystoscopy and insertion of medical terminologist left ureteral stent on 03/[address] Marquez doing well afebrile creatinine slighlty improved WBC normal Antibiotics azzactam levaqiuinw Allergies: Coded Allergies: cephalexin (Verified Allergy, Unknown, 03/16/17) erythromycin base (Verified Allergy, Unknown, 03/16/17) shellfish derived (Verified Allergy, Unknown, 03/16/17) Objective . Vital Signs Date Time Temp Pulse Resp B/P (MAP) Pulse Ox O2 Delivery O2 Flow Rate FiO2 03/22/17 16:00 97.9 75 19 146/79 (101) 96 03/22/17 15:57 96 21 03/22/17 12:00 97.9 65 19 179/82 (114) 95 03/22/17 08:00 78 03/22/17 08:00 86 03/22/17 08:00 96 Room Air 2.00 21 03/22/17 08:00 98.8 78 19 158/76 (103) 94 03/22/17 05:11 93 03/22/17 04:42 98.2 71 16 169/81 (110) 96 03/21/17 23:07 98.8 83 16 190/71 (110) 92 03/21/17 21:35 Room Air 03/21/17 20:45 98.5 89 16 177/72 (107) 95 03/21/17 20:28 83 03/22/17 03/22/17 03/23/17 15:00 23:00 07:00 Intake Total 100 ml Balance 100 ml IV Total 100 ml . Laboratory Tests Test 03/21/17 08:05 03/22/17 06:57 Blood Urea Nitrogen 36 MG/DL 34 MG/DL Creatinine 2.60 MG/DL 2.52 MG/DL Random Glucose 106 MG/DL 112 MG/DL Albumin 2.2 GM/DL 2.4 GM/DL Calcium Level 8.6 MG/DL 9.1 MG/DL Phosphorus Level 3.5 MG/DL 3.3 MG/DL Sodium Level 140 MEQ/L 141 MEQ/L Potassium Level 3.7 MEQ/L 3.7 MEQ/L Chloride Level 109 MEQ/L 108 MEQ/L Carbon Dioxide Level 25.2 MEQ/L 24.5 MEQ/L Anion Gap 6 MEQ/L 9 MEQ/L Estimat Glomerular Filtration Rate 18 ML/MIN 19 ML/MIN Imaging Last Impressions Chest X-Ray 03/17/17 0000 Signed Impressions: Service Date/Time: Friday, March 17, 2017 02:24 - CONCLUSION: Left IJ central line distal tip in the SVC. No pneumothorax is visualized. Remberto Cooper MD Abdomen/Pelvis CT 03/16/17 0000 Signed Impressions: Service Date/Time: February 20:38 - CONCLUSION: 1. Numerous calcifications seen in the kidneys bilaterally. On the left side there are calcifications seen at the left UPJ/proximal ureter concerning for some obstruction at the left collecting system. 2. Generalized atrophy at the right kidney with a prominent staghorn calculus seen at the right renal collecting system. 3. A moderate amount of stool seen throughout the colon. There are colonic diverticula. 4. Mild distension of much of the small bowel measuring up to 3.5 cm. This is nonspecific. 5. Normal free fluid in the left paracolic gutter region. The cause of this is not clearly identified. 6. Chronic change at the proximal femur and hip regions bilaterally. This is a longstanding issue. 7. Left lower lobe consolidation/pneumonia. Remberto Ashford MD Physical Exam CONSTITUTIONAL/GENERAL: This is an adequately nourished patient, in no apparent distress. TUBES/LINES/DRAINS: SKIN: No jaundice, rashes, or lesions. CARDIOVASCULAR: Regular rate and rhythm with harsh 1-2 /5 holosystolic murmur on the base, no gallops, or rubs. No JVD. Peripheral pulses symmetric. RESPIRATORY/CHEST: Symmetric, unlabored respirations. Clear to auscultation. Breath sounds equal bilaterally. No wheezes, rales, or rhonchi. GASTROINTESTINAL: Abdomen soft, less tender to palpation LLQ mildly distended. No hepato-splenomegaly, or palpable masses. No guarding. Bowel sounds present. GENITOURINARY: Without palpable bladder distension. Nagy catheter in place with clear yellow urine MUSCULOSKELETAL: Extremities without clubbing, cyanosis, or edema. NEUROLOGICAL: Awake and alert. Non focal PSYCHIATRIC: No obvious anxiety/depression. no apparent hallucinations or other psychotic thought process. Assessment & Plan Remarks (1) Hydronephrosis, left (2) Ureteral calculus, left sp Cystoscopy and insertion of medical terminologist left ureteral stent UTI , complicated in the settings of obstruction Kleb pneumo. PSAE in urine Sepsis, Klebsiella 2/2 UTI R levaquine vs GI - WBC> 20K, temp 101.7, lactic acidosis Hypotension 2/2 sepsis -resolved Leukocytosis 2/2 sepsis - improving ARF slightly better ALlergic to cephalosporins -cont azactam x 2 weeks anticipate IV abx upon discharge (1 week) Anna De La Fuente MD Mar 22, 2017 18:21
[2017-03-22] MEDS: cloNIDine HCL 0.1 MG TAB PO PRN (21:04)
[2017-03-23] VITALS (9 sets, daily range): BP systolic 129–181; BP diastolic 62–78; PULSE 60–81; RESP 16–20; TEMP 97.3–98.4; O2SAT 93–98
[2017-03-23] MEDS: ACETAMINOPHEN/HYDROcodone 325 MG/10 MG TAB PO PRN ×4 (00:32→22:03)
[2017-03-23] MEDS: AZTREONAM INJ 1,000 MG in SODIUM CHLORIDE 0.9% INJ 100 ML IV SCH ×3 (00:32→16:15)
[2017-03-23] MEDS: RESP: IPRATROPIUM 0.5 MG/2.5 ML NEB NEB SCH ×4 (03:40→21:58)
[2017-03-23] MEDS: INSULIN NovoLIN REGULAR SUPPLEMENTAL SCALE SQ SCH ×5 (06:00→23:27)
[2017-03-23] MEDS: HEPARIN SODIUM - SQ 10,000 UNITS/ML VIAL SQ SCH ×3 (07:10→21:22)
[2017-03-23] MEDS: METOPROLOL TARTRATE 25 MG TAB PO SCH ×2 (08:16→20:53)
[2017-03-23] MEDS: DOCUSATE SODIUM 100 MG CAP PO SCH ×3 (08:16→16:14)
[2017-03-23] MEDS: PANTOPRAZOLE SOD 40 MG DELAYED RELEASE TAB PO SCH (08:16)
[2017-03-23] MEDS: FERROUS SULFATE 325 MG (65 MG ELEMENTAL IRON) TAB PO SCH (08:16)
[2017-03-23] MEDS: SODIUM CHLORIDE 0.9% FLUSH 10 ML FLUSH IV FLUSH SCH ×2 (08:16→20:53)
[2017-03-23 08:32] LABS: AUTOMATED NEUTROPHIL # 3.5 TH/MM3 (1.8-7.7); BASOPHIL # 0.1 TH/MM3 (0-0.2); BASOPHIL % 0.8 % (0.0-2.0); EOSINOPHIL # 0.5 TH/MM3 (0-0.4); EOSINOPHIL % 8.6 % (0.0-4.0); HEMATOCRIT 31.5 % (35.0-46.0); LYMPH % 22.2 % (9.0-44.0); LYMPHOCYTE # 1.4 TH/MM3 (1.0-4.8); MEAN CORPUSCULAR HEMOGLOBIN 29.4 PG (27.0-34.0); MEAN CORPUSCULAR HGB CONC 31.9 % (32.0-36.0); MONO % 11.5 % (0.0-8.0); NEUT % 56.9 % (16.0-70.0); PLATELET COUNT 289 TH/MM3 (150-450); RED BLOOD COUNT 3.42 MIL/MM3 (4.00-5.30); RED CELL DISTRIBUTION WIDTH 15.6 % (11.6-17.2); WHITE BLOOD COUNT 6.1 TH/MM3 (4.0-11.0)
[2017-03-23 08:39] LABS: HEMO FLAGS AUTO DIFF
[2017-03-23 09:00] LABS: BICARBONATE 25.2 MEQ/L (21.0-32.0); POTASSIUM 3.5 MEQ/L (3.5-5.1)
--- NOTE | 2017-03-23 09:14 | HHI.NPPN ---
Subjective Renal Failure: Chronic, Acute Interval History patient was seen and examined. Has wheezing. Renal function is better. Review of Systems General Constitutional: Fatigue Objective Data Data Vital Signs Date Time Temp Pulse Resp B/P (MAP) Pulse Ox O2 Delivery O2 Flow Rate FiO2 03/23/17 08:00 98.1 65 18 129/62 (84) 98 03/23/17 04:43 97.3 60 16 130/70 (90) 96 03/23/17 03:41 93 03/22/17 23:55 98.0 65 16 126/63 (84) 96 03/22/17 20:18 97.8 86 16 186/86 (119) 95 03/22/17 19:30 Room Air 03/22/17 16:00 97.9 75 19 146/79 (101) 96 03/22/17 15:57 96 21 03/22/17 12:00 97.9 65 19 179/82 (114) 95 -: 03/23/17 0800 03/23/17 0800 Tubes & Lines: Mccarty Tubes & Lines Comment TLC left IJ Physical Exam General Appearance: Well Developed, Well Nourished, No Acute Distress, Comfortable Eyes Eye Exam: Pupils Equal Throat Throat Exam: Oral Mucosa [place] & Moist Pulmonary Resp Exam: Clear Bilaterally, Breath Sounds Equal, Rhonchi Cardiology CV Exam: Regular, Normal Sinus Rhythm Gastrointestinal/Abdomen GI Exam: Soft, Non-Tender Genitourinary Exam: Clear Urine Musculoskeletal MS Exam: Joints Intact, Atrophy Integumentary Skin Exam: Clear, Warm, Dry, Intact Extremeties Extremities Exam: No Edema, Pedal Pulses Palpable Neurologic Neuro Exam: Alert, Awake, Oriented, Speech Clear Psychiatric Psych Exam: Appropriate Responses Assessment/Plan Discussed Condition With: Patient Assessment Summary: WHIT/Acute Renal Failure, Acute Tubular Necrosis Problem List: (1) Acute renal failure ICD Codes: N17.9 - Acute kidney failure, unspecified Plan: Likely suffered ATN due to sepsis, also had stone causing left sided hydronephrosis. s/p left ureteral stent placement with urology renal function has improved excellent urine output tolerating oral fluids, IVF not required Monitor urine output and renal function daily. avoid nephrotoxins (2) Severe sepsis ICD Codes: A41.9 - Sepsis, unspecified organism; R65.20 - Severe sepsis without septic shock Status: Acute Plan: BC + x 4, GNR, source UTI (Klebsiella) has been evaluated by ID Patient is on Aztreonam. she is afebrile, clinically improved of note she has a chronic mccarty catheter due to neurogenic bladder, immobility, previous retention Sloan Chau MD Mar 23, 2017 09:14
[2017-03-23 10:10] LABS: BANDS 8 % (0-6); BASOPHILS 2 % (0-2); EOSINOPHILS 6 % (0-4); MYELOCYTES 4 % (0-0); NEUTROPHIL # MANUAL DIFF 4.1 TH/MM3 (1.8-7.7); POLYS (SEG NEUTROPHILS) 55 % (16-70); WBC DIFF SAMPLE 100
[2017-03-23 10:11] LABS: PLATELET ESTIMATE SMEAR NORMAL (NORMAL); PLATELET MORPHOLOGY NORMAL (NORMAL); SCAN/DIFF FINAL DIFF MANUAL
--- NOTE | 2017-03-23 11:54 | HHI.PR ---
Subjective Remarks geospatial specialist Notes: This is a 76-year-old female with a history of urinary retention with chronic Nagy catheter who was brought in on 03/15 from her assisted facility with fever. She was per report lethargic in the emergency department. She was admitted to the hospital with a presumptive diagnosis of catheter associated urinary tract infection from her outside facility. In the emergency department she was given a dose of Zosyn IV, gentamicin IV, vancomycin IV. She was admitted in the hospitalist team placed her on vancomycin and Levaquin. Despite optimal therapy, she continued to be altered and became more hypotensive throughout the morning. She was rapid response for persistent hypotension and transferred to the intensive care unit for closer monitoring and management of her now presumed septic shock. Critical care medicine is consulted to evaluate and manage her shock as well as her multiorgan dysfunction including acute kidney injury and metabolic encephalopathy. Unfortunately, the patient is to encephalopathic to answer questions and no additional history can be obtained from the patient. 03/17 Patient is lying in bed in NAD. Afebrile. 03/18 No events overnight. Awake and alert. s/p cystoscopy and left ureteral stent placement yesterday. Afebrile. Hospitalist Notes: 03/19: Patient transferred to Hospitalist Group she has Hydronephrosis left with Ureteral Calculus left, status post Cystoscopy and insertion of shift supervisor melting left ureteral stent, has UTI complicated due to Obstruction, has Klebsiella Pneumonia, Pseudomonas Aeruginosa, Sepsis secondary to Klebsiella UTI resistant to Levaquin, Sepsis Shock resolved, On Azactam, Discontinued Levaquin and Flagyl by ID specialist. 03/20: Seen in her bedroom in the presence of nurse Miss Adamsie teodora, patient stable, no complaint okay from nephrology specialist standpoint for transfer to Medical floor, she may had suffered ATN due to sepsis, Discontinued IV fluids. 03/21: Stable not yet cleared by discharge by specialists 03/22: Nephrology specialist following, patient states she is eating and drinking well, encourage to continue to continue Azactam as per ID specialist. 03/23: Seen in her bedroom, no new issues, no complaint no nausea, vomit or diarrhea. Objective Vital Signs Date Time Temp Pulse Resp B/P (MAP) Pulse Ox O2 Delivery O2 Flow Rate FiO2 03/23/17 10:03 94 21 03/23/17 08:00 Room Air 03/23/17 08:00 98.1 65 18 129/62 (84) 98 03/23/17 08:00 60 03/23/17 04:43 97.3 60 16 130/70 (90) 96 03/23/17 03:41 93 03/22/17 23:55 98.0 65 16 126/63 (84) 96 03/22/17 20:18 97.8 86 16 186/86 (119) 95 03/22/17 19:30 Room Air 03/22/17 16:00 97.9 75 19 146/79 (101) 96 03/22/17 15:57 96 21 03/22/17 12:00 97.9 65 19 179/82 (114) 95 I/O 03/22/17 03/22/17 03/22/17 03/23/17 03/23/17 03/23/17 07:00 15:00 23:00 07:00 15:00 23:00 Intake Total 580 ml 100 ml 580 ml Output Total 1300 ml 1600 ml 1600 ml Balance -720 ml 100 ml -1600 ml -1020 ml Intake Oral 480 ml 480 ml IV Total 100 ml 100 ml 100 ml Output Urine Total 1300 ml 1600 ml 1600 ml # Bowel Movements 0 1 0 Result Diagram: 03/23/17 0800 03/23/17 0800 Imaging Last Impressions Chest X-Ray 03/17/17 0000 Signed Impressions: Service Date/Time: Friday, March 17, 2017 02:24 - CONCLUSION: Left IJ central line distal tip in the SVC. No pneumothorax is visualized. Remberto Cooper MD Abdomen/Pelvis CT 03/16/17 0000 Signed Impressions: Service Date/Time: February 20:38 - CONCLUSION: 1. Numerous calcifications seen in the kidneys bilaterally. On the left side there are calcifications seen at the left UPJ/proximal ureter concerning for some obstruction at the left collecting system. 2. Generalized atrophy at the right kidney with a prominent staghorn calculus seen at the right renal collecting system. 3. A moderate amount of stool seen throughout the colon. There are colonic diverticula. 4. Mild distension of much of the small bowel measuring up to 3.5 cm. This is nonspecific. 5. Normal free fluid in the left paracolic gutter region. The cause of this is not clearly identified. 6. Chronic change at the proximal femur and hip regions bilaterally. This is a longstanding issue. 7. Left lower lobe consolidation/pneumonia. Remberto Ashford MD Procedures s/p cystoscopy and left ureteral stent placement 03/17 Other Results Laboratory Tests Test 03/16/17 01:10 03/16/17 14:15 03/16/17 14:30 03/17/17 07:51 Urine WBC Clumps MANY Urine Squamous Epithelial Cells 1 /hpf Urine Transitional Epithelial Cells <1 /hpf Urine Renal Epithelial Cells <1 /hpf Nasal Screen MRSA (PCR) MRSA NOT DETECTED Urine Color LIGHT-YELLOW Urine Turbidity HAZY Urine pH 6.0 Urine Specific [place] 1.007 Urine Protein TRACE mg/dL Urine Glucose (UA) NEG mg/dL Urine Ketones NEG mg/dL Urine Occult Blood SMALL Urine Nitrite NEG Urine Bilirubin NEG Urine Urobilinogen LESS THAN 2.0 MG/DL Urine Leukocyte Esterase LARGE Urine RBC 6 /hpf Urine WBC 63 /hpf Urine Amorphous Sediment RARE Urine Bacteria MANY /hpf Microscopic Urinalysis Comment CATH-CULTURE IND Lactic Acid Level 0.7 mmol/L Test 03/18/17 04:20 03/23/17 08:00 Protein Corrected Calcium 7.7 MG/DL Blood Urea Nitrogen 43 MG/DL 34 MG/DL Creatinine 2.26 MG/DL 2.36 MG/DL Random Glucose 86 MG/DL 107 MG/DL Total Protein 5.7 GM/DL Albumin 2.1 GM/DL 2.4 GM/DL Calcium Level 7.0 MG/DL 8.6 MG/DL Alkaline Phosphatase 131 U/L Aspartate Amino Transf (AST/SGOT) 13 U/L Alanine Aminotransferase (ALT/SGPT) 18 U/L Total Bilirubin 0.2 MG/DL Sodium Level 146 MEQ/L 139 MEQ/L Potassium Level 4.1 MEQ/L 3.5 MEQ/L Chloride Level 115 MEQ/L 106 MEQ/L Carbon Dioxide Level 20.0 MEQ/L 25.2 MEQ/L White Blood Count 6.1 TH/MM3 Red Blood Count 3.42 MIL/MM3 Hemoglobin 10.0 GM/DL Hematocrit 31.5 % Mean Corpuscular Volume 92.0 FL Mean Corpuscular Hemoglobin 29.4 PG Mean Corpuscular Hemoglobin Concent 31.9 % Red Cell Distribution Width 15.6 % Platelet Count 289 TH/MM3 Mean Platelet Volume 7.7 FL Neutrophils (%) (Auto) 56.9 % Lymphocytes (%) (Auto) 22.2 % Monocytes (%) (Auto) 11.5 % Eosinophils (%) (Auto) 8.6 % Basophils (%) (Auto) 0.8 % Neutrophils # (Auto) 3.5 TH/MM3 Lymphocytes # (Auto) 1.4 TH/MM3 Monocytes # (Auto) 0.7 TH/MM3 Eosinophils # (Auto) 0.5 TH/MM3 Basophils # (Auto) 0.1 TH/MM3 CBC Comment AUTO DIFF Differential Total Cells Counted 100 Neutrophils % (Manual) 55 % Band Neutrophils % 8 % Lymphocytes % 16 % Monocytes % 9 % Eosinophils % 6 % Basophils % 2 % Neutrophils # (Manual) 4.1 TH/MM3 Myelocytes 4 % Differential Comment FINAL DIFF MANUAL Platelet Estimate NORMAL Platelet Morphology Comment NORMAL Red Cell Morphology Comment NORMAL Phosphorus Level 3.4 MG/DL Anion Gap 8 MEQ/L Estimat Glomerular Filtration Rate 20 ML/MIN Objective Remarks GENERAL: Obesity SKIN: Warm and dry. HEAD: Normocephalic. EYES: No scleral icterus. No injection or drainage. NECK: Supple, trachea midline. No JVD or lymphadenopathy. CARDIOVASCULAR: Regular rate and rhythm without murmurs, gallops, or rubs. RESPIRATORY: Breath sounds equal bilaterally. No accessory muscle use. GASTROINTESTINAL: Abdomen soft, non-tender, nondistended. MUSCULOSKELETAL: No cyanosis, or edema. Neuro: Awake and alert Medications and IVs Current Medications Medications (Trade) Dose Ordered Sig/Marni Route Start Time Stop Time Status Last Admin (NS Flush) 2 ml UNSCH PRN IV FLUSH 03/16/17 02:15 (NS Flush) 2 ml BID IV FLUSH 03/16/17 09:00 03/23/17 08:16 (Narcan Inj) 0.4 mg UNSCH PRN IV 03/16/17 02:15 (Atrovent Neb) 0.5 mg Q6HR NEB NEB 03/16/17 10:00 03/23/17 10:02 (Atrovent Neb) 0.5 mg Q2HR NEB PRN NEB 03/16/17 04:30 (Colace) 100 mg TID PO 03/16/17 09:00 03/23/17 08:16 (Ferrous Sulfate) 325 mg DAILY PO 03/16/17 09:00 03/23/17 08:16 ([place] 10-325 Mg) 1 tab Q6H PRN PO 03/16/17 04:45 03/23/17 07:11 (Protonix) 40 mg DAILY PO 03/16/17 09:00 03/23/17 08:16 (Heparin Inj) 5,000 units Q8HR SQ 03/16/17 06:00 03/23/17 07:10 (D50w (Vial) Inj) 25 ml UNSCH PRN IV PUSH 03/16/17 15:00 (NovoLIN R SUPPLEMENTAL SCALE) 1 Q6HR SQ 03/16/17 18:00 Aztreonam 1000 mg/ Sodium Chloride 100 ml @ 200 mls/hr Q8H IV 03/16/17 17:00 03/23/17 08:16 Miscellaneous Information Patient in critical care unit? Ass... Q361D .XX 03/16/17 21:15 03/16/17 21:15 (Brethine Inj) 1 mg UNSCH PRN SQ 03/17/17 02:30 (Lopressor) 25 mg Q12HR PO 03/19/17 01:00 03/23/17 08:16 (Catapres) 0.1 mg Q6H PRN PO 03/19/17 13:00 03/22/17 21:04 (Zofran Inj) 4 mg Q4HR PRN IV PUSH 03/19/17 17:00 03/20/17 08:39 A/P Assessment and Plan 1. Respiratory Insufficiency Bronchodilator and oxygen to keep oxygen saturation over 92%. Stable 2. Septic Shock/Severe Sepsis/Gram Negative Bacteremia/Leukocytosis BC 03/16 GNR, BC 03/17: NGTD UC 03/16: GNR, pseudomonas ID is following and continue on Aztreonam. 3. Calcifications left UPJ/ureter, 4. Metabolic encephalopathy Improved. 5. Acute Kidney injury Nephrology specialist following. Status post Cystoscopy and left ureteral stent placement 03/17 patient with Hydronephrosis, has Klebsiella UTI resistant to Levaquin, Sepsis Shock resolved, On Azactam, Discontinued Levaquin and Flagyl by ID specialist. probable ATN has been stable since admission. GI/DVT prophylaxis - on Protonix and Heparin SQ respectively Lines: Left IJ CVP placed 03/17, Discussed with patient, all questions answered to the best of my abilities. No changes to anterior assessment. Discharge Planning Once cleared by Specialists. Michael Garcia MD Mar 23, 2017 11:54
[2017-03-24] VITALS (7 sets, daily range): BP systolic 128–184; BP diastolic 66–89; PULSE 66–92; RESP 19; TEMP 97.4–98.2; O2SAT 94–98
[2017-03-24] MEDS: AZTREONAM INJ 1,000 MG in SODIUM CHLORIDE 0.9% INJ 100 ML IV SCH ×4 (00:12→23:45)
[2017-03-24] MEDS: ACETAMINOPHEN/HYDROcodone 325 MG/10 MG TAB PO PRN ×3 (04:08→16:17)
[2017-03-24] MEDS: HEPARIN SODIUM - SQ 10,000 UNITS/ML VIAL SQ SCH ×3 (05:57→23:34)
[2017-03-24] MEDS: INSULIN NovoLIN REGULAR SUPPLEMENTAL SCALE SQ SCH ×4 (05:57→23:33)
[2017-03-24] MEDS: SODIUM CHLORIDE 0.9% FLUSH 10 ML FLUSH IV FLUSH SCH ×2 (09:00→23:45)
[2017-03-24] MEDS: RESP: IPRATROPIUM 0.5 MG/2.5 ML NEB NEB SCH ×3 (10:05→21:10)
[2017-03-24] MEDS: PANTOPRAZOLE SOD 40 MG DELAYED RELEASE TAB PO SCH (10:13)
[2017-03-24] MEDS: DOCUSATE SODIUM 100 MG CAP PO SCH ×3 (10:14→16:16)
[2017-03-24] MEDS: FERROUS SULFATE 325 MG (65 MG ELEMENTAL IRON) TAB PO SCH (10:14)
[2017-03-24] MEDS: METOPROLOL TARTRATE 25 MG TAB PO SCH ×2 (10:14→21:00)
--- NOTE | 2017-03-24 10:56 | HHI.NPPN ---
Subjective Renal Failure: Chronic, Acute Interval History No patient concerns. Labs in process. (Erin Kam) Review of Systems General Constitutional: Fatigue (Erin Kam) Objective Data Data Vital Signs Date Time Temp Pulse Resp B/P (MAP) Pulse Ox O2 Delivery O2 Flow Rate FiO2 03/24/17 08:05 97.6 68 19 130/68 (88) 97 03/24/17 05:00 20 03/24/17 04:00 98.2 78 19 163/87 (112) 94 03/23/17 23:24 98.4 77 20 163/74 (103) 96 03/23/17 20:00 78 03/23/17 20:00 98.1 81 20 181/74 (109) 97 168/78 (108) 03/23/17 20:00 Room Air 03/23/17 16:00 98.0 77 20 152/75 (100) 93 03/23/17 15:58 96 21 03/23/17 12:00 98.4 60 18 148/67 (94) 94 (Erin Kam) -: 03/23/17 0800 03/23/17 0800 Imaging Last Impressions Chest X-Ray 03/17/17 0000 Signed Impressions: Service Date/Time: Friday, March 17, 2017 02:24 - CONCLUSION: Left IJ central line distal tip in the SVC. No pneumothorax is visualized. Remberto Cooper MD Abdomen/Pelvis CT 03/16/17 0000 Signed Impressions: Service Date/Time: February 20:38 - CONCLUSION: 1. Numerous calcifications seen in the kidneys bilaterally. On the left side there are calcifications seen at the left UPJ/proximal ureter concerning for some obstruction at the left collecting system. 2. Generalized atrophy at the right kidney with a prominent staghorn calculus seen at the right renal collecting system. 3. A moderate amount of stool seen throughout the colon. There are colonic diverticula. 4. Mild distension of much of the small bowel measuring up to 3.5 cm. This is nonspecific. 5. Normal free fluid in the left paracolic gutter region. The cause of this is not clearly identified. 6. Chronic change at the proximal femur and hip regions bilaterally. This is a longstanding issue. 7. Left lower lobe consolidation/pneumonia. Remberto Ashford MD Tubes & Lines: Mccarty Tubes & Lines Comment TLC left IJ (Negin,Erin B. ELECTRICAL APPRENTICE) Physical Exam General Appearance: Well Developed, Well Nourished, No Acute Distress, Comfortable (Negin,Erin B. ELECTRICAL APPRENTICE) Eyes Eye Exam: Pupils Equal (Negin,Erin B. ELECTRICAL APPRENTICE) Throat Throat Exam: Oral Mucosa [place] & Moist (Negin,Erin B. ELECTRICAL APPRENTICE) Pulmonary Resp Exam: Clear Bilaterally, Breath Sounds Equal, Rhonchi (Negin,Erin B. ELECTRICAL APPRENTICE) Cardiology CV Exam: Regular, Normal Sinus Rhythm (Negin,Erin B. ELECTRICAL APPRENTICE) Gastrointestinal/Abdomen GI Exam: Soft, Non-Tender (Negin,Erin B. ELECTRICAL APPRENTICE) Genitourinary Exam: Clear Urine (Negin,Erin B. ELECTRICAL APPRENTICE) Musculoskeletal MS Exam: Joints Intact, Atrophy MS Remarks foot drop bilaterally (NeginErin B. ELECTRICAL APPRENTICE) Integumentary Skin Exam: Clear, Warm, Dry, Intact (Negin,Erin B. ELECTRICAL APPRENTICE) Extremeties Extremities Exam: No Edema, Pedal Pulses Palpable (Negin,Erin B. ELECTRICAL APPRENTICE) Neurologic Neuro Exam: Alert, Awake, Oriented, Speech Clear (Negin,Erin B. ELECTRICAL APPRENTICE) Psychiatric Psych Exam: Appropriate Responses (NeginErin B. ELECTRICAL APPRENTICE) Assessment/Plan Discussed Condition With: Patient Assessment Summary: WIHT/Acute Renal Failure, Acute Tubular Necrosis Problem List: (1) Acute renal failure ICD Codes: N17.9 - Acute kidney failure, unspecified Plan: Likely suffered ATN due to sepsis, also had stone causing left sided hydronephrosis. s/p left ureteral stent placement with urology renal function has improved, awaiting repeat renal panel excellent urine output with catheter tolerating oral fluids, not on IVF Monitor urine output and renal function daily. avoid nephrotoxins (2) Severe sepsis ICD Codes: A41.9 - Sepsis, unspecified organism; R65.20 - Severe sepsis without septic shock Status: Acute Plan: BC + x 4, GNR, source UTI (Klebsiella) has been evaluated by ID Patient is on Aztreonam. she is afebrile, clinically improved of note she has a chronic mccarty catheter due to neurogenic bladder, immobility, previous retention (Erin Kam) Problem List: (1) Acute renal failure ICD Codes: N17.9 - Acute kidney failure, unspecified Plan: Likely suffered ATN due to sepsis, also had stone causing left sided hydronephrosis. s/p left ureteral stent placement with urology renal function has improved, awaiting repeat renal panel excellent urine output with catheter tolerating oral fluids, not on IVF Monitor urine output and renal function daily. avoid nephrotoxins (2) Severe sepsis ICD Codes: A41.9 - Sepsis, unspecified organism; R65.20 - Severe sepsis without septic shock Status: Acute Plan: BC + x 4, GNR, source UTI (Klebsiella) has been evaluated by ID Patient is on Aztreonam. she is afebrile, clinically improved of note she has a chronic mccarty catheter due to neurogenic bladder, immobility, previous retention Plan patient was seen and examined. Agree with above assessment and plan. She can be discharged from renal standpoint. We will be available as needed. (Sloan Chau MD) Erin Kam Mar 24, 2017 10:56 Sloan Chau MD Mar 24, 2017 14:11
--- NOTE | 2017-03-24 14:45 | HHI.PR ---
Subjective Remarks mechanical engineering specialist Notes: This is a 76-year-old female with a history of urinary retention with chronic Nagy catheter who was brought in on 03/15 from her custodial facility with fever. She was per report lethargic in the emergency department. She was admitted to the hospital with a presumptive diagnosis of catheter associated urinary tract infection from her outside facility. In the emergency department she was given a dose of Zosyn IV, gentamicin IV, vancomycin IV. She was admitted in the hospitalist team placed her on vancomycin and Levaquin. Despite optimal therapy, she continued to be altered and became more hypotensive throughout the morning. She was rapid response for persistent hypotension and transferred to the intensive care unit for closer monitoring and management of her now presumed septic shock. Critical care medicine is consulted to evaluate and manage her shock as well as her multiorgan dysfunction including acute kidney injury and metabolic encephalopathy. Unfortunately, the patient is to encephalopathic to answer questions and no additional history can be obtained from the patient. 03/17 Patient is lying in bed in NAD. Afebrile. 03/18 No events overnight. Awake and alert. s/p cystoscopy and left ureteral stent placement yesterday. Afebrile. Hospitalist Notes: 03/19: Patient transferred to Hospitalist Group she has Hydronephrosis left with Ureteral Calculus left, status post Cystoscopy and insertion of terminologist left ureteral stent, has UTI complicated due to Obstruction, has Klebsiella Pneumonia, Pseudomonas Aeruginosa, Sepsis secondary to Klebsiella UTI resistant to Levaquin, Sepsis Shock resolved, On Azactam, Discontinued Levaquin and Flagyl by ID specialist. 03/20: Seen in her bedroom in the presence of nurse Miss Rosie araiza, patient stable, no complaint okay from nephrology specialist standpoint for transfer to Medical floor, she may had suffered ATN due to sepsis, Discontinued IV fluids. 03/21: Stable not yet cleared by discharge by specialists 03/22: Nephrology specialist following, patient states she is eating and drinking well, encourage to continue to continue Azactam as per ID specialist. 03/23: Seen in her bedroom, no new issues, no complaint no nausea, vomit or diarrhea. 03/24: Stable in his bedroom, no new issues. Objective Vital Signs Date Time Temp Pulse Resp B/P (MAP) Pulse Ox O2 Delivery O2 Flow Rate FiO2 03/24/17 08:05 97.6 68 19 130/68 (88) 97 03/24/17 08:00 92 03/24/17 08:00 Room Air 03/24/17 05:00 20 03/24/17 04:00 98.2 78 19 163/87 (112) 94 03/23/17 23:24 98.4 77 20 163/74 (103) 96 03/23/17 20:00 78 03/23/17 20:00 98.1 81 20 181/74 (109) 97 168/78 (108) 03/23/17 20:00 Room Air 03/23/17 16:00 98.0 77 20 152/75 (100) 93 03/23/17 15:58 96 21 I/O 03/23/17 03/23/17 03/23/17 03/24/17 03/24/17 03/24/17 07:00 15:00 23:00 07:00 15:00 23:00 Intake Total 580 ml 960 ml 780 ml Output Total 1600 ml 2000 ml 1600 ml Balance -1020 ml -1040 ml -820 ml Intake Oral 480 ml 960 ml 780 ml IV Total 100 ml Output Urine Total 1600 ml 2000 ml 1600 ml # Bowel Movements 0 0 1 Result Diagram: 03/23/17 0800 03/23/17 0800 Imaging Last Impressions Chest X-Ray 03/17/17 0000 Signed Impressions: Service Date/Time: Friday, March 17, 2017 02:24 - CONCLUSION: Left IJ central line distal tip in the SVC. No pneumothorax is visualized. Remberto Cooper MD Abdomen/Pelvis CT 03/16/17 0000 Signed Impressions: Service Date/Time: February 20:38 - CONCLUSION: 1. Numerous calcifications seen in the kidneys bilaterally. On the left side there are calcifications seen at the left UPJ/proximal ureter concerning for some obstruction at the left collecting system. 2. Generalized atrophy at the right kidney with a prominent staghorn calculus seen at the right renal collecting system. 3. A moderate amount of stool seen throughout the colon. There are colonic diverticula. 4. Mild distension of much of the small bowel measuring up to 3.5 cm. This is nonspecific. 5. Normal free fluid in the left paracolic gutter region. The cause of this is not clearly identified. 6. Chronic change at the proximal femur and hip regions bilaterally. This is a longstanding issue. 7. Left lower lobe consolidation/pneumonia. Remberto Ashford MD Procedures s/p cystoscopy and left ureteral stent placement 03/17 Other Results Laboratory Tests Test 03/16/17 01:10 03/16/17 14:15 03/16/17 14:30 03/17/17 07:51 Urine WBC Clumps MANY Urine Squamous Epithelial Cells 1 /hpf Urine Transitional Epithelial Cells <1 /hpf Urine Renal Epithelial Cells <1 /hpf Nasal Screen MRSA (PCR) MRSA NOT DETECTED Urine Color LIGHT-YELLOW Urine Turbidity HAZY Urine pH 6.0 Urine Specific [place] 1.007 Urine Protein TRACE mg/dL Urine Glucose (UA) NEG mg/dL Urine Ketones NEG mg/dL Urine Occult Blood SMALL Urine Nitrite NEG Urine Bilirubin NEG Urine Urobilinogen LESS THAN 2.0 MG/DL Urine Leukocyte Esterase LARGE Urine RBC 6 /hpf Urine WBC 63 /hpf Urine Amorphous Sediment RARE Urine Bacteria MANY /hpf Microscopic Urinalysis Comment CATH-CULTURE IND Lactic Acid Level 0.7 mmol/L Test 03/18/17 04:20 03/23/17 08:00 Protein Corrected Calcium 7.7 MG/DL Blood Urea Nitrogen 43 MG/DL 34 MG/DL Creatinine 2.26 MG/DL 2.36 MG/DL Random Glucose 86 MG/DL 107 MG/DL Total Protein 5.7 GM/DL Albumin 2.1 GM/DL 2.4 GM/DL Calcium Level 7.0 MG/DL 8.6 MG/DL Alkaline Phosphatase 131 U/L Aspartate Amino Transf (AST/SGOT) 13 U/L Alanine Aminotransferase (ALT/SGPT) 18 U/L Total Bilirubin 0.2 MG/DL Sodium Level 146 MEQ/L 139 MEQ/L Potassium Level 4.1 MEQ/L 3.5 MEQ/L Chloride Level 115 MEQ/L 106 MEQ/L Carbon Dioxide Level 20.0 MEQ/L 25.2 MEQ/L White Blood Count 6.1 TH/MM3 Red Blood Count 3.42 MIL/MM3 Hemoglobin 10.0 GM/DL Hematocrit 31.5 % Mean Corpuscular Volume 92.0 FL Mean Corpuscular Hemoglobin 29.4 PG Mean Corpuscular Hemoglobin Concent 31.9 % Red Cell Distribution Width 15.6 % Platelet Count 289 TH/MM3 Mean Platelet Volume 7.7 FL Neutrophils (%) (Auto) 56.9 % Lymphocytes (%) (Auto) 22.2 % Monocytes (%) (Auto) 11.5 % Eosinophils (%) (Auto) 8.6 % Basophils (%) (Auto) 0.8 % Neutrophils # (Auto) 3.5 TH/MM3 Lymphocytes # (Auto) 1.4 TH/MM3 Monocytes # (Auto) 0.7 TH/MM3 Eosinophils # (Auto) 0.5 TH/MM3 Basophils # (Auto) 0.1 TH/MM3 CBC Comment AUTO DIFF Differential Total Cells Counted 100 Neutrophils % (Manual) 55 % Band Neutrophils % 8 % Lymphocytes % 16 % Monocytes % 9 % Eosinophils % 6 % Basophils % 2 % Neutrophils # (Manual) 4.1 TH/MM3 Myelocytes 4 % Differential Comment FINAL DIFF MANUAL Platelet Estimate NORMAL Platelet Morphology Comment NORMAL Red Cell Morphology Comment NORMAL Phosphorus Level 3.4 MG/DL Anion Gap 8 MEQ/L Estimat Glomerular Filtration Rate 20 ML/MIN Objective Remarks GENERAL: Obesity SKIN: Warm and dry. HEAD: Normocephalic. EYES: No scleral icterus. No injection or drainage. NECK: Supple, trachea midline. No JVD or lymphadenopathy. CARDIOVASCULAR: Regular rate and rhythm without murmurs, gallops, or rubs. RESPIRATORY: Breath sounds equal bilaterally. No accessory muscle use. GASTROINTESTINAL: Abdomen soft, non-tender, nondistended. MUSCULOSKELETAL: No cyanosis, or edema. Neuro: Awake and alert Medications and IVs Current Medications Medications (Trade) Dose Ordered Sig/Marni Route Start Time Stop Time Status Last Admin (NS Flush) 2 ml UNSCH PRN IV FLUSH 03/16/17 02:15 (NS Flush) 2 ml BID IV FLUSH 03/16/17 09:00 03/24/17 09:00 (Narcan Inj) 0.4 mg UNSCH PRN IV 03/16/17 02:15 (Atrovent Neb) 0.5 mg Q6HR NEB NEB 03/16/17 10:00 03/24/17 10:05 (Atrovent Neb) 0.5 mg Q2HR NEB PRN NEB 03/16/17 04:30 (Colace) 100 mg TID PO 03/16/17 09:00 03/24/17 12:44 (Ferrous Sulfate) 325 mg DAILY PO 03/16/17 09:00 03/24/17 10:14 ([place] 10-325 Mg) 1 tab Q6H PRN PO 03/16/17 04:45 03/24/17 10:14 (Protonix) 40 mg DAILY PO 03/16/17 09:00 03/24/17 10:13 (Heparin Inj) 5,000 units Q8HR SQ 03/16/17 06:00 03/24/17 12:45 (D50w (Vial) Inj) 25 ml UNSCH PRN IV PUSH 03/16/17 15:00 (NovoLIN R SUPPLEMENTAL SCALE) 1 Q6HR SQ 03/16/17 18:00 Aztreonam 1000 mg/ Sodium Chloride 100 ml @ 200 mls/hr Q8H IV 03/16/17 17:00 03/24/17 10:10 Miscellaneous Information Patient in critical care unit? Ass... Q361D .XX 03/16/17 21:15 03/16/17 21:15 (Brethine Inj) 1 mg UNSCH PRN SQ 03/17/17 02:30 (Lopressor) 25 mg Q12HR PO 03/19/17 01:00 03/24/17 10:14 (Catapres) 0.1 mg Q6H PRN PO 03/19/17 13:00 03/22/17 21:04 (Zofran Inj) 4 mg Q4HR PRN IV PUSH 03/19/17 17:00 03/20/17 08:39 A/P Assessment and Plan 1. Respiratory Insufficiency Bronchodilator and oxygen to keep oxygen saturation over 92%. Stable 2. Septic Shock/Severe Sepsis/Gram Negative Bacteremia/Leukocytosis 03/16 GNR, BC 03/17: NGTD UC 03/16: GNR, pseudomonas ID is following and continue on Aztreonam. 3. Calcifications left UPJ/ureter, 4. Metabolic encephalopathy Improved. 5. Acute Kidney injury Nephrology specialist following. Status post Cystoscopy and left ureteral stent placement 03/17 patient with Hydronephrosis, has Klebsiella UTI resistant to Levaquin, Sepsis Shock resolved, On Azactam, Discontinued Levaquin and Flagyl by ID specialist. probable ATN has been stable since admission. GI/DVT prophylaxis - on Protonix and Heparin SQ respectively Lines: Left IJ CVP placed 03/17, Discussed with patient, all questions answered to the best of my abilities. No changes to anterior assessment. Discharge Planning Once cleared by Specialists. Michael Garcia MD Mar 24, 2017 14:45
[2017-03-24 16:08] LABS: BICARBONATE 24.8 MEQ/L (21.0-32.0); POTASSIUM 3.9 MEQ/L (3.5-5.1)
--- NOTE | 2017-03-24 20:21 | HHI.PR ---
Addendum to Inpatient Note Addendum Reason: Additional Documentation Additional Information pt has no oral options to complete abx (resistance, allergies) She needs to complete azactam 2 weeks 2/2 severe sepsis, however due to hurracaine conditions no HHC is availbale for the next few days She can be o/w discharged from ID standpoint once her HHC and IV abx are arranged Eosinophilia noted: will follow Anna De La Fuente MD Mar 24, 2017 20:21
[2017-03-24] MEDS: cloNIDine HCL 0.1 MG TAB PO PRN (23:34)
[2017-03-25] VITALS (9 sets, daily range): BP systolic 160–181; BP diastolic 72–89; PULSE 64–89; RESP 18–20; TEMP 97.6–98.5; O2SAT 94–100
[2017-03-25] MEDS: RESP: IPRATROPIUM 0.5 MG/2.5 ML NEB NEB SCH ×4 (03:43→20:24)
[2017-03-25] MEDS: INSULIN NovoLIN REGULAR SUPPLEMENTAL SCALE SQ SCH ×4 (06:00→23:51)
[2017-03-25] MEDS: HEPARIN SODIUM - SQ 10,000 UNITS/ML VIAL SQ SCH ×3 (06:27→23:04)
[2017-03-25] MEDS: AZTREONAM INJ 1,000 MG in SODIUM CHLORIDE 0.9% INJ 100 ML IV SCH ×2 (09:02→18:38)
[2017-03-25] MEDS: PANTOPRAZOLE SOD 40 MG DELAYED RELEASE TAB PO SCH (09:03)
[2017-03-25] MEDS: DOCUSATE SODIUM 100 MG CAP PO SCH ×3 (09:03→18:38)
[2017-03-25] MEDS: SODIUM CHLORIDE 0.9% FLUSH 10 ML FLUSH IV FLUSH SCH ×2 (09:03→20:38)
[2017-03-25] MEDS: FERROUS SULFATE 325 MG (65 MG ELEMENTAL IRON) TAB PO SCH (09:03)
[2017-03-25] MEDS: METOPROLOL TARTRATE 25 MG TAB PO SCH ×2 (09:03→20:38)
[2017-03-25] MEDS: ACETAMINOPHEN/HYDROcodone 325 MG/10 MG TAB PO PRN ×3 (09:03→23:04)
--- NOTE | 2017-03-25 14:19 | HHI.PR ---
Subjective Remarks contract administration specialist Notes: This is a 76-year-old female with a history of urinary retention with chronic Nagy catheter who was brought in on 03/15 from her [facility] facility with fever. She was per report lethargic in the emergency department. She was admitted to the hospital with a presumptive diagnosis of catheter associated urinary tract infection from her outside facility. In the emergency department she was given a dose of Zosyn IV, gentamicin IV, vancomycin IV. She was admitted in the hospitalist team placed her on vancomycin and Levaquin. Despite optimal therapy, she continued to be altered and became more hypotensive throughout the morning. She was rapid response for persistent hypotension and transferred to the intensive care unit for closer monitoring and management of her now presumed septic shock. Critical care medicine is consulted to evaluate and manage her shock as well as her multiorgan dysfunction including acute kidney injury and metabolic encephalopathy. Unfortunately, the patient is to encephalopathic to answer questions and no additional history can be obtained from the patient. 03/17 Patient is lying in bed in NAD. Afebrile. 03/18 No events overnight. Awake and alert. s/p cystoscopy and left ureteral stent placement yesterday. Afebrile. Hospitalist Notes: 03/19: Patient transferred to Hospitalist Group she has Hydronephrosis left with Ureteral Calculus left, status post Cystoscopy and insertion of termination clerk left ureteral stent, has UTI complicated due to Obstruction, has Klebsiella Pneumonia, Pseudomonas Aeruginosa, Sepsis secondary to Klebsiella UTI resistant to Levaquin, Sepsis Shock resolved, On Azactam, Discontinued Levaquin and Flagyl by ID specialist. 03/20: Seen in her bedroom in the presence of nurse Miss Rsoie araiza, patient stable, no complaint okay from nephrology specialist standpoint for transfer to Medical floor, she may had suffered ATN due to sepsis, Discontinued IV fluids. 03/21: Stable not yet cleared by discharge by specialists 03/22: Nephrology specialist following, patient states she is eating and drinking well, encourage to continue to continue Azactam as per ID specialist. 03/23: Seen in her bedroom, no new issues, no complaint no nausea, vomit or diarrhea. 03/24: Stable in his bedroom, no new issues. 03/25: Seen in her bedroom and discussed with nurse, recommended to continue Ammonium Lactate for dyshidrosis, as per ID specialist to discharge after the [facility] for IV antibiotics may be performed to continue Azactam for the next two weeks. Objective Vital Signs Date Time Temp Pulse Resp B/P (MAP) Pulse Ox O2 Delivery O2 Flow Rate FiO2 03/25/17 13:29 98 03/25/17 12:00 97.8 69 20 164/72 (102) 03/25/17 08:00 98.5 77 20 169/77 (107) 95 Automatic Cuff 03/25/17 07:56 Room Air 03/25/17 04:00 97.9 77 20 160/80 (106) 96 03/25/17 03:45 94 03/25/17 00:00 97.6 89 19 181/89 (119) 96 03/24/17 20:00 Room Air 03/24/17 20:00 98.0 78 19 184/89 (120) 98 03/24/17 16:14 98 21 03/24/17 16:05 97.7 66 19 128/66 (86) 96 I/O 03/24/17 03/24/17 03/24/17 03/25/17 03/25/17 03/25/17 07:00 15:00 23:00 07:00 15:00 23:00 Intake Total 780 ml 100 ml 380 ml 340 ml Output Total 1600 ml 650 ml 4300 ml Balance -820 ml 100 ml -270 ml -3960 ml Intake Oral 780 ml 280 ml 240 ml IV Total 100 ml 100 ml 100 ml Output Urine Total 1600 ml 650 ml 4300 ml # Bowel Movements 1 0 Result Diagram: 03/23/17 0800 03/24/17 1514 Imaging Last Impressions Chest X-Ray 03/17/17 0000 Signed Impressions: Service Date/Time: Friday, March 17, 2017 02:24 - CONCLUSION: Left IJ central line distal tip in the SVC. No pneumothorax is visualized. Remberto Cooper MD Abdomen/Pelvis CT 03/16/17 0000 Signed Impressions: Service Date/Time: February 20:38 - CONCLUSION: 1. Numerous calcifications seen in the kidneys bilaterally. On the left side there are calcifications seen at the left UPJ/proximal ureter concerning for some obstruction at the left collecting system. 2. Generalized atrophy at the right kidney with a prominent staghorn calculus seen at the right renal collecting system. 3. A moderate amount of stool seen throughout the colon. There are colonic diverticula. 4. Mild distension of much of the small bowel measuring up to 3.5 cm. This is nonspecific. 5. Normal free fluid in the left paracolic gutter region. The cause of this is not clearly identified. 6. Chronic change at the proximal femur and hip regions bilaterally. This is a longstanding issue. 7. Left lower lobe consolidation/pneumonia. Remberto Ashford MD Procedures s/p cystoscopy and left ureteral stent placement 03/17 Other Results Laboratory Tests Test 03/16/17 01:10 03/16/17 14:15 03/16/17 14:30 03/17/17 07:51 Urine WBC Clumps MANY Urine Squamous Epithelial Cells 1 /hpf Urine Transitional Epithelial Cells <1 /hpf Urine Renal Epithelial Cells <1 /hpf Nasal Screen MRSA (PCR) MRSA NOT DETECTED Urine Color LIGHT-YELLOW Urine Turbidity HAZY Urine pH 6.0 Urine Specific [place] 1.007 Urine Protein TRACE mg/dL Urine Glucose (UA) NEG mg/dL Urine Ketones NEG mg/dL Urine Occult Blood SMALL Urine Nitrite NEG Urine Bilirubin NEG Urine Urobilinogen LESS THAN 2.0 MG/DL Urine Leukocyte Esterase LARGE Urine RBC 6 /hpf Urine WBC 63 /hpf Urine Amorphous Sediment RARE Urine Bacteria MANY /hpf Microscopic Urinalysis Comment CATH-CULTURE IND Lactic Acid Level 0.7 mmol/L Test 03/18/17 04:20 03/23/17 08:00 03/24/17 15:14 Protein Corrected Calcium 7.7 MG/DL Blood Urea Nitrogen 43 MG/DL 31 MG/DL Creatinine 2.26 MG/DL 2.06 MG/DL Random Glucose 86 MG/DL 115 MG/DL Total Protein 5.7 GM/DL Albumin 2.1 GM/DL 2.7 GM/DL Calcium Level 7.0 MG/DL 8.6 MG/DL Alkaline Phosphatase 131 U/L Aspartate Amino Transf (AST/SGOT) 13 U/L Alanine Aminotransferase (ALT/SGPT) 18 U/L Total Bilirubin 0.2 MG/DL Sodium Level 146 MEQ/L 139 MEQ/L Potassium Level 4.1 MEQ/L 3.9 MEQ/L Chloride Level 115 MEQ/L 107 MEQ/L Carbon Dioxide Level 20.0 MEQ/L 24.8 MEQ/L White Blood Count 6.1 TH/MM3 Red Blood Count 3.42 MIL/MM3 Hemoglobin 10.0 GM/DL Hematocrit 31.5 % Mean Corpuscular Volume 92.0 FL Mean Corpuscular Hemoglobin 29.4 PG Mean Corpuscular Hemoglobin Concent 31.9 % Red Cell Distribution Width 15.6 % Platelet Count 289 TH/MM3 Mean Platelet Volume 7.7 FL Neutrophils (%) (Auto) 56.9 % Lymphocytes (%) (Auto) 22.2 % Monocytes (%) (Auto) 11.5 % Eosinophils (%) (Auto) 8.6 % Basophils (%) (Auto) 0.8 % Neutrophils # (Auto) 3.5 TH/MM3 Lymphocytes # (Auto) 1.4 TH/MM3 Monocytes # (Auto) 0.7 TH/MM3 Eosinophils # (Auto) 0.5 TH/MM3 Basophils # (Auto) 0.1 TH/MM3 CBC Comment AUTO DIFF Differential Total Cells Counted 100 Neutrophils % (Manual) 55 % Band Neutrophils % 8 % Lymphocytes % 16 % Monocytes % 9 % Eosinophils % 6 % Basophils % 2 % Neutrophils # (Manual) 4.1 TH/MM3 Myelocytes 4 % Differential Comment FINAL DIFF MANUAL Platelet Estimate NORMAL Platelet Morphology Comment NORMAL Red Cell Morphology Comment NORMAL Phosphorus Level 3.4 MG/DL Anion Gap 7 MEQ/L Estimat Glomerular Filtration Rate 23 ML/MIN Objective Remarks GENERAL: Obesity SKIN: Warm and dry. HEAD: Normocephalic. EYES: No scleral icterus. No injection or drainage. NECK: Supple, trachea midline. No JVD or lymphadenopathy. CARDIOVASCULAR: Regular rate and rhythm without murmurs, gallops, or rubs. RESPIRATORY: Breath sounds equal bilaterally. No accessory muscle use. GASTROINTESTINAL: Abdomen soft, non-tender, nondistended. MUSCULOSKELETAL: No cyanosis, or edema. Neuro: Awake and alert Medications and IVs Current Medications Medications (Trade) Dose Ordered Sig/Marni Route Start Time Stop Time Status Last Admin (NS Flush) 2 ml UNSCH PRN IV FLUSH 03/16/17 02:15 (NS Flush) 2 ml BID IV FLUSH 03/16/17 09:00 03/25/17 09:03 (Narcan Inj) 0.4 mg UNSCH PRN IV 03/16/17 02:15 (Atrovent Neb) 0.5 mg Q6HR NEB NEB 03/16/17 10:00 03/25/17 10:13 (Atrovent Neb) 0.5 mg Q2HR NEB PRN NEB 03/16/17 04:30 (Colace) 100 mg TID PO 03/16/17 09:00 03/25/17 09:03 (Ferrous Sulfate) 325 mg DAILY PO 03/16/17 09:00 03/25/17 09:03 (Maple 10-325 Mg) 1 tab Q6H PRN PO 03/16/17 04:45 03/25/17 09:03 (Protonix) 40 mg DAILY PO 03/16/17 09:00 03/25/17 09:03 (Heparin Inj) 5,000 units Q8HR SQ 03/16/17 06:00 03/25/17 06:27 (D50w (Vial) Inj) 25 ml UNSCH PRN IV PUSH 03/16/17 15:00 (NovoLIN R SUPPLEMENTAL SCALE) 1 Q6HR SQ 03/16/17 18:00 Aztreonam 1000 mg/ Sodium Chloride 100 ml @ 200 mls/hr Q8H IV 03/16/17 17:00 03/25/17 09:02 Miscellaneous Information Patient in critical care unit? Ass... Q361D .XX 03/16/17 21:15 03/16/17 21:15 (Brethine Inj) 1 mg UNSCH PRN SQ 03/17/17 02:30 (Lopressor) 25 mg Q12HR PO 03/19/17 01:00 03/25/17 09:03 (Catapres) 0.1 mg Q6H PRN PO 03/19/17 13:00 03/24/17 23:34 (Zofran Inj) 4 mg Q4HR PRN IV PUSH 03/19/17 17:00 03/20/17 08:39 A/P Assessment and Plan 1. Respiratory Insufficiency Bronchodilator and oxygen to keep oxygen saturation over 92%. Stable 2. Septic Shock/Severe Sepsis/Gram Negative Bacteremia/Leukocytosis BC 03/16 GNR, BC 03/17: NGTD UC 03/16: GNR, pseudomonas ID is following and continue on Aztreonam for two weeks and discharge once C may be performed for her. 3. Calcifications left UPJ/ureter, 4. Metabolic encephalopathy Improved. 5. Acute Kidney injury Nephrology specialist following. Status post Cystoscopy and left ureteral stent placement 09/01 patient with Hydronephrosis, has Klebsiella UTI resistant to Levaquin, Sepsis Shock resolved, On Azactam, Discontinued Levaquin and Flagyl by ID specialist. probable ATN has been stable since admission. GI/DVT prophylaxis - on Protonix and Heparin SQ respectively Lines: Left IJ CVP placed 03/17, Discussed with patient, all questions answered to the best of my abilities. Discharge Planning Discharge after [facility] set. Michael Garcia MD Mar 25, 2017 14:19
[2017-03-25] MEDS: LACTIC ACID (AMMONIUM LACTATE) 12% LOTION 225 GM BTL TOPICAL SCH ×2 (18:37→20:38)
[2017-03-26] VITALS (8 sets, daily range): BP systolic 133–175; BP diastolic 68–94; PULSE 66–87; RESP 16–18; TEMP 97.2–98.6; O2SAT 95–99
[2017-03-26] MEDS: AZTREONAM INJ 1,000 MG in SODIUM CHLORIDE 0.9% INJ 100 ML IV SCH ×4 (00:19→23:30)
[2017-03-26] MEDS: RESP: IPRATROPIUM 0.5 MG/2.5 ML NEB NEB SCH ×4 (03:51→21:13)
[2017-03-26] MEDS: HEPARIN SODIUM - SQ 10,000 UNITS/ML VIAL SQ SCH ×3 (05:22→20:35)
[2017-03-26] MEDS: ACETAMINOPHEN/HYDROcodone 325 MG/10 MG TAB PO PRN ×3 (05:22→20:34)
[2017-03-26] MEDS: INSULIN NovoLIN REGULAR SUPPLEMENTAL SCALE SQ SCH ×4 (05:25→23:34)
--- NOTE | 2017-03-26 08:14 | HHI.PR ---
Subjective Remarks Follow-up for hydronephrosis, ureteral calculus, complicated urinary tract infection, acute kidney injury. Patient is currently doing well. However she complains of multiple skin lesions on her back and buttock area and she reports the lesions are extensively pruritic. No fever or chills. Objective Vitals Vital Signs Date Time Temp Pulse Resp B/P (MAP) Pulse Ox O2 Delivery O2 Flow Rate FiO2 03/26/17 06:06 20 03/26/17 04:56 98.6 86 18 158/77 (104) 96 03/26/17 01:02 98.0 67 18 162/77 (105) 95 03/25/17 20:24 100 21 03/25/17 20:00 Room Air 03/25/17 20:00 81 03/25/17 20:00 98.0 84 18 178/84 (115) 97 03/25/17 16:00 98.0 64 20 177/75 (109) 97 03/25/17 13:29 98 03/25/17 12:00 97.8 69 20 164/72 (102) I/O 03/25/17 03/25/17 03/25/17 03/26/17 03/26/17 03/26/17 07:00 15:00 23:00 07:00 15:00 23:00 Intake Total 340 ml 1080 ml Output Total 4300 ml 1200 ml 1300 ml Balance -3960 ml -120 ml -1300 ml Intake Oral 240 ml 1080 ml IV Total 100 ml Output Urine Total 4300 ml 1200 ml 1300 ml # Bowel Movements 0 Result Diagram: 03/23/17 0800 03/24/17 1514 Imaging Last Impressions Chest X-Ray 03/17/17 0000 Signed Impressions: Service Date/Time: Friday, March 17, 2017 02:24 - CONCLUSION: Left IJ central line distal tip in the SVC. No pneumothorax is visualized. Remberto Cooper MD Abdomen/Pelvis CT 03/16/17 0000 Signed Impressions: Service Date/Time: February 20:38 - CONCLUSION: 1. Numerous calcifications seen in the kidneys bilaterally. On the left side there are calcifications seen at the left UPJ/proximal ureter concerning for some obstruction at the left collecting system. 2. Generalized atrophy at the right kidney with a prominent staghorn calculus seen at the right renal collecting system. 3. A moderate amount of stool seen throughout the colon. There are colonic diverticula. 4. Mild distension of much of the small bowel measuring up to 3.5 cm. This is nonspecific. 5. Normal free fluid in the left paracolic gutter region. The cause of this is not clearly identified. 6. Chronic change at the proximal femur and hip regions bilaterally. This is a longstanding issue. 7. Left lower lobe consolidation/pneumonia. Remberto Ashford MD Objective Remarks GENERAL: Alert, oriented 3, NAD. SKIN: Warm and dry. Multiple skin lesions noted on her back as well as buttock area. HEAD: Normocephalic. EYES: No scleral icterus. No injection or drainage. NECK: Supple, trachea midline. No JVD or lymphadenopathy. CARDIOVASCULAR: Regular rate and rhythm without murmurs, gallops, or rubs. RESPIRATORY: Breath sounds equal bilaterally. No accessory muscle use. GASTROINTESTINAL: Abdomen soft, non-tender, nondistended. MUSCULOSKELETAL: No cyanosis, or edema. BACK: Nontender without obvious deformity. No CVA tenderness. Procedures None A/P Problem List: (1) Severe sepsis ICD Code: A41.9 - Sepsis, unspecified organism; R65.20 - Severe sepsis without septic shock Status: Acute (2) Bronchitis ICD Code: J40 - Bronchitis, not specified as acute or chronic Status: Acute (3) UTI (urinary tract infection) ICD Code: N39.0 - Urinary tract infection, site not specified Status: Acute (4) Urinary retention ICD Code: R33.9 - Retention of urine, unspecified Assessment and Plan is a pleasant 76-year-old female with a history of urinary retention with chronic Nagy catheter who presented to the emergency department on 2016 from her [facility] facility with fever. She was admitted to the hospital due to catheter associated complicated urinary tract infection from outside facility. She was given Zosyn, gentamicin, vancomycin all IV. She was initially admitted to the hospitalist service. However, her clinical condition deteriorated which led to ICU admission. She underwent left ureter stent placement as well as left ureteral calculus removal by urologist. She was followed by infectious disease. Sepsis was presumed to be secondary to UTI. Her urine culture grew Escherichia coli as well as pseudomonas. Patient also had acute kidney injury with creatinine 2.47 on admission. Nephrology has been following patient closely. - Septic shock - resolved, likely due to complicated UTI - Bacteremia with Escherichia coli - Complicated UTI with Pseudomonas and Escherichia coli - ID recommends aztreonam for 2 weeks. Patient would likely need SNF placement again. - Repeat blood cultures from 03/17/2017 are negative. - Acute kidney injury - Acute tubular necrosis is suspected. Creatinine improved from 2.47--> 2.06. - Nephrology is on board. - Probable multiple fungal skin lesions. - We'll give patient 1 time dose of IV Benadryl and then continue by mouth Benadryl when necessary - We'll also start topical Benadryl for pruritus - Start ketoconazole 2% topical on skin lesions. - Left hydronephrosis - Obstructing left proximal ureter stones - Status post left stent stent insertion, cystoscopy. Full code. Heparin SQ. Problem Qualifiers (1) UTI (urinary tract infection): Qualified Codes: T83.511A - Infection and inflammatory reaction due to indwelling urethral catheter, initial encounter; N39.0 - Urinary tract infection , site not specified Eliezer Ordaz DO Mar 26, 2017 08:14
[2017-03-26] MEDS: KETOCONAZOLE 2% CREAM 15 GM TOPICAL SCH ×3 (09:45→20:35)
[2017-03-26] MEDS ORDERED: diphenhydrAMINE HCL 50 MG/ML VIAL IM ONE (09:45)
[2017-03-26] MEDS: SODIUM CHLORIDE 0.9% FLUSH 10 ML FLUSH IV FLUSH SCH ×2 (10:14→20:34)
[2017-03-26] MEDS: PANTOPRAZOLE SOD 40 MG DELAYED RELEASE TAB PO SCH (10:15)
[2017-03-26] MEDS: METOPROLOL TARTRATE 25 MG TAB PO SCH ×2 (10:16→20:34)
[2017-03-26] MEDS: DOCUSATE SODIUM 100 MG CAP PO SCH ×3 (10:16→16:27)
[2017-03-26] MEDS: FERROUS SULFATE 325 MG (65 MG ELEMENTAL IRON) TAB PO SCH (10:16)
[2017-03-26] MEDS: LACTIC ACID (AMMONIUM LACTATE) 12% LOTION 225 GM BTL TOPICAL SCH ×2 (10:18→20:36)
[2017-03-26] MEDS: cloNIDine HCL 0.1 MG TAB PO PRN (13:50)
[2017-03-26] MEDS: diphenhydrAMINE HCL 25 MG CAP PO PRN ×2 (16:26→23:30)
[2017-03-26] MEDS: diphenhydrAMINE HCL 2%/ZINC ACETATE 0.1% CREAM 30 APPLIC/30 GM TUBE TOPICAL PRN (20:36)
[2017-03-27] VITALS (10 sets, daily range): BP systolic 116–177; BP diastolic 56–86; PULSE 57–76; RESP 16–20; TEMP 97.5–98.6; O2SAT 95–100
[2017-03-27] MEDS: RESP: IPRATROPIUM 0.5 MG/2.5 ML NEB NEB SCH ×4 (04:00→21:15)
[2017-03-27] MEDS: diphenhydrAMINE HCL 25 MG CAP PO PRN ×3 (05:05→20:27)
[2017-03-27] MEDS: ACETAMINOPHEN/HYDROcodone 325 MG/10 MG TAB PO PRN ×4 (05:06→22:39)
[2017-03-27] MEDS: HEPARIN SODIUM - SQ 10,000 UNITS/ML VIAL SQ SCH ×3 (05:06→20:29)
[2017-03-27] MEDS: INSULIN NovoLIN REGULAR SUPPLEMENTAL SCALE SQ SCH ×4 (06:00→23:18)
[2017-03-27] MEDS: cloNIDine HCL 0.1 MG TAB PO PRN (06:48)
[2017-03-27] MEDS: LACTIC ACID (AMMONIUM LACTATE) 12% LOTION 225 GM BTL TOPICAL SCH ×2 (09:00→20:28)
[2017-03-27] MEDS: METOPROLOL TARTRATE 25 MG TAB PO SCH ×2 (09:00→20:27)
[2017-03-27] MEDS: SODIUM CHLORIDE 0.9% FLUSH 10 ML FLUSH IV FLUSH SCH ×2 (09:44→20:27)
[2017-03-27] MEDS: DOCUSATE SODIUM 100 MG CAP PO SCH ×3 (09:44→16:41)
[2017-03-27] MEDS: PANTOPRAZOLE SOD 40 MG DELAYED RELEASE TAB PO SCH (09:44)
[2017-03-27] MEDS: FERROUS SULFATE 325 MG (65 MG ELEMENTAL IRON) TAB PO SCH (09:44)
[2017-03-27] MEDS: AZTREONAM INJ 1,000 MG in SODIUM CHLORIDE 0.9% INJ 100 ML IV SCH ×2 (09:44→16:42)
[2017-03-27] MEDS: KETOCONAZOLE 2% CREAM 15 GM TOPICAL SCH ×2 (09:45→20:28)
[2017-03-27] MEDS: diphenhydrAMINE HCL 2%/ZINC ACETATE 0.1% CREAM 30 APPLIC/30 GM TUBE TOPICAL PRN (09:45)
--- NOTE | 2017-03-27 14:04 | HHI.PR ---
Subjective Remarks Follow-up for hydronephrosis, ureteral calculus, complicated urinary tract infection, acute kidney injury. Patient is doing well. Her skin lesions are better and less itchy. No fever, chills. Objective Vitals Vital Signs Date Time Temp Pulse Resp B/P (MAP) Pulse Ox O2 Delivery O2 Flow Rate FiO2 03/27/17 12:00 98.2 60 18 116/56 (76) 98 03/27/17 08:00 68 03/27/17 08:00 97.9 64 18 124/78 (93) 97 03/27/17 06:47 162/78 (106) 03/27/17 06:00 98.6 76 18 168/74 (105) 95 03/27/17 04:00 Room Air 03/27/17 00:00 Room Air 03/27/17 00:00 97.6 69 16 177/79 (111) 98 03/26/17 20:14 74 03/26/17 20:00 97.2 74 16 137/68 (91) 96 03/26/17 20:00 Room Air 03/26/17 16:00 97.9 66 18 133/70 (91) 99 I/O 03/26/17 03/26/17 03/26/17 03/27/17 03/27/17 03/27/17 07:00 15:00 23:00 07:00 15:00 23:00 Intake Total 720 ml Output Total 1300 ml 2000 ml 1600 ml Balance -1300 ml -1280 ml -1600 ml Intake Oral 720 ml Output Urine Total 1300 ml 2000 ml 1600 ml # Bowel Movements 0 1 Result Diagram: 03/23/17 0800 03/24/17 1514 Imaging Last Impressions Chest X-Ray 03/17/17 0000 Signed Impressions: Service Date/Time: Friday, March 17, 2017 02:24 - CONCLUSION: Left IJ central line distal tip in the SVC. No pneumothorax is visualized. Remberto Cooper MD Abdomen/Pelvis CT 03/16/17 0000 Signed Impressions: Service Date/Time: February 20:38 - CONCLUSION: 1. Numerous calcifications seen in the kidneys bilaterally. On the left side there are calcifications seen at the left UPJ/proximal ureter concerning for some obstruction at the left collecting system. 2. Generalized atrophy at the right kidney with a prominent staghorn calculus seen at the right renal collecting system. 3. A moderate amount of stool seen throughout the colon. There are colonic diverticula. 4. Mild distension of much of the small bowel measuring up to 3.5 cm. This is nonspecific. 5. Normal free fluid in the left paracolic gutter region. The cause of this is not clearly identified. 6. Chronic change at the proximal femur and hip regions bilaterally. This is a longstanding issue. 7. Left lower lobe consolidation/pneumonia. Remberto Ashford MD Objective Remarks GENERAL: Alert, oriented 3, NAD. SKIN: Warm and dry. Multiple skin lesions noted on her back as well as buttock area. HEAD: Normocephalic. EYES: No scleral icterus. No injection or drainage. NECK: Supple, trachea midline. No JVD or lymphadenopathy. CARDIOVASCULAR: Regular rate and rhythm without murmurs, gallops, or rubs. RESPIRATORY: Breath sounds equal bilaterally. No accessory muscle use. GASTROINTESTINAL: Abdomen soft, non-tender, nondistended. MUSCULOSKELETAL: No cyanosis, or edema. BACK: Nontender without obvious deformity. No CVA tenderness. Procedures None A/P Problem List: (1) Severe sepsis ICD Code: A41.9 - Sepsis, unspecified organism; R65.20 - Severe sepsis without septic shock Status: Acute (2) Bronchitis ICD Code: J40 - Bronchitis, not specified as acute or chronic Status: Acute (3) UTI (urinary tract infection) ICD Code: N39.0 - Urinary tract infection, site not specified Status: Acute (4) Urinary retention ICD Code: R33.9 - Retention of urine, unspecified Assessment and Plan is a pleasant 76-year-old female with a history of urinary retention with chronic Nagy catheter who presented to the emergency department on 2016 from her senior care facility with fever. She was admitted to the hospital due to catheter associated complicated urinary tract infection from outside facility. She was given Zosyn, gentamicin, vancomycin all IV. She was initially admitted to the hospitalist service. However, her clinical condition deteriorated which led to ICU admission. She underwent left ureter stent placement as well as left ureteral calculus removal by urologist. She was followed by infectious disease. Sepsis was presumed to be secondary to UTI. Her urine culture grew Escherichia coli as well as pseudomonas. Patient also had acute kidney injury with creatinine 2.47 on admission. Nephrology has been following patient closely. - Septic shock - resolved, likely due to complicated UTI - Bacteremia with Escherichia coli - Complicated UTI with Pseudomonas and Escherichia coli - ID recommends aztreonam for 2 weeks. Patient would likely need SNF placement. - Repeat blood cultures from 03/17/2017 are negative. - Discussed with ID (Dr. De La Fuente). Will place PICC line. If PICC line is placed, we can potentially discharge patient to SNF. - Acute kidney injury - Acute tubular necrosis is suspected. Creatinine improved from 2.47--> 2.06. - Nephrology is on board. - Probable multiple fungal skin lesions. - continue by mouth Benadryl when necessary - topical Benadryl for pruritus - ketoconazole 2% topical on skin lesions. - Left hydronephrosis - Obstructing left proximal ureter stones - Status post left stent stent insertion, cystoscopy. Full code. Heparin SQ. Problem Qualifiers (1) UTI (urinary tract infection): Qualified Codes: T83.511A - Infection and inflammatory reaction due to indwelling urethral catheter, initial encounter; N39.0 - Urinary tract infection , site not specified Eliezer Ordaz DO Mar 27, 2017 2:04 pm
[2017-03-27] MEDS ORDERED: SODIUM CHLORIDE 0.9% FLUSH 10 ML FLUSH IV FLUSH PRN (15:00)
--- NOTE | 2017-03-27 16:29 | RADRPT ---
EXAM DATE/TIME: 03/27/2017 15:35 [place] COMPARISON: CHEST SINGLE AP, March 17, 2017, 2:24. INDICATIONS : PICC line placement verification. MEDICAL HISTORY : None. SURGICAL HISTORY : None. ENCOUNTER: Subsequent ACUITY: 1 day PAIN SCORE: 0/10 LOCATION: Right chest FINDINGS: A single view of the chest demonstrates the lungs to be symmetrically aerated without evidence of mas s, infiltrate or effusion. The cardiomediastinal contours are unremarkable. Osseous structures are intact. A right-sided PICC line noted with the tip at the caval atrial junction. CONCLUSION: 1. PICC line in good position. 2. Clear lungs. Tay Leach Jr., MD on March 27, 2017 at 16:25 Board Certified Radiologist. This report was verified electronically.
[2017-03-28] VITALS (9 sets, daily range): BP systolic 141–190; BP diastolic 68–88; PULSE 63–86; RESP 18–20; TEMP 97.5–98.4; O2SAT 93–100
[2017-03-28] MEDS: AZTREONAM INJ 1,000 MG in SODIUM CHLORIDE 0.9% INJ 100 ML IV SCH ×3 (00:12→17:00)
[2017-03-28] MEDS: RESP: IPRATROPIUM 0.5 MG/2.5 ML NEB NEB SCH ×4 (04:00→21:19)
[2017-03-28] MEDS: ACETAMINOPHEN/HYDROcodone 325 MG/10 MG TAB PO PRN ×4 (04:20→23:13)
[2017-03-28] MEDS: diphenhydrAMINE HCL 2%/ZINC ACETATE 0.1% CREAM 30 APPLIC/30 GM TUBE TOPICAL PRN (04:20)
[2017-03-28] MEDS: diphenhydrAMINE HCL 25 MG CAP PO PRN ×3 (04:20→20:10)
[2017-03-28] MEDS: HEPARIN SODIUM - SQ 10,000 UNITS/ML VIAL SQ SCH ×3 (04:22→22:00)
[2017-03-28] MEDS: INSULIN NovoLIN REGULAR SUPPLEMENTAL SCALE SQ SCH ×4 (05:34→23:13)
[2017-03-28] MEDS: SODIUM CHLORIDE 0.9% FLUSH 10 ML FLUSH IV FLUSH SCH ×3 (09:43→20:11)
[2017-03-28] MEDS: DOCUSATE SODIUM 100 MG CAP PO SCH ×3 (09:44→17:00)
[2017-03-28] MEDS: FERROUS SULFATE 325 MG (65 MG ELEMENTAL IRON) TAB PO SCH (09:44)
[2017-03-28] MEDS: METOPROLOL TARTRATE 25 MG TAB PO SCH ×2 (09:44→20:10)
[2017-03-28] MEDS: PANTOPRAZOLE SOD 40 MG DELAYED RELEASE TAB PO SCH (09:44)
[2017-03-28] MEDS: KETOCONAZOLE 2% CREAM 15 GM TOPICAL SCH ×2 (09:48→20:00)
[2017-03-28] MEDS: LACTIC ACID (AMMONIUM LACTATE) 12% LOTION 225 GM BTL TOPICAL SCH ×2 (09:52→20:02)
--- NOTE | 2017-03-28 12:55 | HHI.PR ---
Subjective Remarks Follow-up for hydronephrosis, ureteral calculus, complicated urinary tract infection, acute kidney injury. Patient is doing well. Her itchiness is improved. No fever, chills. Objective Vitals Vital Signs Date Time Temp Pulse Resp B/P (MAP) Pulse Ox O2 Delivery O2 Flow Rate FiO2 03/28/17 09:14 98 21 03/28/17 08:00 98.4 86 18 190/88 (122) 93 03/28/17 07:15 98 Room Air 03/28/17 04:00 98.3 68 18 167/81 (109) 99 03/28/17 04:00 Room Air 03/28/17 00:00 98.1 63 20 144/69 (94) 96 03/28/17 00:00 Room Air 03/27/17 21:17 98 03/27/17 20:16 62 03/27/17 20:00 97.5 60 20 176/86 (116) 100 03/27/17 20:00 Room Air 03/27/17 17:00 141/78 (99) 03/27/17 16:00 97.8 57 18 168/72 (104) 96 I/O 03/27/17 03/27/17 03/27/17 03/28/17 03/28/17 03/28/17 07:00 15:00 23:00 07:00 15:00 23:00 Intake Total 100 ml 1670 ml 940 ml Output Total 1600 ml 1950 ml 1650 ml Balance -1500 ml -280 ml -710 ml Intake Oral 1470 ml 840 ml IV Total 100 ml 200 ml 100 ml Output Urine Total 1600 ml 1950 ml 1650 ml # Bowel Movements 1 0 1 Result Diagram: 03/24/17 1514 Imaging Last Impressions Chest X-Ray 03/27/17 0000 Signed Impressions: Service Date/Time: Monday, March 27, 2017 15:35 - CONCLUSION: 1. PICC line in good position. 2. Clear lungs. Tay Leach Jr., MD Abdomen/Pelvis CT 03/16/17 0000 Signed Impressions: Service Date/Time: February 20:38 - CONCLUSION: 1. Numerous calcifications seen in the kidneys bilaterally. On the left side there are calcifications seen at the left UPJ/proximal ureter concerning for some obstruction at the left collecting system. 2. Generalized atrophy at the right kidney with a prominent staghorn calculus seen at the right renal collecting system. 3. A moderate amount of stool seen throughout the colon. There are colonic diverticula. 4. Mild distension of much of the small bowel measuring up to 3.5 cm. This is nonspecific. 5. Normal free fluid in the left paracolic gutter region. The cause of this is not clearly identified. 6. Chronic change at the proximal femur and hip regions bilaterally. This is a longstanding issue. 7. Left lower lobe consolidation/pneumonia. Remberto Ashford MD Objective Remarks GENERAL: Alert, oriented 3, NAD. SKIN: Warm and dry. Multiple skin lesions noted on her back as well as buttock area. HEAD: Normocephalic. EYES: No scleral icterus. No injection or drainage. NECK: Supple, trachea midline. No JVD or lymphadenopathy. CARDIOVASCULAR: Regular rate and rhythm without murmurs, gallops, or rubs. RESPIRATORY: Breath sounds equal bilaterally. No accessory muscle use. GASTROINTESTINAL: Abdomen soft, non-tender, nondistended. MUSCULOSKELETAL: No cyanosis, or edema. BACK: Nontender without obvious deformity. No CVA tenderness. Procedures None A/P Problem List: (1) Severe sepsis ICD Code: A41.9 - Sepsis, unspecified organism; R65.20 - Severe sepsis without septic shock Status: Acute (2) Bronchitis ICD Code: J40 - Bronchitis, not specified as acute or chronic Status: Acute (3) UTI (urinary tract infection) ICD Code: N39.0 - Urinary tract infection, site not specified Status: Acute (4) Urinary retention ICD Code: R33.9 - Retention of urine, unspecified Assessment and Plan is a pleasant 76-year-old female with a history of urinary retention with chronic Nagy catheter who presented to the emergency department on 2016 from [facility] with fever. She was admitted to the hospital due to catheter associated complicated urinary tract infection from outside facility. She was given Zosyn, gentamicin, vancomycin all IV. She was initially admitted to the hospitalist service. However, her clinical condition deteriorated which led to ICU admission. She underwent left ureter stent placement as well as left ureteral calculus removal by urologist. She was followed by infectious disease. Sepsis was presumed to be secondary to UTI. Her urine culture grew Escherichia coli as well as pseudomonas. Patient also had acute kidney injury with creatinine 2.47 on admission. Nephrology has been following patient closely. - Septic shock - resolved, likely due to complicated UTI - Bacteremia with Escherichia coli - Complicated UTI with Pseudomonas and Escherichia coli - ID recommends aztreonam for 2 weeks. Patient would likely need SNF placement. - Repeat blood cultures from 03/17/2017 are negative. - Discussed with ID (Dr. De La Fuente). Will place PICC line. If PICC line is placed, we can potentially discharge patient to SNF. - Acute kidney injury - Acute tubular necrosis is suspected. Creatinine improved from 2.47--> 2.06. - Nephrology is on board. - Probable multiple fungal skin lesions. - continue by mouth Benadryl when necessary - d/c topical benadryl and start topical steroid. - ketoconazole 2% topical on skin lesions. - Left hydronephrosis - Obstructing left proximal ureter stones - Status post left stent stent insertion, cystoscopy. Full code. Heparin SQ. Problem Qualifiers (1) UTI (urinary tract infection): Qualified Codes: T83.511A - Infection and inflammatory reaction due to indwelling urethral catheter, initial encounter; N39.0 - Urinary tract infection , site not specified Eliezer Ordaz DO Mar 28, 2017 12:55
[2017-03-28] MEDS: HYDROCORTISONE 2.5% CREAM 30 GM TOPICAL SCH ×2 (13:00→20:03)
[2017-03-29] VITALS (9 sets, daily range): BP systolic 134–179; BP diastolic 73–86; PULSE 66–85; RESP 16–18; TEMP 97.3–97.8; O2SAT 96–100
[2017-03-29] MEDS: AZTREONAM INJ 1,000 MG in SODIUM CHLORIDE 0.9% INJ 100 ML IV SCH ×3 (03:07→16:44)
[2017-03-29] MEDS: RESP: IPRATROPIUM 0.5 MG/2.5 ML NEB NEB SCH ×4 (03:53→21:04)
[2017-03-29] MEDS: INSULIN NovoLIN REGULAR SUPPLEMENTAL SCALE SQ SCH ×3 (06:00→16:44)
[2017-03-29] MEDS: HEPARIN SODIUM - SQ 10,000 UNITS/ML VIAL SQ SCH ×3 (06:00→21:56)
[2017-03-29] MEDS: SODIUM CHLORIDE 0.9% FLUSH 10 ML FLUSH IV FLUSH SCH ×3 (09:29→21:00)
[2017-03-29] MEDS: DOCUSATE SODIUM 100 MG CAP PO SCH ×3 (09:30→16:43)
[2017-03-29] MEDS: METOPROLOL TARTRATE 25 MG TAB PO SCH ×2 (09:31→21:00)
[2017-03-29] MEDS: LACTIC ACID (AMMONIUM LACTATE) 12% LOTION 225 GM BTL TOPICAL SCH ×2 (09:31→21:00)
[2017-03-29] MEDS: PANTOPRAZOLE SOD 40 MG DELAYED RELEASE TAB PO SCH (09:31)
[2017-03-29] MEDS: FERROUS SULFATE 325 MG (65 MG ELEMENTAL IRON) TAB PO SCH (09:31)
[2017-03-29] MEDS: HYDROCORTISONE 2.5% CREAM 30 GM TOPICAL SCH ×2 (09:31→21:00)
[2017-03-29] MEDS: ACETAMINOPHEN/HYDROcodone 325 MG/10 MG TAB PO PRN ×3 (09:32→22:23)
[2017-03-29] MEDS: KETOCONAZOLE 2% CREAM 15 GM TOPICAL SCH ×2 (09:32→21:00)
[2017-03-29] MEDS: diphenhydrAMINE HCL 25 MG CAP PO PRN ×2 (09:39→18:22)
[2017-03-29] MEDS ORDERED: NIFEdipine 60 MG SUSTAINED RELEASE TAB PO ONE (13:00)
--- NOTE | 2017-03-29 16:10 | HHI.PR ---
Subjective Remarks Follow-up for hydronephrosis, ureteral calculus, complicated urinary tract infection, acute kidney injury. Patient still has persistent itching. No fevers chills. Skin lesions are getting better. Objective Vitals Vital Signs Date Time Temp Pulse Resp B/P (MAP) Pulse Ox O2 Delivery O2 Flow Rate FiO2 03/29/17 13:14 97.6 66 18 134/76 (95) 98 03/29/17 10:59 68 03/29/17 08:42 97.7 84 18 179/82 (114) 96 03/29/17 04:00 97.4 80 18 162/80 (107) 98 03/29/17 00:00 97.4 76 18 154/75 (101) 96 03/28/17 21:20 98 03/28/17 20:16 Room Air 03/28/17 20:07 97.5 78 20 178/77 (110) 96 03/28/17 19:24 73 03/28/17 18:51 20 I/O 03/28/17 03/28/17 03/28/17 03/29/17 03/29/17 03/29/17 07:00 15:00 23:00 07:00 15:00 23:00 Intake Total 940 ml 720 ml 340 ml Output Total 1650 ml 1000 ml 1200 ml Balance -710 ml -280 ml -860 ml Intake Oral 840 ml 720 ml 240 ml IV Total 100 ml 100 ml Output Urine Total 1650 ml 1000 ml 1200 ml # Bowel Movements 1 0 0 Imaging Last Impressions Chest X-Ray 03/27/17 0000 Signed Impressions: Service Date/Time: Monday, March 27, 2017 15:35 - CONCLUSION: 1. PICC line in good position. 2. Clear lungs. Tay Leach Jr., MD Abdomen/Pelvis CT 03/16/17 0000 Signed Impressions: Service Date/Time: February 20:38 - CONCLUSION: 1. Numerous calcifications seen in the kidneys bilaterally. On the left side there are calcifications seen at the left UPJ/proximal ureter concerning for some obstruction at the left collecting system. 2. Generalized atrophy at the right kidney with a prominent staghorn calculus seen at the right renal collecting system. 3. A moderate amount of stool seen throughout the colon. There are colonic diverticula. 4. Mild distension of much of the small bowel measuring up to 3.5 cm. This is nonspecific. 5. Normal free fluid in the left paracolic gutter region. The cause of this is not clearly identified. 6. Chronic change at the proximal femur and hip regions bilaterally. This is a longstanding issue. 7. Left lower lobe consolidation/pneumonia. Remberto Ashford MD Objective Remarks GENERAL: Alert, oriented 3, NAD. SKIN: Warm and dry. Multiple skin lesions noted on her back as well as buttock area - much improved. HEAD: Normocephalic. EYES: No scleral icterus. No injection or drainage. NECK: Supple, trachea midline. No JVD or lymphadenopathy. CARDIOVASCULAR: Regular rate and rhythm without murmurs, gallops, or rubs. RESPIRATORY: Breath sounds equal bilaterally. No accessory muscle use. GASTROINTESTINAL: Abdomen soft, non-tender, nondistended. MUSCULOSKELETAL: No cyanosis, or edema. BACK: Nontender without obvious deformity. No CVA tenderness. Procedures None A/P Problem List: (1) Severe sepsis ICD Code: A41.9 - Sepsis, unspecified organism; R65.20 - Severe sepsis without septic shock Status: Acute (2) Bronchitis ICD Code: J40 - Bronchitis, not specified as acute or chronic Status: Acute (3) UTI (urinary tract infection) ICD Code: N39.0 - Urinary tract infection, site not specified Status: Acute (4) Urinary retention ICD Code: R33.9 - Retention of urine, unspecified Assessment and Plan is a pleasant 76-year-old female with a history of urinary retention with chronic Nagy catheter who [facility] the [facility] department [facility] with [facility]. She was admitted to the hospital due to catheter associated complicated urinary tract infection from outside facility. She was given Zosyn, gentamicin, vancomycin all IV. She was initially admitted to the hospitalist service. However, her clinical condition deteriorated which led to ICU admission. She underwent left ureter stent placement as well as left ureteral calculus removal by urologist. She was followed by infectious disease. Sepsis was presumed to be secondary to UTI. Her urine culture grew Escherichia coli as well as pseudomonas. Patient also had acute kidney injury with creatinine 2.47 on admission. Nephrology has been following patient closely. - Septic shock - resolved, likely due to complicated UTI - Bacteremia with Escherichia coli - Complicated UTI with Pseudomonas and Escherichia coli - ID recommends aztreonam for 2 weeks ( end date 04/05/2017). - Repeat blood cultures from 03/17/2017 are negative. - Discussed with ID (Dr. De La Fuente). Will place PICC line. If PICC line is placed, we can potentially discharge patient to [facility]. - Patient will likely go to [facility]. Unfortunately, due to disruption of electricity, they are not able to take her yet. - Acute kidney injury - Acute tubular necrosis is suspected. Creatinine improved from 2.47--> 2.06. - Nephrology is on board. - Probable multiple fungal skin lesions. - continue by mouth Benadryl when necessary - d/c topical benadryl and start topical steroid. - ketoconazole 2% topical on skin lesions. - Left hydronephrosis - Obstructing left proximal ureter stones - Status post left stent stent insertion, cystoscopy. Full code. Heparin SQ. Discharge plan: Due to lack of electricity, patient is not able to go to [facility]. Patient is ready to be discharged. Problem Qualifiers (1) UTI (urinary tract infection): Qualified Codes: T83.511A - Infection and inflammatory reaction due to indwelling urethral catheter, initial encounter; N39.0 - Urinary tract infection , site not specified Eliezer Ordaz DO Mar 29, 2017 4:10 pm
[2017-03-30] VITALS (8 sets, daily range): BP systolic 121–154; BP diastolic 63–88; PULSE 73–88; RESP 18–22; TEMP 97.5–98.6; O2SAT 95–99
[2017-03-30] MEDS: diphenhydrAMINE HCL 25 MG CAP PO PRN ×3 (02:05→21:41)
[2017-03-30] MEDS: AZTREONAM INJ 1,000 MG in SODIUM CHLORIDE 0.9% INJ 100 ML IV SCH ×3 (02:07→16:26)
[2017-03-30] MEDS: ACETAMINOPHEN/HYDROcodone 325 MG/10 MG TAB PO PRN ×4 (02:07→21:41)
[2017-03-30] MEDS: RESP: IPRATROPIUM 0.5 MG/2.5 ML NEB NEB SCH ×4 (04:00→20:15)
[2017-03-30] MEDS: INSULIN NovoLIN REGULAR SUPPLEMENTAL SCALE SQ SCH ×3 (06:00→12:00)
[2017-03-30] MEDS: HEPARIN SODIUM - SQ 10,000 UNITS/ML VIAL SQ SCH ×3 (06:34→21:33)
[2017-03-30] MEDS: METOPROLOL TARTRATE 25 MG TAB PO SCH ×2 (08:45→21:41)
[2017-03-30] MEDS: FERROUS SULFATE 325 MG (65 MG ELEMENTAL IRON) TAB PO SCH (08:45)
[2017-03-30] MEDS: PANTOPRAZOLE SOD 40 MG DELAYED RELEASE TAB PO SCH (08:45)
[2017-03-30] MEDS: NIFEdipine 60 MG SUSTAINED RELEASE TAB PO SCH (08:46)
[2017-03-30] MEDS: SODIUM CHLORIDE 0.9% FLUSH 10 ML FLUSH IV FLUSH SCH ×3 (08:46→21:00)
[2017-03-30] MEDS: DOCUSATE SODIUM 100 MG CAP PO SCH ×3 (08:46→16:26)
[2017-03-30] MEDS: HYDROCORTISONE 2.5% CREAM 30 GM TOPICAL SCH ×3 (08:54→16:28)
[2017-03-30] MEDS: LACTIC ACID (AMMONIUM LACTATE) 12% LOTION 225 GM BTL TOPICAL SCH ×2 (08:55→21:00)
[2017-03-30] MEDS: KETOCONAZOLE 2% CREAM 15 GM TOPICAL SCH ×2 (08:55→21:00)
--- NOTE | 2017-03-30 11:01 | HHI.PR ---
Subjective Remarks Follow-up for hydronephrosis, ureteral calculus, complicated urinary tract infection, acute kidney injury. Patient is currently doing well except she has a lot of itchiness but not over her body. No fever or chills. Objective Vitals Vital Signs Date Time Temp Pulse Resp B/P (MAP) Pulse Ox O2 Delivery O2 Flow Rate FiO2 03/30/17 08:00 97.8 86 18 147/77 (100) 99 03/30/17 04:00 98.6 86 20 121/76 (91) 98 03/30/17 00:00 97.5 86 22 154/63 (93) 98 03/29/17 21:58 Room Air 03/29/17 21:04 98 03/29/17 20:39 82 03/29/17 20:00 97.8 80 18 150/73 (98) 100 03/29/17 18:21 20 03/29/17 16:00 97.3 85 16 162/86 (111) 98 03/29/17 13:14 97.6 66 18 134/76 (95) 98 I/O 03/29/17 03/29/17 03/29/17 03/30/17 03/30/17 03/30/17 07:00 15:00 23:00 07:00 15:00 23:00 Intake Total 340 ml 240 ml 720 ml Output Total 1200 ml 750 ml 1900 ml Balance -860 ml -510 ml -1180 ml Intake Oral 240 ml 240 ml 620 ml IV Total 100 ml 100 ml Output Urine Total 1200 ml 750 ml 1900 ml # Bowel Movements 0 0 0 Objective Remarks GENERAL: Alert, oriented 3, NAD. SKIN: Warm and dry. Multiple skin lesions noted on her back as well as buttock area - much improved. HEAD: Normocephalic. EYES: No scleral icterus. No injection or drainage. NECK: Supple, trachea midline. No JVD or lymphadenopathy. CARDIOVASCULAR: Regular rate and rhythm without murmurs, gallops, or rubs. RESPIRATORY: Breath sounds equal bilaterally. No accessory muscle use. GASTROINTESTINAL: Abdomen soft, non-tender, nondistended. MUSCULOSKELETAL: No cyanosis, or edema. BACK: Nontender without obvious deformity. No CVA tenderness. Procedures None A/P Problem List: (1) Severe sepsis ICD Code: A41.9 - Sepsis, unspecified organism; R65.20 - Severe sepsis without septic shock Status: Acute (2) Bronchitis ICD Code: J40 - Bronchitis, not specified as acute or chronic Status: Acute (3) UTI (urinary tract infection) ICD Code: N39.0 - Urinary tract infection, site not specified Status: Acute (4) Urinary retention ICD Code: R33.9 - Retention of urine, unspecified Assessment and Plan is a pleasant 76-year-old female with a history of urinary retention with chronic Nagy catheter who presented to the emergency department on 2016 from her [facility] facility with fever. She was admitted to the hospital due to catheter associated complicated urinary tract infection from outside facility. She was given Zosyn, gentamicin, vancomycin all IV. She was initially admitted to the hospitalist service. However, her clinical condition deteriorated which led to ICU admission. She underwent left ureter stent placement as well as left ureteral calculus removal by urologist. She was followed by infectious disease. Sepsis was presumed to be secondary to UTI. Her urine culture grew Escherichia coli as well as pseudomonas. Patient also had acute kidney injury with creatinine 2.47 on admission. Nephrology has been following patient closely. - Septic shock - resolved, likely due to complicated UTI - Bacteremia with Escherichia coli - Complicated UTI with Pseudomonas and Escherichia coli - ID recommends aztreonam for 2 weeks ( end date 04/05/2017). - Repeat blood cultures from 03/17/2017 are negative. - Discussed with ID (Dr. De La Fuente). Will place PICC line. If PICC line is placed, we can potentially discharge patient to SNF. - Patient will likely go to [facility]. Unfortunately, due to disruption of electricity, they are not able to take her yet. - Acute kidney injury - Acute tubular necrosis is suspected. Creatinine improved from 2.47--> 2.06. - Nephrology is on board. - Probable multiple fungal skin lesions. - continue by mouth Benadryl when necessary, increase Benadryl to 50 mg. - d/c topical benadryl. Continue topical steroid, increase frequency to every 6 hours. - ketoconazole 2% topical on skin lesions. - Left hydronephrosis - Obstructing left proximal ureter stones - Status post left stent stent insertion, cystoscopy. Full code. Heparin SQ. Discharge plan: Due to lack of electricity, patient is not able to go to [facility]. Problem Qualifiers (1) UTI (urinary tract infection): Qualified Codes: T83.511A - Infection and inflammatory reaction due to indwelling urethral catheter, initial encounter; N39.0 - Urinary tract infection , site not specified Eliezer Ordaz DO Mar 30, 2017 11:01 am
[2017-03-30] MEDS ORDERED: KETO2CRE TOPICAL (11:17)
[2017-03-30] MEDS ORDERED: CLON.1 PO (11:17)
[2017-03-30] MEDS ORDERED: METO25TA3 PO (11:17)
[2017-03-30] MEDS ORDERED: NIFE60TA8 PO (11:17)
[2017-03-30] MEDS ORDERED: HYDR-3366 PO (11:17)
[2017-03-30] MEDS ORDERED: DIPH25CA PO (11:21)
--- NOTE | 2017-03-30 12:57 | HHI.FF ---
Infusion Therapy Location of Infusion Therapy: [facility] Infusion Therapy Order Patient Information Patient Weight 71 kg Diagnosis: (1) UTI (urinary tract infection) (2) Severe sepsis Coded Allergies: cephalexin (Verified Allergy, Unknown, 03/16/17) erythromycin base (Verified Allergy, Unknown, 03/16/17) shellfish derived (Verified Allergy, Unknown, 03/16/17) Additional Information Additional Medications Aztreonam 1000mg Q8hrs STOP date 04/05/2017. Venous access: PICC Line Additional Instructions [x] Peripheral flush and dressing changes per protocol [x] Implanted port and central ladle liner: * Implanted port: 10 ml Normal Saline followed by 5 ml Heparin 100 units/ml Heparin flush after each use and monthly to maintain. [] May leave port accessed during therapy. [] May leave peripheral site accessed for duration of therapy. [x] If patient has SOB or respiratory distress, check oxygen saturation. If less than 90% or clinical signs of respiratory distress, administer oxygen at 2 L/min. via nasal cannula and notify physician. [x] Anaphylaxis/Reaction orders: * Stop infusion. * Keep IV line open with saline flush. * Notify physician. * Monitor vital signs every 15 minutes until symptoms resolve. * Check Oxygen saturation; Oxygen at 2 L/min. via nasal cannula if less than 90% or clinical signs of respiratory distress. * Administer diphenhydramine (Benadryl) 25 mg IV STAT, (unless patient has received as pre-med). May repeat once, if necessary. * Solu-Cortef 250 mg IVP over 30-60 seconds, use 100 mg vials for each dissolution. * Epinephrine (1mg/1 ml) 0.3 mg subcutaneously or IVP now with any signs of respiratory distress. * Check with physician for new additional pre-med orders if patient is re- challenged or re-treated. [x] May remove PICC line when treatment complete, after confirming with Physician. [x] If the patient is admitted to the hospital, the ED, or transferred via [facility] , complete transfer form including medication reconciliation order sheet. Laboratory Tests Weekly Labs: BMP, CBC w/diff Eliezer Ordaz DO Mar 30, 2017 12:57 pm
[2017-03-31] VITALS: BP 141/82; PULSE 84; RESP 16; TEMP 97.4; O2SAT 96
[2017-03-31] MEDS: AZTREONAM INJ 1,000 MG in SODIUM CHLORIDE 0.9% INJ 100 ML IV SCH ×2 (01:09→09:18)
[2017-03-31] MEDS: HYDROCORTISONE 2.5% CREAM 30 GM TOPICAL SCH ×3 (01:09→09:20)
[2017-03-31 04:00] VITALS: BP 154/73; PULSE 86; RESP 18; TEMP 98; O2SAT 96
[2017-03-31] MEDS: RESP: IPRATROPIUM 0.5 MG/2.5 ML NEB NEB SCH ×2 (04:00→08:02)
[2017-03-31] MEDS: HEPARIN SODIUM - SQ 10,000 UNITS/ML VIAL SQ SCH (06:00)
[2017-03-31 08:00] VITALS: BP 148/81; PULSE 92; RESP 18; TEMP 98.1; O2SAT 96
[2017-03-31] MEDS: KETOCONAZOLE 2% CREAM 15 GM TOPICAL SCH (09:00)
[2017-03-31] MEDS: LACTIC ACID (AMMONIUM LACTATE) 12% LOTION 225 GM BTL TOPICAL SCH (09:00)
[2017-03-31] MEDS: SODIUM CHLORIDE 0.9% FLUSH 10 ML FLUSH IV FLUSH SCH ×2 (09:00)
[2017-03-31] MEDS: DOCUSATE SODIUM 100 MG CAP PO SCH (09:19)
[2017-03-31] MEDS: PANTOPRAZOLE SOD 40 MG DELAYED RELEASE TAB PO SCH (09:19)
[2017-03-31] MEDS: NIFEdipine 60 MG SUSTAINED RELEASE TAB PO SCH (09:19)
[2017-03-31] MEDS: METOPROLOL TARTRATE 25 MG TAB PO SCH (09:19)
[2017-03-31] MEDS: FERROUS SULFATE 325 MG (65 MG ELEMENTAL IRON) TAB PO SCH (09:19)
[2017-03-31] MEDS: ACETAMINOPHEN/HYDROcodone 325 MG/10 MG TAB PO PRN (09:19)
--- NOTE | 2017-03-31 10:17 | HHI.DS ---
Discharge Summary Admission Date Mar 16, 2017 at 02:30 Discharge Date: Mar 31, 2017 Admitting Diagnosis severe sepsis from UTI (1) Severe sepsis ICD Code: A41.9 - Sepsis, unspecified organism; R65.20 - Severe sepsis without septic shock Diagnosis: Principal Status: Acute (2) Bronchitis ICD Code: J40 - Bronchitis, not specified as acute or chronic Diagnosis: Secondary Status: Acute (3) UTI (urinary tract infection) ICD Code: N39.0 - Urinary tract infection, site not specified Diagnosis: Principal Status: Acute (4) Urinary retention ICD Code: R33.9 - Retention of urine, unspecified Diagnosis: Principal Procedures Left ureteral stent placed by urology 03/17/17 Brief History - From Admission Written by JIMY Howell acting as scribe for [Daleng] on 03/16/17 at 04: 20. 76 y/o female with a history of gerd, anemia, HTN, depression, hypothyroid, and urinary retention with a chronic catheter was brought to the ED from a SNF for fever. Patient states she started vomiting today, and does not know the last time her catheter was changed. Patient is lethargic and ROS is difficult to assess. She denies any chest pain or sob. She grimaces when abdomen is palpitated. She is very diaphoretic at this time. Most of patients history is obtained from penitentiary documentation. Imaging Last Impressions Chest X-Ray 03/27/17 0000 Signed Impressions: Service Date/Time: Monday, March 27, 2017 15:35 - CONCLUSION: 1. PICC line in good position. 2. Clear lungs. Tay Leach Jr., MD Abdomen/Pelvis CT 03/16/17 0000 Signed Impressions: Service Date/Time: February 20:38 - CONCLUSION: 1. Numerous calcifications seen in the kidneys bilaterally. On the left side there are calcifications seen at the left UPJ/proximal ureter concerning for some obstruction at the left collecting system. 2. Generalized atrophy at the right kidney with a prominent staghorn calculus seen at the right renal collecting system. 3. A moderate amount of stool seen throughout the colon. There are colonic diverticula. 4. Mild distension of much of the small bowel measuring up to 3.5 cm. This is nonspecific. 5. Normal free fluid in the left paracolic gutter region. The cause of this is not clearly identified. 6. Chronic change at the proximal femur and hip regions bilaterally. This is a longstanding issue. 7. Left lower lobe consolidation/pneumonia. Remberto Ashford MD PE at Discharge GENERAL: Alert, oriented 3, NAD. SKIN: Warm and dry. Multiple skin lesions noted on her back as well as buttock area - much improved. HEAD: Normocephalic. EYES: No scleral icterus. No injection or drainage. NECK: Supple, trachea midline. No JVD or lymphadenopathy. CARDIOVASCULAR: Regular rate and rhythm without murmurs, gallops, or rubs. RESPIRATORY: Breath sounds equal bilaterally. No accessory muscle use. GASTROINTESTINAL: Abdomen soft, non-tender, nondistended. MUSCULOSKELETAL: No cyanosis, or edema. BACK: Nontender without obvious deformity. No CVA tenderness. Pt update on day of discharge SNF placement has been arranged by case management. Patient has questions regarding follow-up after discharge, all answered to the best my ability. No acute complaints. Hospital Course is a pleasant 76-year-old female with a history of urinary retention with chronic Nagy catheter who presented to the emergency department on 2016 from [facility] with fever. She was admitted to the hospital due to catheter associated complicated urinary tract infection from outside facility. She was given Zosyn, gentamicin, vancomycin all IV. She was initially admitted to the hospitalist service. However, her clinical condition deteriorated which led to ICU admission. She underwent left ureter stent placement as well as left ureteral calculus removal by urologist. She was followed by infectious disease, recommended continuing IV aztreonam until , PICC line was placed. Sepsis was presumed to be secondary to UTI. Her urine culture grew Escherichia coli as well as pseudomonas. Patient also had acute kidney injury with creatinine 2.47 on admission. Nephrology followed patient closely, renal function stable and cleared for discharge. Given ketoconazole cream for possible fungal rash on the back. Discharged back to SNF. Pt Condition on Discharge: Good Discharge Disposition: Discharge to SNF Discharge Time: > 30 minutes Discharge Instructions DIET: Follow Instructions for: Heart Healthy Diet Activities you can perform: Regular-No Restrictions Follow up Referrals: Nephrology - 3 Weeks with Sloan Chau MD [facility]/ Urology - 2 Weeks with Christiano Marquez MD New Medications: Diphenhydramine (Diphenhydramine) 25 Mg Cap 50 MG PO Q6H PRN for ALLERGIES for 30 Days, #240 CAP 0 Refills Hold for sedation. Clonidine (Catapres) 0.1 Mg Tab 0.1 MG PO Q6H PRN for SBP>160, DBP>90 for 30 Days, #120 TAB Ketoconazole Topical (Ketoconazole Topical) 2% Cream 1 APPLIC TOPICAL Q12HR for Infection for 30 Days, TUBE Metoprolol Tartrate (Metoprolol Tartrate) 25 Mg Tab 25 MG PO Q12HR for Heart, #60 TAB Nifedipine ER 24 HR (Nifedipine ER 24 HR) 60 Mg Tab 60 MG PO DAILY for Blood Pressure Management, #30 TAB Continued Medications: Albuterol Neb (Albuterol Neb) 2.5 Mg/3 Ml Neb 2.5 MG NEB Q4HR NEB for Breathing Treatment, #60 NEBULE 0 Refills While awake Docusate Sodium (Colace) 100 Mg Capsule 100 MG PO TID Ferrous Sulfate (Ferrous Sulfate) 325 Mg (65 Mg Iron) Tablet 325 MG PO DAILY for Nutritional Supplement, #30 TAB 0 Refills Fluticasone Nasal [place] (Fluticasone Nasal [place]) 50 Mcg/Act Naspr 50 MCG EACH NARE BID for Allergy Management, #1 BOTTLE 0 Refills 50 mcg/spray Gabapentin (Gabapentin) 400 Mg Cap 400 CAP PO HS, #30 CAP 0 Refills Guaifenesin ER (Mucus Relief ER) 600 Mg Tab 600 MG PO BID PRN for CHEST CONGESTION AND/OR COUGH, TAB 0 Refills Hydrocodone-Acetaminophen (Kamrar) 10-325 Mg Tab 1 TAB PO Q6H PRN for PAIN, #20 TAB 0 Refills (This prescription has been renewed ) Lactic Acid (Ammonium Lactate) (Lac-Hydrin Five) 5 % Lot Magnesium Hydroxide Liq (Milk of Magnesia Liq) 400 Mg/5 Ml Susp 15 ML PO DAILY PRN for INDIGESTION OR UPSET STOMACH, #1 BOTTLE 0 Refills Menthol Topical (Aspercreme Heat Topical) 10 % Gel 1 APPLIC TOPICAL DIRECTED PRN for PAIN, #1 TUBE 0 Refills Mirtazapine (Mirtazapine) 15 Mg Tab 15 MG PO HS for Depression Control, #30 TAB 0 Refills Multivit with Calcium,Iron,Min (Multiple Vitamins For Women) 1 Each Tablet Pantoprazole (Protonix) 40 Mg Tab 40 MG PO DAILY for Reflux, #30 TAB 0 Refills Tizanidine (Tizanidine) 2 Mg Cap 2 MG PO TID for Muscle Spasm, CAP 0 Refills Triamcinolone Acetonide (Topic (Triamcinolone Acetonide) 100 % Pow BID Discontinued Medications: Bisacodyl Supp (Dulcolax Supp) 10 Mg Supp 10 MG RECTAL DAILY PRN for CONSTIPATION, #12 SUPP 0 Refills Clonidine (Clonidine) 0.1 Mg Tab 0.1 MG PO TID for Blood Pressure Management, #60 TAB 0 Refills Magnesium Citrate Liq (Magnesium Citrate Liq) 300 Ml Btl Nystatin Topical (Nystatin Topical) 100,000 unit/gm Cream 1 APPLIC TOPICAL BID for Infection, #15 GM 0 Refills Sennosides (Sennosides) 8.6 Mg Tab 8.6 MG PO HS for Constipation, TAB 0 Refills Sodium Phosphates (Enema Disposable) 19 Gram-7 Gram/118 Ml Jaylon Aranda Mar 31, 2017 10:17
== END 2017-03-31 12:00 | DRG 698 ==
LOC: NEPC 00:07 → NEDA 02:30 → HCIS 05:14 → HIMW 14:00 → N04B 03-20 19:02
PROVIDERS: ADMIT Hospitalist; ATTEND Hospitalist
PROC: 0T2BX0Z Change Drainage Device in Bladder, External Approach (ICD-10-PCS; 2017-03-16)
PROC: 0TJB8ZZ Inspection of Bladder, Via Natural or Artificial Opening Endoscopic (ICD-10-PCS; 2017-03-17)
PROC: 0T778DZ Dilation of Left Ureter with Intraluminal Device, Via Natural or Artificial Opening Endoscopic (ICD-10-PCS; 2017-03-17)
PROC: 05HN33Z Insertion of Infusion Device into Left Internal Jugular Vein, Percutaneous Approach (ICD-10-PCS; principal; 2017-03-17 14:52)
DX: T83.511A Infection and inflammatory reaction due to indwelling urethral catheter, initial encounter (principal); A41.59 Other Gram-negative sepsis; N17.0 Acute kidney failure with tubular necrosis; R65.21 Severe sepsis with septic shock; G93.41 Metabolic encephalopathy; N17.9 Acute kidney failure, unspecified; J98.11 Atelectasis; E44.0 Moderate protein-calorie malnutrition; E87.2 Acidosis; N13.2 Hydronephrosis with renal and ureteral calculous obstruction; N39.0 Urinary tract infection, site not specified; N18.9 Chronic kidney disease, unspecified; I12.9 Hypertensive chronic kidney disease with stage 1 through stage 4 chronic kidney disease, or unspecified chronic kidney disease; E03.9 Hypothyroidism, unspecified; K21.9 Gastro-esophageal reflux disease without esophagitis; J40 Bronchitis, not specified as acute or chronic; Y84.6 Urinary catheterization as the cause of abnormal reaction of the patient, or of later complication, without mention of misadventure at the time of the procedure; R73.9 Hyperglycemia, unspecified; N31.9 Neuromuscular dysfunction of bladder, unspecified; Z74.01 Bed confinement status; M19.90 Unspecified osteoarthritis, unspecified site; B96.5 Pseudomonas (aeruginosa) (mallei) (pseudomallei) as the cause of diseases classified elsewhere
CPT/HCPCS: 36556; 36569; 71010; 74176; 76937; 80048; 80053; 80069; 81001; 82948; 83605; 84155; 85007; 85025; 85027; 87040; 87077; 87086; 87186; 87205; 87641; 87804; 93005; 94640; 94664; 99291; C1769; J1170; J1200; J1580; J1642; J1644; J1956; J2175; J2370; J2405; J2710; J3010; J3370; J7030; J7050; J7644; Q9963